=== PATIENT | male | born 1960 | race Caucasian/White ===

== ENCOUNTER 2017-07-16 13:10 | Emergency (ER) | payer OTHER, SELFPAY ==
[~2017-07-16] VITALS: Ht 175.3 cm; Wt 81.7 kg
[~2017-07-16 13:10] MED LIST: ALBU90OI INH; ALPR.5 PO; AMLO10 PO; AMLO5 PO; ARIP15 PO; ARIP20 PO; ASPI81CH PO; ASPI81EC PO; ATOR10 PO; CALCIUM 500-VI1 EACH PO; CHOL10002 PO; DICLOFENAC TOP; DIGO.125 PO; DIGOXIN; DIPATR PO; DULERA 100 MCG/13 GM INH; DULO30 PO; DULO60 PO; ENOX30I SC; ESCI20 PO; FAMO20 PO; FENO160 PO; FERGLU300 PO; FERR325 PO; FISH1000 PO; FURO20 PO; Ferrous Glucon324 MG PO; GABA300 PO; HYDACE5325 PO; HYDHCL25 PO; HYDMOR2 PO; HYDR1TAB94 PO; IRON150C PO; K-Dur10 MEQ PO; Keflex500 MG PO; LEVFLO500 PO; LISI20 PO; LISI5 PO; LORA.5 PO; MEDICAL MARIJUANA; MELO7.5 PO; METO25 PO; NITR.4SL SL; OMEG1CAP30 PO; OMEP20ER PO; OMEP40CA12 PO; OMEPRAZOLE MAGN20 MG PO; ONDA4ODT MM; ONDA8 PO; OXYACE5T PO; OXYC10TA19 PO; OXYC5 PO; Omeprazole20 M1 PO; PANT40 PO; PROM25 PO; RXOXYACE PO; RXPROM25S PR; SENN187 PO; SERT25 PO; SPIR50 PO; Senna-Docusate1 EACH PO; TRAM50 PO; TRAZ50 PO; TRIGLIDE; VANC250 PO; WARF4 PO; WARF6 PO; Zofran Odt4 MG SL; Zofran8 MG PO; [UNRECOGNIZED DRUG - CODE]
[2017-07-16 13:49] LABS: Source, Urine Clean Catch
[2017-07-16 14:06] LABS: Bilirubin, Urine Neg (Neg); Blood, Urine 5+ (Neg); Glucose Qualitative, Urine Neg (Neg); Ketones, Urine Neg (Neg); Leukocyte Esterase, Urine 2+ (Neg); Nitrite, Urine Neg (Neg); Protein, Urine 3+ (Neg); Specific Gravity, Urine 1.015 (1.003-1.022); Urobilinogen, Urine 1+ (Normal)
[2017-07-16 14:21] LABS: Appearance, Urine Cloudy (Clear); Color, Urine Red (P-Yellow)
[2017-07-16 14:30] LABS: Red Blood Cells, Urine TNTC /hpf (0-2)
[2017-07-16 14:31] LABS: Bacteria Few /hpf; Squamous Epithelial Cells Rare /hpf (Few)
[2017-07-16 15:00] LABS: BASOPHILS ABSOLUTE AUTO 0.02 K/mm3 (0.00-0.23); BASOPHILS PERCENT AUTO 0 % (0-2); EOSINOPHILS ABSOLUTE AUTO 0.23 K/mm3 (0.00-0.68); EOSINOPHILS PERCENT AUTO 3 % (0-6); Hematocrit 40.6 % (37.0-53.0); Hemoglobin 13.3 g/dL (13.5-17.5); IMMATURE GRAN ABSOLUTE AUTO 0.05 K/mm3 (0.00-0.10); IMMATURE GRAN PERCENT AUTO 1 % (0-1); LYMPHOCYTES ABSOLUTE AUTO 0.93 K/mm3 (0.84-5.20); LYMPHOCYTES PERCENT AUTO 10 % (21-46); MONOCYTES ABSOLUTE AUTO 0.99 K/mm3 (0.16-1.47); MONOCYTES PERCENT AUTO 11 % (4-13); Mean Corpuscular HGB 26.4 pg (26.0-34.0); Mean Corpuscular HGB Conc 32.8 g/dL (31.5-36.5); Mean Corpuscular Volume 81 fL (80-100); Mean Platelet Volume 9.6 fL (9.1-12.4); NEUTROPHILS ABSOLUTE AUTO 7.02 K/mm3 (1.96-9.15); NEUTROPHILS PERCENT AUTO 76 % (41-73); Platelet Count 277 K/mm3 (150-400); RDW Coefficient Variation 20.1 % (11.7-14.2); RDW Standard Deviation 57.5 fL (35.1-46.3); Red Blood Cell Count 5.03 M/mm3 (4.30-5.90); White Blood Cell Count 9.24 K/mm3 (4.00-11.30)
[2017-07-16 15:22] LABS: Alanine Aminotransfer (ALT/SGP 31 U/L (12-78); Albumin, Blood 3.9 g/dL (3.4-5.0); Alk Phos 93 U/L (50-136); Anion Gap 7 mmol/L (6-16); Aspartate Aminotrans (AST/SGOT 26 U/L (12-37); Bilirubin, Total 0.5 mg/dL (0.1-1.0); Blood Urea Nitrogen 22 mg/dL (8-24); Bun/Creatinine Ratio 24.5 (12.0-20.0); CO2, Blood 25 mmol/L (21-32); Calcium, Blood 8.1 mg/dL (8.5-10.1); Chloride, Blood 113 mmol/L (98-108); Globulin, Blood 3.9 g/dL (2.2-4.0); Glomerular Filtration Rate >60 (60-); Glucose, Blood 91 mg/dL (70-99); Potassium, Blood 3.8 mmol/L (3.5-5.5); Sodium, Blood 145 mmol/L (136-145); Total Protein, Blood 7.8 g/dL (6.4-8.2)
[2017-07-16 15:35] LABS: Prothrombin Time Results 148.7 Sec (9.7-11.5)
[2017-07-16 15:37] LABS: International Normalized Ratio < 10.00
[2017-07-16 21:22] LABS: International Normalized Ratio 2.38
[2017-07-16 21:30] LABS: Prothrombin Time Results 25.4 Sec (9.7-11.5)
== END 2017-07-16 21:45 | disposition home or self-care (01) ==
LOC: ER 13:10
PROVIDERS: Emergency Medicine
DX: R31.9 Hematuria, unspecified (principal); R79.1 Abnormal coagulation profile; I48.91 Unspecified atrial fibrillation; J44.9 Chronic obstructive pulmonary disease, unspecified; F32.9 Major depressive disorder, single episode, unspecified; I10 Essential (primary) hypertension; Z88.2 Allergy status to sulfonamides; Z88.0 Allergy status to penicillin; Z79.899 Other long term (current) drug therapy; Z79.82 Long term (current) use of aspirin; Z79.01 Long term (current) use of anticoagulants; Z95.2 Presence of prosthetic heart valve; Z95.1 Presence of aortocoronary bypass graft
CPT/HCPCS: 36415; 36430; 51798; 80053; 81001; 85025; 85610; 86900; 86901; 87086; 96361; 96374; 96375; 99285; J0171; J1200; J2405; J2930; J3430; J3490; J7030; P9059

== ENCOUNTER 2017-10-12 08:41 | Emergency (ER) | payer OTHER, SELFPAY ==
[~2017-10-12] VITALS: Ht 175.3 cm; Wt 80.7 kg
[2017-10-12 09:12] LABS: BASOPHILS ABSOLUTE AUTO 0.05 K/mm3 (0.00-0.23); BASOPHILS PERCENT AUTO 0 % (0-2); EOSINOPHILS ABSOLUTE AUTO 0.17 K/mm3 (0.00-0.68); EOSINOPHILS PERCENT AUTO 1 % (0-6); Hematocrit 54.3 % (37.0-53.0); IMMATURE GRAN ABSOLUTE AUTO 0.07 K/mm3 (0.00-0.10); IMMATURE GRAN PERCENT AUTO 1 % (0-1); LYMPHOCYTES ABSOLUTE AUTO 1.08 K/mm3 (0.84-5.20); LYMPHOCYTES PERCENT AUTO 7 % (21-46); MONOCYTES ABSOLUTE AUTO 0.94 K/mm3 (0.16-1.47); MONOCYTES PERCENT AUTO 6 % (4-13); Mean Corpuscular HGB 24.7 pg (26.0-34.0); Mean Corpuscular HGB Conc 31.3 g/dL (31.5-36.5); Mean Corpuscular Volume 79 fL (80-100); Mean Platelet Volume 9.6 fL (9.1-12.4); NEUTROPHILS ABSOLUTE AUTO 13.12 K/mm3 (1.96-9.15); NEUTROPHILS PERCENT AUTO 85 % (41-73); Platelet Count 381 K/mm3 (150-400); RDW Coefficient Variation 17.2 % (11.7-14.2); RDW Standard Deviation 45.5 fL (35.1-46.3); Red Blood Cell Count 6.88 M/mm3 (4.30-5.90); White Blood Cell Count 15.43 K/mm3 (4.00-11.30)
[2017-10-12 09:34] LABS: Albumin, Blood 4.7 g/dL (3.4-5.0); Albumin/Globulin Ratio 1.1 (0.8-1.8); Bilirubin, Total 0.8 mg/dL (0.1-1.0); Bun/Creatinine Ratio 12.6 (12.0-20.0); Calcium, Blood 9.5 mg/dL (8.5-10.1); Creatinine, Blood 1.35 mg/dL (0.60-1.20); Globulin, Blood 4.4 g/dL (2.2-4.0); Magnesium, Blood 1.9 mg/dL (1.6-2.4); Potassium, Blood 3.2 mmol/L (3.5-5.5); Total Protein, Blood 9.1 g/dL (6.4-8.2)
[2017-10-12] MEDS ORDERED: GABA300 PO (09:36)
[2017-10-12] MEDS ORDERED: TAMS.4ER PO (09:36)
[2017-10-12] MEDS ORDERED: SACC250C PO (09:37)
[2017-10-12] MEDS ORDERED: ALPR.5 PO (09:38)
[2017-10-12] MEDS ORDERED: LEVFLO500 PO (10:12)
== END 2017-10-12 10:32 | disposition home or self-care (01) ==
LOC: ER 08:41
PROVIDERS: Emergency Medicine
DX: I48.91 Unspecified atrial fibrillation (principal); N41.9 Inflammatory disease of prostate, unspecified; J40 Bronchitis, not specified as acute or chronic; E87.6 Hypokalemia; D64.9 Anemia, unspecified; J44.9 Chronic obstructive pulmonary disease, unspecified; F32.9 Major depressive disorder, single episode, unspecified; I10 Essential (primary) hypertension; Z88.2 Allergy status to sulfonamides; Z88.0 Allergy status to penicillin; Z79.899 Other long term (current) drug therapy; Z79.82 Long term (current) use of aspirin; Z79.01 Long term (current) use of anticoagulants
CPT/HCPCS: 36415; 71046; 80053; 83735; 85025; 93005; 93010; 96374; 99284

== ENCOUNTER 2017-11-09 15:50 | Emergency (ER) | payer OTHER, SELFPAY ==
[~2017-11-09] VITALS: Ht 175.3 cm; Wt 83.9 kg
[~2017-11-09 15:50] MED LIST changes: +SACC250C PO; +TAMS.4ER PO
[2017-11-09 16:28] LABS: BASOPHILS ABSOLUTE AUTO 0.04 K/mm3 (0.00-0.23); BASOPHILS PERCENT AUTO 0 % (0-2); EOSINOPHILS PERCENT AUTO 0 % (0-6); Hematocrit 52.2 % (37.0-53.0); IMMATURE GRAN ABSOLUTE AUTO 0.08 K/mm3 (0.00-0.10); IMMATURE GRAN PERCENT AUTO 1 % (0-1); LYMPHOCYTES ABSOLUTE AUTO 0.56 K/mm3 (0.84-5.20); LYMPHOCYTES PERCENT AUTO 3 % (21-46); MONOCYTES ABSOLUTE AUTO 0.27 K/mm3 (0.16-1.47); MONOCYTES PERCENT AUTO 2 % (4-13); Mean Corpuscular HGB Conc 32.6 g/dL (31.5-36.5); Mean Corpuscular Volume 74 fL (80-100); Mean Platelet Volume 10.2 fL (9.1-12.4); NEUTROPHILS ABSOLUTE AUTO 15.65 K/mm3 (1.96-9.15); NEUTROPHILS PERCENT AUTO 94 % (41-73); Platelet Count 427 K/mm3 (150-400); RDW Coefficient Variation 19.1 % (11.7-14.2); RDW Standard Deviation 45.1 fL (35.1-46.3); Red Blood Cell Count 7.07 M/mm3 (4.30-5.90)
[2017-11-09 16:45] LABS: Alanine Aminotransfer (ALT/SGP 64 U/L (12-78); Albumin, Blood 4.7 g/dL (3.4-5.0); Albumin/Globulin Ratio 1.2 (0.8-1.8); Alk Phos 90 U/L (50-136); Anion Gap 15 mmol/L (6-16); Aspartate Aminotrans (AST/SGOT 49 U/L (12-37); Bilirubin, Total 0.8 mg/dL (0.1-1.0); Blood Urea Nitrogen 19 mg/dL (8-24); Bun/Creatinine Ratio 19.5 (12.0-20.0); CO2, Blood 20 mmol/L (21-32); Calcium, Blood 9.7 mg/dL (8.5-10.1); Chloride, Blood 103 mmol/L (98-108); Creatinine, Blood 0.97 mg/dL (0.60-1.20); Glomerular Filtration Rate >60 (60-); Glucose, Blood 163 mg/dL (70-99); Potassium, Blood 3.9 mmol/L (3.5-5.5); Sodium, Blood 138 mmol/L (136-145); Total Protein, Blood 8.7 g/dL (6.4-8.2)
[2017-11-09 19:01] LABS: International Normalized Ratio 3.57; Prothrombin Time Results 38.6 Sec (9.7-11.5)
[2017-11-09] MEDS ORDERED: Ultram50 MG PO (19:15)
[2017-11-09] MEDS ORDERED: PROC10 PO (19:15)
== END 2017-11-09 19:47 | disposition home or self-care (01) ==
LOC: ER 15:50
PROVIDERS: Emergency Medicine
DX: R10.13 Epigastric pain (principal); R10.31 Right lower quadrant pain; R11.2 Nausea with vomiting, unspecified; I25.10 Atherosclerotic heart disease of native coronary artery without angina pectoris; I48.91 Unspecified atrial fibrillation; J44.9 Chronic obstructive pulmonary disease, unspecified; I10 Essential (primary) hypertension; F32.9 Major depressive disorder, single episode, unspecified; Z79.899 Other long term (current) drug therapy; Z79.82 Long term (current) use of aspirin
CPT/HCPCS: 36415; 74176; 80053; 83690; 85025; 85610; 96361; 96374; 96375; 96376; 99284; J0780; J1200; J2405; J3010; J7030

== ENCOUNTER → 2018-08-06 | Outpatient (CLI) | payer OTHER ==
[~2018-08-06] MED LIST changes: +PROC10 PO; +Ultram50 MG PO
[2018-08-06 10:33] LABS: International Normalized Ratio 2.22; Prothrombin Time Results 21.9 Sec (9.7-11.5)
== END ==
LOC: LAB EV 09:39 → LAB SHORT 09:39
PROVIDERS: Emergency Medicine
DX: Z79.01 Long term (current) use of anticoagulants (principal); Z51.81 Encounter for therapeutic drug level monitoring
CPT/HCPCS: 85610

== ENCOUNTER 2018-09-08 14:36 | Inpatient (IN) | payer OTHER ==
[~2018-09-08] VITALS: Ht 175.3 cm; Wt 82.3 kg
[~2018-09-08 14:36] MED LIST changes: -ASPI81CH PO; +Aspirin EC81 MG PO
[2018-09-08 15:03] LABS: Hematocrit 50.1 % (37.0-53.0); Hemoglobin 16.6 g/dL (13.5-17.5); Mean Corpuscular HGB 27.7 pg (26.0-34.0); Mean Corpuscular HGB Conc 33.1 g/dL (31.5-36.5); Mean Corpuscular Volume 84 fL (80-100); Mean Platelet Volume 9.8 fL (9.1-12.4); Platelet Count 231 K/mm3 (150-400); RDW Coefficient Variation 19.1 % (11.7-14.2); RDW Standard Deviation 54.1 fL (35.1-46.3); White Blood Cell Count 12.67 K/mm3 (4.00-11.30)
[2018-09-08 15:24] LABS: Prothrombin Time Results 44.1 Sec (9.7-11.5)
[2018-09-08 15:35] LABS: Anion Gap 16 mmol/L (6-16); Blood Urea Nitrogen 20 mg/dL (8-24); Bun/Creatinine Ratio 16.8 (12.0-20.0); CHOL/HDL RATIO 6.7; CO2, Blood 20 mmol/L (21-32); CPK Creatine Kinase 119 U/L (39-308); Calcium, Blood 8.4 mg/dL (8.5-10.1); Chloride, Blood 104 mmol/L (98-108); Cholesterol 242 mg/dL (50-200); Creatine Kinase MB 2.2 ng/mL (0.0-3.6); Creatine Kinase MB Index 1.8 (0.0-4.0); Creatinine, Blood 1.19 mg/dL (0.60-1.20); Glomerular Filtration Rate >60 (60-); Glucose, Blood 125 mg/dL (70-99); HDL Cholesterol 36 mg/dL (>39); LDL/HDL RATIO 4.3; Low Density Lipoprotein Chol 155 mg/dL (0-110); Magnesium, Blood 1.9 mg/dL (1.6-2.4); Potassium, Blood 3.2 mmol/L (3.5-5.5); Sodium, Blood 140 mmol/L (136-145); Triglycerides 254 mg/dL (30-160); Troponin I <0.015 ng/mL (0.000-0.040); Very Low Density Lipoprot Chol 50 mg/dL (6-32)
[2018-09-08 15:38] LABS: International Normalized Ratio 4.8
[2018-09-08 16:00] LABS: Calcium, Ionized (POC) 0.86 mmol/L (1.10-1.46); Chloride (POC) 103 mmol/L (98-108); Creatinine (POC) 1.2 mg/dL (0.8-1.3); Glucose (ISTAT POC) 130 mg/dL (70-99); Hemoglobin (POC) 17.3 g/dL (13.5-17.5); Potassium (POC) 3.2 mmol/L (3.5-5.5); Sodium (POC) 139 mmol/L (135-148); Total CO2 (POC) 21 mmol/L (21-32)
[2018-09-08] MEDS ORDERED: Ketoconazole120 ML TOP (16:38)
[2018-09-08 19:49] LABS: Hematocrit 45.3 % (37.0-53.0); Hemoglobin 15.1 g/dL (13.5-17.5)
--- NOTE | 2018-09-08 20:00 | NUR ---
Iron of Care: Care assumed at 1900hr. Patient alert and oriented, lying flat in bed. C/o pain to chest /, states greatly improved r/t first arrival to ER 04/13. Also states pain was never fully relieved, 4-5/10 since leaving [employer]. prn fentanyl 50mcg effective to decrease pain to 3-4/10. Denies dyspnea/SOB, O2-100% on RA. VSS, heart rhythm showed normal sinus at 1900, but converted to A-fibb 80's-90's approx 2000hr, pt has Hx of chronic A-fib. Rt groin site has tegaderm CHG in place, shows scant amount of blood drainage. Small grape size hematoma noted at 1900, increased in to approx walnut size by approx 2000hr. Fem-stop applied directly above insertion site, only light pressure applied, bulb not inflated. RLE appears wnl, positive pulses, capillary refill, temp, color, sensation wnl. O2-probe to rt 2nd toe, good pleth noted. Peripheral IV's x2 patent and intact. Call light in reach. Patient instructed to remain lying flat, not to lift head, or bend legs. Will continue to monitor for pain, comfort, safety.
[2018-09-08 20:08] LABS: Anion Gap 8 mmol/L (6-16); Blood Urea Nitrogen 17 mg/dL (8-24); Bun/Creatinine Ratio 17.4 (12.0-20.0); CO2, Blood 25 mmol/L (21-32); Chloride, Blood 105 mmol/L (98-108); Creatinine, Blood 0.98 mg/dL (0.60-1.20); Glomerular Filtration Rate >60 (60-); Glucose, Blood 83 mg/dL (70-99); Potassium, Blood 3.5 mmol/L (3.5-5.5); Sodium, Blood 138 mmol/L (136-145)
[2018-09-08 20:59] LABS: International Normalized Ratio 2.95
[2018-09-08 21:03] LABS: Prothrombin Time Results 28.3 Sec (9.7-11.5)
[2018-09-09 03:33] LABS: BASOPHILS ABSOLUTE AUTO 0.03 K/mm3 (0.00-0.23); BASOPHILS PERCENT AUTO 0 % (0-2); EOSINOPHILS ABSOLUTE AUTO 0.08 K/mm3 (0.00-0.68); EOSINOPHILS PERCENT AUTO 1 % (0-6); Hematocrit 44.7 % (37.0-53.0); Hemoglobin 14.7 g/dL (13.5-17.5); IMMATURE GRAN ABSOLUTE AUTO 0.04 K/mm3 (0.00-0.10); IMMATURE GRAN PERCENT AUTO 0 % (0-1); LYMPHOCYTES ABSOLUTE AUTO 0.93 K/mm3 (0.84-5.20); LYMPHOCYTES PERCENT AUTO 9 % (21-46); MONOCYTES ABSOLUTE AUTO 0.95 K/mm3 (0.16-1.47); MONOCYTES PERCENT AUTO 9 % (4-13); Mean Corpuscular HGB 28.2 pg (26.0-34.0); Mean Corpuscular HGB Conc 32.9 g/dL (31.5-36.5); Mean Corpuscular Volume 86 fL (80-100); Mean Platelet Volume 9.9 fL (9.1-12.4); NEUTROPHILS ABSOLUTE AUTO 8.12 K/mm3 (1.96-9.15); NEUTROPHILS PERCENT AUTO 80 % (41-73); Platelet Count 165 K/mm3 (150-400); Red Blood Cell Count 5.21 M/mm3 (4.30-5.90); White Blood Cell Count 10.15 K/mm3 (4.00-11.30)
[2018-09-09 03:48] LABS: International Normalized Ratio 2.77; Prothrombin Time Results 26.8 Sec (9.7-11.5)
[2018-09-09 03:51] LABS: Anion Gap 10 mmol/L (6-16); Blood Urea Nitrogen 14 mg/dL (8-24); Bun/Creatinine Ratio 15.8 (12.0-20.0); CO2, Blood 21 mmol/L (21-32); Calcium, Blood 7.5 mg/dL (8.5-10.1); Chloride, Blood 108 mmol/L (98-108); Creatinine, Blood 0.89 mg/dL (0.60-1.20); Glomerular Filtration Rate >60 (60-); Glucose, Blood 84 mg/dL (70-99); Potassium, Blood 3.8 mmol/L (3.5-5.5); Sodium, Blood 139 mmol/L (136-145)
--- NOTE | 2018-09-09 05:05 | NUR ---
CARE ASSUMED REPORT RECEIVED, CARE ASSUMED FROM NELSY LOYOLA.
--- NOTE | 2018-09-09 05:08 | NUR ---
Transfer of Care: Report given to NELSY Almazan. Patient calm and comfortable in bed at this time. Medicated with prn Fentanyl x3 and prn Dilaudid 0.5mg x2 for c/o back pain 6-7/10, with good effect noted. Chest pain persist at 4-510 but has not increased or changed since start of shift. Epi/lidocaine injections given around rt femoral access site for persistent blood oozing and s/s of increasing hematoma when fem stop (applied early in shift) removed. Fem-stop remained off since epi/lidocaine injections, no further s/s of bleeding or increase in hematoma noted. Approx walnut size hematoma at insertions site, diffuse/elongated small hematoma noted above and lateral to site.
--- NOTE | 2018-09-09 07:29 | NUR ---
SUMMARY SINCE ASSUMPTION OF CARE, VITALS STABLE. NO CHANGES IN GROIN SITE. PT MEDICATED FOR CHEST & BACK PAIN PER EMAR, WHICH PT REPORTS HE HAS BEEN EXPERIENCING SINCE ADMISSION. PT REMAINS WITH HOB FLAT TO ENSURE STABILITY OF GROIN SITE. REPORT TO DAY SHIFT RN.
--- NOTE | 2018-09-09 07:44 | NUR ---
RECEIVED REPORT FROM NELSY ZIEGLER, AND ASSUMED CARE OF PT.
--- NOTE | 2018-09-09 08:13 | NUR ---
ECHO AT BEDSIDE.
--- NOTE | 2018-09-09 09:09 | NUR ---
PARTIAL ECHOCARDIOGRAM COMPLETED
--- NOTE | 2018-09-09 10:29 | NUR ---
DR. PETERSON AT BEDSIDE FOR EVALUATION.
--- NOTE | 2018-09-09 11:11 | NUR ---
NURSING SUMMARY ALERT AND ORIENTED X 4. SR ON MONITOR, HR 80'S, SBP ELEVATED, ON ROUTINE ANTI-HYPERTENSIVES. PT WAS LAYING SUPINE, FLAT, IN REVERSE TRENDELENBERG FIRST THING THIS SHIFT, CURRENTLY IN FOWLERS POSITION, HOB ELEVATED 30 DEG, RIGHT GROIN SITE WITH ANGIOSEAL, GUAZE DRESSING WITH OPSITE OVER THE TOP, LARGE HEMATOMA FELT UNDERNEATH DRESSING AND LATERALLY TO THE RIGHT, BRUISING, NO BLEEDING AT SITE. LUNGS CLEAR, ROOM AIR. TALKING ON PHONE FREQUENTLY TODAY. ABDOMEN DISTENDED, FIRM, C/O NAUSEA AND DID HAVE ONE EMESIS THIS MORNING AFTER ZOFRAN WAS GIVEN. WAS NOT ABLE TO EAT BREAKFAST DUE TO N/V. STRONG PERIPHERAL PULSES. ECHO DONE, AWAITING RESULTS. C/O BACK PAIN, MEDICATED WITH DILAUDID 1 MG WITH GOOD RELIEF. TWO IV SITES, RFA 18G AND LAC 20G SALINE LOCKED.
--- NOTE | 2018-09-09 13:54 | NUR ---
PATIENT HAS BEEN ON THE PHONE ARGUING. NOTED ANXIETY, SHAKING, BP BECOMES ELEVATED, SCRATCHING NOSE. DOES NOT APPEAR TO BEHAVE IF HE'S IN ANY PAIN. DISCUSSED THE TELEPHONE CONVERSATIONS WITH PT, ENCOURAGED TO REFRAIN FROM BECOMING TOO STRESSED BECAUSE IT SHOWS IN HIS BLOOD PRESSURE. ENCOURAGED TO REFRAIN FROM IV PAIN MEDICATION HE DOESN'T USE IT AT HOME. ASKED WHAT PAIN MEDICATION HE USES AT HOME AND HE DENIED USING PAIN MEDICATION, STATED HE SMOKES MARIJUANA TO TAKE THE EDGE OFF. VERBALIZED UNDERSTANDING. C/O NAUSEA, EMESIS ONCE EARLY THIS SHIFT, TOLERATED 1/2 OF A TURKEY SANDWICH FOR LUNCH WITHOUT EMESIS. DOES NOT APPEAR TO BE IN ANY PAIN. VISITORS AT BEDSIDE.
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
--- NOTE | 2018-09-09 19:15 | NUR ---
ASSUMED PT CARE; BEDSIDE REPORT GIVEN PT RESTING IN BED SLEEPING; AROUSED EASILY UPON ENTERING THE ROOM. PT WAS PLEASANT AND COOPERATIVE. REPORTING OFF RN INFORMED ME THAT PT BECOMES AGITATED EASILY AND HE WILL FLIP FROM NSR TO AFIB WITH RVR AND PT NEEDS REMINDED TO RELAX AND REFOCUS HIS ATTENTION OFF OF WHAT IS CAUSING HIM TO BECOME UPSET. PT STATED THAT HE HAS PTSD AND THE SAME ISSUE KEEPS ARISING WHICH CAUSES HIM TO HAVE NIGHTMARES. PT INSTANTLY WENT FROM NSR TO AFIB WITH RVR WITH HR GETTING HIGH 150. PT REMINDED AGAIN TO TRY AND RELAX AND FIND A WAY TO COPE WITH HIS ANXIETY. PT STATED HE HAD AN APPOINTMENT WITH HIS PSYCHOLOGIST THIS WEEK THAT HE WILL KEEP THE APPOINTMENT IF CONTINUES FEELING WELL; PT ENCOURAGED TO KEEP HIS APPOINTMENT. REPORTING OFF RN RAISED CONCERN R/T PT'S BILATERAL LOWER EXTREMITIES BEING COLD TO THE TOUCH WITH A CAPILLARY REFILL GREATER THAN 5 SECONDS. PT STATED HE HAS SOME FEELING TO HIS BLE, BUT NOT A WHOLE LOT. PERIPHERAL PULSES WERE FAINT. GROIN SITE ASSESSED WITH DRESSING CDI; HEMATOMA NOTED TO SITE, WELL UP GROIN CREASE TO RIGHT HIP. CALL LIGHT IS WITHIN REACH. PT ABLE TO MAKE HIS NEEDS KNOWN. PT INFORMED THAT I WAS GOING TO GO GET REPORT ON MY OTHER TWO PATIENTS AND LOOK THINGS OVER IN THE CHART AND I'D BE BACK IN TO GIVE HIM HIS MEDICATION AND PERFORM AN ASSESSMENT. PT IN AGREEMENT AND JUST STATED HE WANTED TO GET SOME REST TONIGHT SINCE HE DIDN'T GET ANY LAST NIGHT.
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
[2018-09-10 04:23] LABS: Anion Gap 9 mmol/L (6-16); Blood Urea Nitrogen 10 mg/dL (8-24); Bun/Creatinine Ratio 11.8 (12.0-20.0); CO2, Blood 26 mmol/L (21-32); Calcium, Blood 8.3 mg/dL (8.5-10.1); Chloride, Blood 104 mmol/L (98-108); Creatinine, Blood 0.85 mg/dL (0.60-1.20); Glomerular Filtration Rate >60 (60-); Glucose, Blood 100 mg/dL (70-99); International Normalized Ratio 1.81; Potassium, Blood 3.7 mmol/L (3.5-5.5); Prothrombin Time Results 18.2 Sec (9.7-11.5); Sodium, Blood 139 mmol/L (136-145)
--- NOTE | 2018-09-10 07:15 | NUR ---
RECEIVED REPORT FROM NELSY GARZA, AND ASSUMED CARE OF PT.
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
[2018-09-10] MEDS ORDERED: FOLI1 PO (11:29)
[2018-09-10] MEDS ORDERED: ATOR40TA PO (11:29)
[2018-09-10] MEDS ORDERED: CLOP75 PO (11:29)
[2018-09-10] MEDS ORDERED: VITAMIN B-1100 MG PO (11:31)
[2018-09-10] MEDS ORDERED: HYDMOR2 PO (11:33)
--- NOTE | 2018-09-10 11:55 | NUR ---
PROVIDED PT WITH DISCHARGE INSTRUCTIONS, ANSWERED ALL QUESTIONS, FAXED PRESCRIPTIONS TO [facility] IN [place] [address] [place], GAVE PT WRITTEN PRESCRIPTION FOR DILAUDID TABS. PT CALLED [facility] TO PICK HIM UP OUT FRONT OF THE HOSPITAL AT 1200. DERRELL SANZ, ESCORTED PT OUT VIA WHEELCHAIR.
== END 2018-09-10 11:59 | disposition home or self-care (01) | DRG 247 ==
LOC: ER 14:36 → ICUW 14:46 → PCU 09-09 22:27
PROVIDERS: Emergency Medicine; Hospitalist; Internal Medicine; Internal Medicine Cardiovascular Disease; Pharmacist; ADMIT Emergency Medicine
PROC: 027034Z Dilation of Coronary Artery, One Artery with Drug-eluting Intraluminal Device, Percutaneous Approach (ICD-10-PCS; principal; 2018-09-08)
PROC: B2111ZZ Fluoroscopy of Multiple Coronary Arteries using Low Osmolar Contrast (ICD-10-PCS; 2018-09-08)
DX: I21.3 ST elevation (STEMI) myocardial infarction of unspecified site (principal); F10.239 Alcohol dependence with withdrawal, unspecified; I42.2 Other hypertrophic cardiomyopathy; I25.110 Atherosclerotic heart disease of native coronary artery with unstable angina pectoris; J44.9 Chronic obstructive pulmonary disease, unspecified; I48.0 Paroxysmal atrial fibrillation; Z95.1 Presence of aortocoronary bypass graft; Z95.2 Presence of prosthetic heart valve; Z79.01 Long term (current) use of anticoagulants; Z79.82 Long term (current) use of aspirin; K27.9 Peptic ulcer, site unspecified, unspecified as acute or chronic, without hemorrhage or perforation; M32.9 Systemic lupus erythematosus, unspecified; I10 Essential (primary) hypertension; E87.6 Hypokalemia; F41.8 Other specified anxiety disorders; Z79.02 Long term (current) use of antithrombotics/antiplatelets
CPT/HCPCS: 36415; 71045; 80047; 80048; 80061; 80069; 82550; 82553; 83735; 84484; 85014; 85018; 85025; 85027; 85347; 85610; 85730; 86850; 86900; 86901; 90686; 93005; 93010; 93308; 93321; 93454; 93455; 94762; 96361; 96374; 96375; 99152; 99153; 99285-25; C1725; C1760; C1769; C1874; C1887; C9600; G0008; J1170; J1644; J2250; J2405; J3010; J7030; P9059; Q9967

== ENCOUNTER 2018-10-10 06:17 | Day surgery (SDC) | payer OTHER ==
[~2018-10-10 06:17] MED LIST changes: +ATOR40TA PO; +CALCIUM + D3 E1 EACH PO; +CLOP75 PO; +FOLI1 PO; +Ketoconazole120 ML TOP; +VITAMIN B-1100 MG PO
--- NOTE | 2018-10-10 07:29 | NUR ---
CANCEL PROCEDURE PROCEDURE CANCELLED DUE TO PT BEING IN NSR-CONFIRMED BY DR. HURST.
== END 2018-10-10 22:52 | disposition home or self-care (01) ==
LOC: MHTC 06:17
DX: I48.3 Typical atrial flutter (principal); Z53.8 Procedure and treatment not carried out for other reasons; I25.10 Atherosclerotic heart disease of native coronary artery without angina pectoris; I42.9 Cardiomyopathy, unspecified; I10 Essential (primary) hypertension; E78.5 Hyperlipidemia, unspecified; Z79.899 Other long term (current) drug therapy; Z79.02 Long term (current) use of antithrombotics/antiplatelets; Z79.82 Long term (current) use of aspirin
CPT/HCPCS: 93005; 93010; J2370; J2704

== ENCOUNTER 2018-11-22 11:19 | Observation (INO) | payer OTHER ==
[~2018-11-22] VITALS: Ht 175.3 cm; Wt 87.5 kg
[2018-11-22 11:47] LABS: BASOPHILS ABSOLUTE AUTO 0.06 K/mm3 (0.00-0.23); BASOPHILS PERCENT AUTO 1 % (0-2); EOSINOPHILS ABSOLUTE AUTO 0.05 K/mm3 (0.00-0.68); EOSINOPHILS PERCENT AUTO 1 % (0-6); Hematocrit 48.8 % (37.0-53.0); Hemoglobin 15.8 g/dL (13.5-17.5); IMMATURE GRAN ABSOLUTE AUTO 0.04 K/mm3 (0.00-0.10); IMMATURE GRAN PERCENT AUTO 1 % (0-1); LYMPHOCYTES PERCENT AUTO 14 % (21-46); MONOCYTES PERCENT AUTO 9 % (4-13); Mean Corpuscular HGB 26.8 pg (26.0-34.0); Mean Corpuscular HGB Conc 32.4 g/dL (31.5-36.5); Mean Corpuscular Volume 83 fL (80-100); Mean Platelet Volume 9.8 fL (9.1-12.4); NEUTROPHILS ABSOLUTE AUTO 6.22 K/mm3 (1.96-9.15); NEUTROPHILS PERCENT AUTO 76 % (41-73); Platelet Count 264 K/mm3 (150-400); RDW Coefficient Variation 16.3 % (11.7-14.2); RDW Standard Deviation 49.3 fL (35.1-46.3); Red Blood Cell Count 5.89 M/mm3 (4.30-5.90); White Blood Cell Count 8.17 K/mm3 (4.00-11.30)
[2018-11-22 12:14] LABS: Alanine Aminotransfer (ALT/SGP 50 U/L (12-78); Albumin, Blood 4.2 g/dL (3.4-5.0); Albumin/Globulin Ratio 1.1 (0.8-1.8); Alk Phos 102 U/L (50-136); Anion Gap 15 mmol/L (6-16); Aspartate Aminotrans (AST/SGOT 60 U/L (12-37); Bilirubin, Total 0.8 mg/dL (0.1-1.0); Blood Urea Nitrogen 13 mg/dL (8-24); Bun/Creatinine Ratio 12.9 (12.0-20.0); CO2, Blood 22 mmol/L (21-32); Calcium, Blood 8.5 mg/dL (8.5-10.1); Chloride, Blood 102 mmol/L (98-108); Creatinine, Blood 1.01 mg/dL (0.60-1.20); Globulin, Blood 3.8 g/dL (2.2-4.0); Glomerular Filtration Rate >60 (60-); Glucose, Blood 68 mg/dL (70-99); Potassium, Blood 3.6 mmol/L (3.5-5.5); Sodium, Blood 139 mmol/L (136-145); Troponin I <0.015 ng/mL (0.000-0.040)
[2018-11-22] MEDS ORDERED: Amiodarone HCl200 MG PO (12:22)
[2018-11-22 13:01] LABS: International Normalized Ratio 2.67; Prothrombin Time Results 25.9 Sec (9.7-11.5)
[2018-11-22] MEDS ORDERED: WARF6 PO (13:41)
[2018-11-22] MEDS ORDERED: LAMO100 PO (13:43)
--- NOTE | 2018-11-22 16:11 | NUR ---
REPORT RECEIVED FROM CAYDEN MOROCHO RN
--- NOTE | 2018-11-22 18:37 | NUR ---
EKG from ED noted to show sinus rhythm; however, upon arrival to PCU, his telemetry monitoring was found to show atrial flutter, rate 103. He walked from the hallway stretcher to the bed upon arrival to PCU 12. Stated that he felt his chest pain resolved to 3/10, and denied dyspnea. He was shortly thereafter nauseated and vomited 450 cc of what looked like orange juice. Stated that he did not eat today, but did drink OJ. He broke out in a cold sweat and had a brief episode of shaking chills, which passed after 1-2 minutes. At this time, the pt was medicated with SL nitroglycerin for chest pain /10. STated that it started around 1830, and for that reason he wanted to just be left alone to lie down in the darkened room. AFter 2-3 minutes, he stated that his chest pain was resolving to 4/10. Denied dyspnea, and descibes the pain as a pressure/dullness across his chest. B/P taken; systolic was 159mmHg. spo2 97% on room air. Oxygen initiated at 2 l/min.
[2018-11-22 18:43] LABS: U Amphetamine Screen Not Detected; U Barbituate Screen Not Detected; U Benzodiazapine Screen Not Detected; U Buprenorphine Screen Not Detected; U Cannabinoids Screen DETECTED; U Cocaine Screen Not Detected; U Methadone Screen Not Detected; U Methamphetamine Screen Not Detected; U Opiates Screen DETECTED; U Oxycodone Screen Not Detected; U Phencyclidine Screen Not Detected; U Propoxyphene Screen Not Detected
--- NOTE | 2018-11-22 19:45 | NUR ---
ASSUMED CARE PT RESTING COMFORTABLY IN ROOMAT THIS TIME. PER DAY SHIFT PT CAME TO UNIT W/ CP, THAT WAS CONTROLLED W/ NITRO. PER DAY SHIFT PT HAS HX OF PTSD AND ANXIETY AND REQUESTING TO BE LFT ALONE MUCH POSSIBLE TO REDUCE STIMULI. CARDIAC PROVIDER TO COME AND SEE PT THIS EVENING. RESP EVEN UNLBAORED ON RA AT THIS TIME W/ SATS >92%. OPT REPORTS CP IS UNDER CONTORL AT THIS TIME, WILL CONTINUE TO MONITOR. CALL LIGHT IN REACH.
[2018-11-23 04:37] LABS: BASOPHILS ABSOLUTE AUTO 0.04 K/mm3 (0.00-0.23); BASOPHILS PERCENT AUTO 1 % (0-2); EOSINOPHILS ABSOLUTE AUTO 0.07 K/mm3 (0.00-0.68); EOSINOPHILS PERCENT AUTO 1 % (0-6); Hematocrit 44.8 % (37.0-53.0); Hemoglobin 14.4 g/dL (13.5-17.5); IMMATURE GRAN ABSOLUTE AUTO 0.03 K/mm3 (0.00-0.10); IMMATURE GRAN PERCENT AUTO 0 % (0-1); LYMPHOCYTES ABSOLUTE AUTO 0.99 K/mm3 (0.84-5.20); LYMPHOCYTES PERCENT AUTO 14 % (21-46); MONOCYTES ABSOLUTE AUTO 0.84 K/mm3 (0.16-1.47); MONOCYTES PERCENT AUTO 12 % (4-13); Mean Corpuscular HGB 26.9 pg (26.0-34.0); Mean Corpuscular HGB Conc 32.1 g/dL (31.5-36.5); Mean Corpuscular Volume 84 fL (80-100); Mean Platelet Volume 10.3 fL (9.1-12.4); NEUTROPHILS PERCENT AUTO 72 % (41-73); Platelet Count 223 K/mm3 (150-400); RDW Coefficient Variation 16.3 % (11.7-14.2); RDW Standard Deviation 49.5 fL (35.1-46.3); Red Blood Cell Count 5.36 M/mm3 (4.30-5.90); White Blood Cell Count 7.07 K/mm3 (4.00-11.30)
[2018-11-23 04:53] LABS: International Normalized Ratio 3.46; Prothrombin Time Results 32.8 Sec (9.7-11.5)
[2018-11-23 05:11] LABS: Anion Gap 11 mmol/L (6-16); Blood Urea Nitrogen 13 mg/dL (8-24); Bun/Creatinine Ratio 13.6 (12.0-20.0); CO2, Blood 27 mmol/L (21-32); Calcium, Blood 8.2 mg/dL (8.5-10.1); Chloride, Blood 101 mmol/L (98-108); Creatinine, Blood 0.96 mg/dL (0.60-1.20); Glomerular Filtration Rate >60 (60-); Glucose, Blood 86 mg/dL (70-99); Potassium, Blood 3.8 mmol/L (3.5-5.5); Sodium, Blood 139 mmol/L (136-145); Troponin I <0.015 ng/mL (0.000-0.040)
--- NOTE | 2018-11-23 06:02 | NUR ---
SHIFT SUMMARY PT SLEEPING IN ROOM COMFORTABLY AT THIS TIME. PT HAD EPISODES OF CP T/O NIGHT AND WAS MEDICATED FOR PAIN PER EMAR. PT WAS SEEN BY CARDIAC PROVIDER EARLY IN SHIFT AND NEW EKG OBTAINED, PT RHYTHM CHANGED FROM ST TO AFIB/AFLUTTER. PER APPLICATION OPERATIONS ENGINEER BEDTIME METOPROLOL WAS INCREASED D/T NEW RHTYHM AND WILL REEVALUTE IN THE AM. PT WAS MEDIATED ONCE T/O NIGHT FOR NAUSEA, NO VOMITING. SLEPT OFF AND ON, BUT NOT WELL. RESP IS EVEN UNLBAORED ON RA W/ SATS >92%. CALL LIGHT IN REACH.
--- NOTE | 2018-11-23 13:58 | NUR ---
Call to Dr. Roque, states ok to discharge and also that he has already spoken with Dr. Marsh. Call from Dr. Marsh, updated on pt condition. States she will be putting discharge orders in for him and he is to follow up with Dr. Doran as outpatient.
[2018-11-23] MEDS ORDERED: CARV6.25 PO (14:29)
[2018-11-23] MEDS ORDERED: TRAM50 PO (14:30)
[2018-11-23] MEDS ORDERED: NITR.4SL SL (14:30)
--- NOTE | 2018-11-23 15:23 | NUR ---
The pt has been pain free since this morning's dose of pain medication took effect. He has tolerated showering and ambulation independently in the room as well as to the bathroom. Blood pressure has remained less than 160 systolic. Education for discharge regarding new prescriptions, discontinuation of metoprolol, and follow up appointments were done with the patient. He expressed understanding of the information, and appreciation for the caring staff which he said he encountered on this admission. He was escorted to the [facility] for discharge following the discontinuation of telemetry monitoring and IV. His friend is picking him up to take him home.
== END 2018-11-23 15:22 | disposition home or self-care (01) ==
LOC: ER 11:19 → PCU 11:20 → ER 15:18 → PCU 15:18
PROVIDERS: Emergency Medicine; ADMIT Family Medicine
DX: R07.89 Other chest pain (principal); I16.0 Hypertensive urgency; I48.0 Paroxysmal atrial fibrillation; E16.2 Hypoglycemia, unspecified; R00.0 Tachycardia, unspecified; I25.10 Atherosclerotic heart disease of native coronary artery without angina pectoris; J44.9 Chronic obstructive pulmonary disease, unspecified; I10 Essential (primary) hypertension; Z95.1 Presence of aortocoronary bypass graft; Z95.2 Presence of prosthetic heart valve; Z86.79 Personal history of other diseases of the circulatory system; Z79.01 Long term (current) use of anticoagulants; Z88.2 Allergy status to sulfonamides; Z88.0 Allergy status to penicillin; Z79.899 Other long term (current) drug therapy; Z79.02 Long term (current) use of antithrombotics/antiplatelets
CPT/HCPCS: 36415; 71046; 80048; 80053; 84484; 85025; 85610; 93005; 93010; 94640; 94760; 96374; 96375; 99285-25; A9270-GY; J0360; J2405; J3010

== ENCOUNTER 2019-02-23 10:07 | Inpatient (IN) | payer OTHER ==
[~2019-02-23] VITALS: Ht 175.3 cm; Wt 88.1 kg
[~2019-02-23 10:07] MED LIST changes: +Amiodarone HCl200 MG PO; +CARV25 PO; +LAMO100 PO
[2019-02-23 11:00] LABS: BASOPHILS ABSOLUTE AUTO 0.03 K/mm3 (0.00-0.23); BASOPHILS PERCENT AUTO 0 % (0-2); EOSINOPHILS ABSOLUTE AUTO 0.01 K/mm3 (0.00-0.68); EOSINOPHILS PERCENT AUTO 0 % (0-6); Hematocrit 50.4 % (37.0-53.0); Hemoglobin 15.4 g/dL (13.5-17.5); IMMATURE GRAN ABSOLUTE AUTO 0.04 K/mm3 (0.00-0.10); IMMATURE GRAN PERCENT AUTO 0 % (0-1); LYMPHOCYTES ABSOLUTE AUTO 0.79 K/mm3 (0.84-5.20); LYMPHOCYTES PERCENT AUTO 6 % (21-46); MONOCYTES ABSOLUTE AUTO 0.64 K/mm3 (0.16-1.47); MONOCYTES PERCENT AUTO 5 % (4-13); Mean Corpuscular HGB 27.9 pg (26.0-34.0); Mean Corpuscular HGB Conc 30.6 g/dL (31.5-36.5); Mean Corpuscular Volume 91 fL (80-100); Mean Platelet Volume 9.2 fL (9.1-12.4); NEUTROPHILS ABSOLUTE AUTO 11.11 K/mm3 (1.96-9.15); NEUTROPHILS PERCENT AUTO 88 % (41-73); Platelet Count 242 K/mm3 (150-400); RDW Coefficient Variation 19.3 % (11.7-14.2); RDW Standard Deviation 64.1 fL (35.1-46.3); Red Blood Cell Count 5.52 M/mm3 (4.30-5.90); White Blood Cell Count 12.62 K/mm3 (4.00-11.30)
[2019-02-23 11:07] LABS: Alanine Aminotransfer (ALT/SGP 48 U/L (12-78); Albumin, Blood 4.4 g/dL (3.4-5.0); Albumin/Globulin Ratio 1.1 (0.8-1.8); Alk Phos 126 U/L (50-136); Anion Gap 26 mmol/L (6-16); Aspartate Aminotrans (AST/SGOT 64 U/L (12-37); Bilirubin, Total 0.8 mg/dL (0.1-1.0); Blood Urea Nitrogen 16 mg/dL (8-24); CO2, Blood 13 mmol/L (21-32); Calcium, Blood 8.7 mg/dL (8.5-10.1); Chloride, Blood 100 mmol/L (98-108); Creatinine, Blood 1.07 mg/dL (0.60-1.20); Globulin, Blood 3.9 g/dL (2.2-4.0); Glomerular Filtration Rate >60 (60-); Glucose, Blood 82 mg/dL (70-99); Magnesium, Blood 2.3 mg/dL (1.6-2.4); Potassium, Blood 4.4 mmol/L (3.5-5.5); Sodium, Blood 139 mmol/L (136-145); Total Protein, Blood 8.3 g/dL (6.4-8.2); Troponin I <0.015 ng/mL (0.000-0.040)
[2019-02-23 12:04] LABS: International Normalized Ratio No Calc
[2019-02-23 12:06] LABS: Prothrombin Time Results >90.0 Sec (9.7-11.5)
[2019-02-23] MEDS ORDERED: LAMO100 PO (14:29)
[2019-02-23] MEDS ORDERED: ESCI20 PO (14:29)
--- NOTE | 2019-02-23 16:00 | NUR ---
PT ARRIVED TO PCU VIA GURNEY FROM ED. REPORT WAS RECIEVED, PT ABLE TO STAND AND TRANSFER TO THE BED WITH ONE PERSON ASSIST, HE IS A/OX3, PLEASANT AND COOPERATIVE WITH CARE, FOLLOWS COMMANDS WELL, STATES HE HAS A BAD H/A, GAVE ICE PACK AT THIS TIME, UNTIL CAN GIVE SOME PAIN MEDS, HE SEEMS A BIT ANXIOUS, AND CONCRETE, LUNGS ARE CLEAR T/O, RESP EVEN AND UNLABORED, NO COUGH NOTED, HRIRR, TELE IN PLACE RUNNING AFIB IN THE LOW 100'S PER MONITOR, SEE STRIP, NO EDEMA NOTED, PPP+1, CAP REFILL <3SEC, VS STABLE AFEBRILE, IV SITE IS CLEAR AND PATENT, BTX4, ABD FLAT SOFT NONTENDER, VOIDS WITHOUT DIFF, SKIN HAS A BRUISE TO TOP OF HEAD FROM FALL, OTHERWISE SCATTERED BRUISING FROM FALL, MAEW, VERY WEAK WHEN UP, DEION ORIENTED TO ROOM LAYOUT AND CALL SYSTEM, CALL LIGHT IN REACH.
--- NOTE | 2019-02-23 18:21 | NUR ---
PT SEEMS TO BE FEELING BETTER, AND IN BETTER SPIRITS, RATE IN THE S, NO FURTHER CHANGES THIS SHIFT, CALL LIGHT IN REACH.
[2019-02-23 18:53] LABS: Troponin I <0.015 ng/mL (0.000-0.040)
[2019-02-23 19:40] LABS: Prothrombin Time Results >90.0 Sec (9.7-11.5)
[2019-02-23 20:08] LABS: International Normalized Ratio No Calc
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
--- NOTE | 2019-02-23 22:28 | NUR ---
ASSUMED CARE OF PATIENT AT APPROXIMATELY 1900 FROM VINOD Carver RN. PATIENT ALERT AND ORIENTED X4; TREMOR NOTED; ANXIOUS; IRRITABLE AT TIMES; HEADACHE; LILGHT AND SOUND BOTHERING HIM; SEE PREVIOUS NURSING NOTE. CIWA ORDERS PLACED. PATIENT REPORTS HEADACHE; MEDICATED PER EMAR. CIWA OF 13; MEDICATED PER EMAR. PATIENT DENIES NUMBNESS, TINGLING, DIZZINESS AND NAUSEA. PATIENT REPORTS THAT HE GET SOB AND TIRED DURING ACTIVITIES T/O THE DAY. PATIENT USES IV POLE WHEN WALKING TO BATHROOM; ONE ASSIST. PATINET WAS AFIB ON TELE WITH RATE OF 90-120'S; CARDIZEM GTT AT 5ML/HR; PATIENT CONVERTED AT 1931 TO NSR WITH PAC'S; CARDIZEM DISCONTINUED AND TORCH SOLDERER NOTIFIED; ORDERS RECIEVED FOR COREG 25MG BID. IVF INFUSING PER ORDER. PATIENT REPORTS HE DID NOT WANT TO BE ADMITTED; ANXIOUS TO GET HOME. OXYGEN SATURATION ABOVE 90% ON ROOM AIR. PATIENT CURRENTLY RESTING IN BED; CALL LIGHT IN REACH; BED IN LOWEST POSISTION; BED ALARM ON; WILL CONTINUE TO MONITOR AND ASSESS UNTIL END OF SHIFT.
--- NOTE | 2019-02-24 06:35 | NUR ---
PATIENT SLEPT ABOUT SIX HOURS LAST NIGHT. HEAD CT DONE THIS AM. VSS. PATIENT CONVERTED BACK TO AFIB THEN BACK TO NSR LAST NIGHT. MEDICATED FOR PAIN ONCE; CIWA BELOW 8. WILL CONTINUE TO MONITOR AND ASSESS UNTIL END OF SHIFT.
[2019-02-24 07:04] LABS: BASOPHILS ABSOLUTE AUTO 0.02 K/mm3 (0.00-0.23); BASOPHILS PERCENT AUTO 0 % (0-2); EOSINOPHILS ABSOLUTE AUTO 0.08 K/mm3 (0.00-0.68); EOSINOPHILS PERCENT AUTO 1 % (0-6); Hematocrit 39.3 % (37.0-53.0); Hemoglobin 12.7 g/dL (13.5-17.5); IMMATURE GRAN ABSOLUTE AUTO 0.01 K/mm3 (0.00-0.10); IMMATURE GRAN PERCENT AUTO 0 % (0-1); LYMPHOCYTES ABSOLUTE AUTO 0.64 K/mm3 (0.84-5.20); LYMPHOCYTES PERCENT AUTO 9 % (21-46); MONOCYTES ABSOLUTE AUTO 0.49 K/mm3 (0.16-1.47); MONOCYTES PERCENT AUTO 7 % (4-13); Mean Corpuscular HGB 28.1 pg (26.0-34.0); Mean Corpuscular HGB Conc 32.3 g/dL (31.5-36.5); Mean Platelet Volume 9.5 fL (9.1-12.4); NEUTROPHILS ABSOLUTE AUTO 5.57 K/mm3 (1.96-9.15); NEUTROPHILS PERCENT AUTO 82 % (41-73); Platelet Count 159 K/mm3 (150-400); RDW Coefficient Variation 18.6 % (11.7-14.2); RDW Standard Deviation 58.4 fL (35.1-46.3); Red Blood Cell Count 4.52 M/mm3 (4.30-5.90); White Blood Cell Count 6.81 K/mm3 (4.00-11.30)
[2019-02-24 07:13] LABS: Mean Corpuscular Volume 87 fL (80-100)
[2019-02-24 07:21] LABS: Alanine Aminotransfer (ALT/SGP 33 U/L (12-78); Albumin, Blood 3.4 g/dL (3.4-5.0); Albumin/Globulin Ratio 1.1 (0.8-1.8); Alk Phos 92 U/L (50-136); Anion Gap 7 mmol/L (6-16); Aspartate Aminotrans (AST/SGOT 26 U/L (12-37); Bilirubin, Total 1.1 mg/dL (0.1-1.0); Blood Urea Nitrogen 19 mg/dL (8-24); Bun/Creatinine Ratio 19.6 (12.0-20.0); CO2, Blood 29 mmol/L (21-32); Calcium, Blood 8.2 mg/dL (8.5-10.1); Chloride, Blood 101 mmol/L (98-108); Creatinine, Blood 0.97 mg/dL (0.60-1.20); Globulin, Blood 3.2 g/dL (2.2-4.0); Glomerular Filtration Rate >60 (60-); Glucose, Blood 106 mg/dL (70-99); Magnesium, Blood 2.3 mg/dL (1.6-2.4); Potassium, Blood 4.2 mmol/L (3.5-5.5); Sodium, Blood 137 mmol/L (136-145); Total Protein, Blood 6.6 g/dL (6.4-8.2)
[2019-02-24 07:36] LABS: Prothrombin Time Results 68.1 Sec (9.7-11.5)
[2019-02-24 07:45] LABS: International Normalized Ratio 7.74
--- NOTE | 2019-02-24 08:00 | NUR ---
PT RESTING IN BED AWAKE A/OX3, PLEASANT AND COOPERATIVE WITH CARE, FOLLOWS COMMANDS WELL, STATES HE HAS H/A, LUNGS ARE CLEAR T/O, RESP EVEN AND UNLABORED, HE IS ON R/A NO COUGH NOTED, HRR, TELE IN PLACE RUNNING SR PER MONITOR, SEE STRIP, NO EDEMA NOTED, PPP+1, CAP REFILL <3SEC, VS STABLE, AFEBRILE, IV SITE IS CLEAR AND PATENT, INFUSING NS AT 100 X1 LITER, BTX4, ABD FLAT SOFT NONTENDER, VOIDS WITHOUT DIFF, SKIN HAS SOME SCATTERED BRUISING, AND A SWELLING ON TOP OF HEAD WHERE HE HIT, MAEW, MUCH MORE STEADY THAN YESTERDAY, DEION, CALL LIGHT IN REACH.
--- NOTE | 2019-02-24 12:02 | NUR ---
Upon receiving a referral from an admit trigger, I visited patient. Patient openly shares about his struggles with depression, his inability to self-manage his care and his difficulties with family unit complications. I listen empathically and provide pastoral compliance counsel, companionship and prayer. Patient responds well and shows signs of an elevated mood. I will continue to remain available to patient and family.
--- NOTE | 2019-02-24 12:17 | NUR ---
PT UP TO SHOWER WITH CHAIR IN THERE FOR SUPPORT, AMBULATED STEADILY TO BATHROOM. STATES HE CAN GET EVERYTHING ELSE ON HIS OWN. SHOWED HIM CALL CORD TO USE IF HE NEEDS ANYTHING.
--- NOTE | 2019-02-24 17:27 | NUR ---
PT BECOMING ANXIOUS ABOUT GETTING DISCHARGED TO HOME. HE STATES HE DOESN'T WANT TO LEAVE AT EIGHT OCLOCK AT NIGHT, AND IS UPSET BLOOD DRAW WAS MISSED, THIS WAS REORDERED AFTER SPEAKING WITH DR. GONZALEZ, HE WAS JUST DRAWN. CALL LIGHT IN REACH.
[2019-02-24 17:41] LABS: International Normalized Ratio 2.93
[2019-02-24 18:17] LABS: Prothrombin Time Results 28.2 Sec (9.7-11.5)
--- NOTE | 2019-02-24 18:38 | NUR ---
SPOKE WITH . PT WILL BE DISCHARGED IN AM, ALSO ORDERED HIS ANTIDEP MEDS. TOLD PT HE WILL GO HOME IN THE AM, HE WAS RELIEVED. STATES HIS HEAD IS HURTING AND WOULD LIKE PAIN MEDS, THIS WILL BE GIVEN. CALL LIGHT IN REACH, NO FURTHER CHANGES.
[2019-02-25 03:48] LABS: BASOPHILS ABSOLUTE AUTO 0.01 K/mm3 (0.00-0.23); BASOPHILS PERCENT AUTO 0 % (0-2); EOSINOPHILS ABSOLUTE AUTO 0.11 K/mm3 (0.00-0.68); EOSINOPHILS PERCENT AUTO 2 % (0-6); Hematocrit 36.9 % (37.0-53.0); Hemoglobin 11.7 g/dL (13.5-17.5); IMMATURE GRAN ABSOLUTE AUTO 0.03 K/mm3 (0.00-0.10); IMMATURE GRAN PERCENT AUTO 1 % (0-1); LYMPHOCYTES ABSOLUTE AUTO 0.68 K/mm3 (0.84-5.20); LYMPHOCYTES PERCENT AUTO 12 % (21-46); MONOCYTES ABSOLUTE AUTO 0.55 K/mm3 (0.16-1.47); MONOCYTES PERCENT AUTO 10 % (4-13); Mean Corpuscular HGB 28.1 pg (26.0-34.0); Mean Corpuscular HGB Conc 31.7 g/dL (31.5-36.5); Mean Corpuscular Volume 89 fL (80-100); Mean Platelet Volume 9.1 fL (9.1-12.4); NEUTROPHILS ABSOLUTE AUTO 4.16 K/mm3 (1.96-9.15); NEUTROPHILS PERCENT AUTO 75 % (41-73); Platelet Count 131 K/mm3 (150-400); RDW Coefficient Variation 18.1 % (11.7-14.2); RDW Standard Deviation 58.5 fL (35.1-46.3); Red Blood Cell Count 4.16 M/mm3 (4.30-5.90); White Blood Cell Count 5.54 K/mm3 (4.00-11.30)
[2019-02-25 04:03] LABS: International Normalized Ratio 1.78
[2019-02-25 04:05] LABS: Anion Gap 5 mmol/L (6-16); Blood Urea Nitrogen 19 mg/dL (8-24); Bun/Creatinine Ratio 16.4 (12.0-20.0); CO2, Blood 29 mmol/L (21-32); Calcium, Blood 8.3 mg/dL (8.5-10.1); Chloride, Blood 103 mmol/L (98-108); Creatinine, Blood 1.16 mg/dL (0.60-1.20); Glomerular Filtration Rate >60 (60-); Glucose, Blood 137 mg/dL (70-99); Potassium, Blood 4.1 mmol/L (3.5-5.5); Sodium, Blood 137 mmol/L (136-145)
[2019-02-25 04:08] LABS: Prothrombin Time Results 17.9 Sec (9.7-11.5)
--- NOTE | 2019-02-25 05:30 | NUR ---
SHIFT SUMMARY PT SLEEPING IN ROOM COMFORTABLY AT THIS TIME. NO ACUTE CHANGES IN STATUS T/O NIGHT. PT SLEPT WELL IN SHORT PERIODS OFF AND ON. DENIED CP, OR SOB. PT IND IN ROOM TO RR. RESP EVEN UNLABORED ON RA W/ SATS >92%. PT HR DID CONVERT BACK TO AFLUTTER FOR SHORT PERIOD OF TIME DURING NIGHT, PT WAS ASYMPTOMATIC OF ANY CHANGES. PT NOW BACK IN NSR AT THIS TIME W/ HR BETWEEN 60-80. CALL LIGHT IN REACH.
[2019-02-25] MEDS ORDERED: ACET325 PO (10:03)
[2019-02-25] MEDS ORDERED: DILT60 PO (10:05)
[2019-02-25] MEDS ORDERED: ONDA4ODT MM (10:06)
[2019-02-25] MEDS ORDERED: ENOX100I SC (10:08)
--- NOTE | 2019-02-25 10:34 | NUR ---
ECHOCARDIOGRAM COMPLETED
--- NOTE | 2019-02-25 12:50 | NUR ---
DISCHARGE SUMMARY PT A&Ox3, ANXIOUS, COOPERATIVE WITH CARE. PT RESTING IN BED DURING SHIFT. UP IND IN ROOM. PT REPORTS 5/10 HEADACHE, OFFERED TYLENOL, PT DENLINES MEDICATIONS. PT REPORTS DIZZINESS WHEN INITIALLY STANDING, STATES HE SITS FOR "A COUPLE MOMENTS" THEN GETS UP. PT DENIES SOB AND NAUSEA. PT RECEIVING PO CARDIZEM, HELD THE 1130 DOSE DUE TO BP. VSS. OTHER ACUTE CHANGES NOTED. PT EDUCATED ON DISCHARGE INSTUCTIONS, MEDICATIONS, FOLLOWING UP WITH PCP AND STACY. PRESCRIPTIONS FAXED TO [facility] IN [place] PER PT REQUEST. PT LEFT ROOM VIA WHEELCHAIR AT 1053. PT STABLE UPON DISCHARGE.
== END 2019-02-25 10:56 | disposition home or self-care (01) | DRG 914 ==
LOC: ER 10:07 → PCU 14:21 → ER 14:26 → PCU 14:54
PROVIDERS: Emergency Medicine; ADMIT Family Medicine
DX: S09.90XA Unspecified injury of head, initial encounter (principal); I48.92 Unspecified atrial flutter; Z79.01 Long term (current) use of anticoagulants; I16.0 Hypertensive urgency; Z95.2 Presence of prosthetic heart valve; I25.10 Atherosclerotic heart disease of native coronary artery without angina pectoris; Z95.1 Presence of aortocoronary bypass graft; J44.9 Chronic obstructive pulmonary disease, unspecified; K21.9 Gastro-esophageal reflux disease without esophagitis; F32.9 Major depressive disorder, single episode, unspecified; F41.8 Other specified anxiety disorders; F10.10 Alcohol abuse, uncomplicated
CPT/HCPCS: 36415; 70450; 71045; 80048; 80053; 83735; 83880; 84443; 84484; 85025; 85610; 93005; 93010; 93308; 93321; 94640; 94760; 96365; 96372-59; 96375; 96376; 99285-25; A9270; J1650; J2060; J2270; J2405; J3010; J3411; J3430; J3475; J7030; J7042

== ENCOUNTER 2019-02-27 07:41 | Day surgery (SDC) | payer OTHER ==
[~2019-02-27 07:41] MED LIST changes: +ACET325 PO; +DILT60 PO; +ENOX100I SC
== END 2019-02-27 09:10 | disposition home or self-care (01) ==
LOC: ATC 07:41
DX: I48.91 Unspecified atrial fibrillation (principal); I10 Essential (primary) hypertension; J44.9 Chronic obstructive pulmonary disease, unspecified; Z88.0 Allergy status to penicillin; Z88.2 Allergy status to sulfonamides; Z79.02 Long term (current) use of antithrombotics/antiplatelets; Z79.899 Other long term (current) drug therapy
CPT/HCPCS: 36416; 85610; 96372; J1650

== ENCOUNTER 2019-02-28 00:05 | Day surgery (SDC) | payer OTHER | END 2019-02-28 09:11 | disposition home or self-care (01) | LOC: ATC 00:05 | DX: I48.91 Unspecified atrial fibrillation (principal); I48.92 Unspecified atrial flutter; I25.10 Atherosclerotic heart disease of native coronary artery without angina pectoris; F41.8 Other specified anxiety disorders; I10 Essential (primary) hypertension; K44.9 Diaphragmatic hernia without obstruction or gangrene; Z88.0 Allergy status to penicillin; Z95.1 Presence of aortocoronary bypass graft; Z88.2 Allergy status to sulfonamides; Z79.899 Other long term (current) drug therapy; Z79.02 Long term (current) use of antithrombotics/antiplatelets; Z95.2 Presence of prosthetic heart valve | CPT/HCPCS: 36416; 85610; 96372; J1650 ==

== ENCOUNTER 2019-03-01 08:56 | Day surgery (SDC) | payer OTHER ==
--- NOTE | 2019-03-01 09:15 | NUR ---
INR: 2.4, NO LOVENOX GIVEN
== END 2019-03-01 09:15 | disposition home or self-care (01) ==
LOC: ATC 08:56
DX: I48.91 Unspecified atrial fibrillation (principal); I48.92 Unspecified atrial flutter; I10 Essential (primary) hypertension; I25.10 Atherosclerotic heart disease of native coronary artery without angina pectoris; Z95.2 Presence of prosthetic heart valve; Z79.01 Long term (current) use of anticoagulants; Z79.02 Long term (current) use of antithrombotics/antiplatelets; Z79.899 Other long term (current) drug therapy; Z88.0 Allergy status to penicillin; Z88.2 Allergy status to sulfonamides
CPT/HCPCS: 36416; 85610; 99211

== ENCOUNTER 2019-03-29 10:40 | Inpatient (IN) | payer OTHER ==
[~2019-03-29] VITALS: Ht 175.3 cm; Wt 87.4 kg
[2019-03-29 11:10] LABS: Calcium, Ionized (POC) 1.09 mmol/L (1.10-1.46); Chloride (POC) 101 mmol/L (98-108); Creatinine (POC) 1.2 mg/dL (0.8-1.3); Glucose (ISTAT POC) 95 mg/dL (70-99); Hemoglobin (POC) 17.7 g/dL (13.5-17.5); Potassium (POC) 3.5 mmol/L (3.5-5.5); Sodium (POC) 139 mmol/L (135-148); Total CO2 (POC) 22 mmol/L (21-32)
[2019-03-29 11:27] LABS: BASOPHILS ABSOLUTE AUTO 0.03 K/mm3 (0.00-0.23); BASOPHILS PERCENT AUTO 0 % (0-2); EOSINOPHILS ABSOLUTE AUTO 0.01 K/mm3 (0.00-0.68); EOSINOPHILS PERCENT AUTO 0 % (0-6); Hemoglobin 16.8 g/dL (13.5-17.5); IMMATURE GRAN ABSOLUTE AUTO 0.08 K/mm3 (0.00-0.10); IMMATURE GRAN PERCENT AUTO 1 % (0-1); LYMPHOCYTES ABSOLUTE AUTO 0.64 K/mm3 (0.84-5.20); LYMPHOCYTES PERCENT AUTO 5 % (21-46); MONOCYTES PERCENT AUTO 5 % (4-13); Mean Corpuscular HGB 29.5 pg (26.0-34.0); Mean Corpuscular HGB Conc 33.6 g/dL (31.5-36.5); Mean Corpuscular Volume 88 fL (80-100); Mean Platelet Volume 10.6 fL (9.1-12.4); NEUTROPHILS PERCENT AUTO 88 % (41-73); Platelet Count 74 K/mm3 (150-400); RDW Coefficient Variation 16.7 % (11.7-14.2); RDW Standard Deviation 52.8 fL (35.1-46.3); White Blood Cell Count 11.86 K/mm3 (4.00-11.30)
[2019-03-29 11:48] LABS: Prothrombin Time Results 40.8 Sec (9.7-11.5)
[2019-03-29 11:56] LABS: Albumin, Blood 4.3 g/dL (3.4-5.0); Albumin/Globulin Ratio 1.3 (0.8-1.8); Alk Phos 136 U/L (50-136); Anion Gap 13 mmol/L (6-16); Bilirubin, Total 2.7 mg/dL (0.1-1.0); Blood Urea Nitrogen 19 mg/dL (8-24); Bun/Creatinine Ratio 18.1 (12.0-20.0); CO2, Blood 22 mmol/L (21-32); Chloride, Blood 102 mmol/L (98-108); Creatinine, Blood 1.05 mg/dL (0.60-1.20); Globulin, Blood 3.4 g/dL (2.2-4.0); Glomerular Filtration Rate >60 (60-); Glucose, Blood 91 mg/dL (70-99); Potassium, Blood 3.4 mmol/L (3.5-5.5); Sodium, Blood 137 mmol/L (136-145); Total Protein, Blood 7.7 g/dL (6.4-8.2); Troponin I <0.015 ng/mL (0.000-0.040)
[2019-03-29 11:59] LABS: International Normalized Ratio 4.4
[2019-03-29 12:21] LABS: Alanine Aminotransfer (ALT/SGP 5836 U/L (12-78); Aspartate Aminotrans (AST/SGOT 10189 U/L (12-37)
--- NOTE | 2019-03-29 19:24 | NUR ---
ADMIT NOTE/SHIFT SUMMARY RECEIVED REPORT FROM NELSY MAHAJAN IN ED. PT TO ROOM VIA GURNEY AT 1500. TRANSFERED TO BED WITH SBA. PT ON PROTONIX AT 10MG/HR AND CARDIZEM 5MG/HR. PT REPORTS HAVING BLOOD IN VOMIT STARTING YESTERDAY, STATES EPIGASTRIC PAIN AND DIARRHEA FOR THE PAST COUPLE OF DAYS. PT ORIENTED TO ROOM AND CALL LIGTH. PT EDUCATED ON FALL RISK AND BED ALARM, IN PLACE. PT A&Ox4. CALM AND COOPERATIVE WITH CARE. PT ON BEDREST. PT REPORTS SHARP EPIGASTRIC PAIN 02/11, MEDICATED x1 WITH FENTNYL, RESULTS 08/14. PT REPORTS BEING SOB, BREATHING EVEN AND UNLABORED, LS CLEAR, SPO2 >94% ON RA, SPEAKING FULL SENTENCES WITHOUT DISTRESS. PT REPORTS NAUSEA, DENIES NEEDS FOR ZOFRAN AT THIS TIME. PT "SPITTING" UP RED/PINK FLUIDS. ON ADMISSION TELE AFLUTTER AVER 90-100, PT CONVERTED AT APPROX 1600 TO SR/ST 90-100 WITH PAC, THIS EVENING PT SR 70'S WITH PAC, CARDIMARY KAYM DRIP D/C AT 1605, DR BARRETO NOTIFIED. PLANS FOR EGD IN AM, CURRENTLY NPO. INR 4.4, PT RECEIVED 2 UNITS OF FFP, APPEARS TO HAVE TOLERATED WELL. VSS. NO OTHER ACUTE CHANGES NOTED DURING SHIFT. REPORT GIVEN TO ONCOMING NELSY.
--- NOTE | 2019-03-29 22:36 | NUR ---
UPDATE PATIENT REPORTS FEELING LIKE HIS ABD IS "FULL AND BLOATED." PATIENT PROVIDED WITH PAIN MEDICATION PER EMAR. A HEATING PAD PROVIDED FOR ABD WELL AND PATIENT REPORTS SOME RELIEF. PATIENT REPORTS HE DOES NOT FEEL NAUSOUS AT THIS TIME BUT HE THINKS "VOMITING WOULD HELP THE FULL FEELING." PATIENT SPITING UP RED SALIVA AT THIS TIME. PATIENT CURRENTLY RESTING IN BED WITH HEATING PAD IN PLACE. PROTONIX GTT RUNNING PER ORDERS. EDWARD CONTINUE TO MONITOR.
[2019-03-30 03:29] LABS: Hematocrit 37.6 % (37.0-53.0); Hemoglobin 12.9 g/dL (13.5-17.5)
[2019-03-30 04:08] LABS: Albumin, Blood 3.4 g/dL (3.4-5.0); Albumin/Globulin Ratio 1.3 (0.8-1.8); Alk Phos 106 U/L (50-136); Anion Gap 12 mmol/L (6-16); Bilirubin, Total 2.3 mg/dL (0.1-1.0); Blood Urea Nitrogen 19 mg/dL (8-24); Bun/Creatinine Ratio 20.7 (12.0-20.0); CO2, Blood 22 mmol/L (21-32); Calcium, Blood 7.9 mg/dL (8.5-10.1); Chloride, Blood 108 mmol/L (98-108); Creatinine, Blood 0.92 mg/dL (0.60-1.20); Globulin, Blood 2.7 g/dL (2.2-4.0); Glomerular Filtration Rate >60 (60-); Glucose, Blood 75 mg/dL (70-99); Potassium, Blood 3.4 mmol/L (3.5-5.5); Sodium, Blood 142 mmol/L (136-145); Total Protein, Blood 6.1 g/dL (6.4-8.2)
[2019-03-30 05:14] LABS: Alanine Aminotransfer (ALT/SGP 3507 U/L (12-78); Aspartate Aminotrans (AST/SGOT 3756 U/L (12-37)
--- NOTE | 2019-03-30 05:30 | NUR ---
UPDATE DR OMER NOTIFIED OF PATIENT'S HGB RESULTS THIS MORNING. NO ORDERS GIVEN. NOTIFIED THAT NO INR WAS CHECKED THIS AM. AN ORDER FOR CHECKING AN INR RECIEVED.
--- NOTE | 2019-03-30 07:17 | NUR ---
SHIFT SUMMARY PATIENT PLEASENT AND COOPERATIVE THIS AM. PATIENT APPEARS SLIGHTLY ANXIOUS ABOUT POSSIBLE DIAGNOSIS AND PROCEDURE TODAY. PATIENT APPARED TO NAP ON AND OFF THROUGHOUT THE NIGHT, PATIENT REPORTED THAT HE THINKS HE SLEPT ABOUT THREE HOURS LAST NIGHT WHICH IS MORE SLEEP THAN HE THOUGHT HE WOULD GET. PATIENT MEDICATED FOR PAIN PER EMAR. PATIENT HAD NAUSEA AND DRY HEAVING THIS AM, MEDICATED PER EMAR WITH RELIEF. PROTONIX GTT RUNNING PER ORDERS. VITAL SIGNS CHARTED. REPORT GIVEN TO ONCOMING RN.
[2019-03-30 07:19] LABS: International Normalized Ratio 2.82; Prothrombin Time Results 27.2 Sec (9.7-11.5)
--- NOTE | 2019-03-30 07:40 | NUR ---
NURSING PCU DAYSHIFT: Assumed care of pt at approx 0700. A/O, very pleasant and cooperative w/care. C/O 5/10 abd pain consistent w/discomfort just prior to admit. Skin is intact w/scattered bruising to ext's. Very mild general weakness, able to ambulate w/SBA for line management. Tele in place, NSR, mech valve auscultated, no c/o CP/pressure, BP stable, no noted edema. L/S fairly cta t/o w/dim bases, O2 sat upper 90's on RA, denies cough, dyspnea w/exertion. Abd mildly distended and tender, BT+, c/o nausea, voiding w/o difficulty. PIV x2, protonix gtt at 10cc/hr. No s/s of acute distress at this time. Pt denies any current needs or questions regarding plan of care. EGD scheduled for early afternoon, pt remains NPO at this time. Call light in reach, awaiting rounding from PMD, cont to monitor for any changes.
[2019-03-30 13:19] LABS: Hematocrit 35.9 % (37.0-53.0); Hemoglobin 11.9 g/dL (13.5-17.5)
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
--- NOTE | 2019-03-30 17:35 | NUR ---
03/30/19 1735 Jamee Menon PATIENT DETERMINED TO BE ASA APPROPRIATE FOR PROPOFOL SEDATION PRIOR TO START OF PROCEDURE BY DR. HERNANDEZ. 3-LEAD EKG REVIEWED WITH PHYSICIAN PRIOR TO START OF PROCEDURE. PATIENT CONFIRMS NPO STATUS AND AGREES WITH SCHEDULED PROCEDURE. History, Chart, Medications and Allergies reviewed before start of procedure. MONITOR INTACT WITH CONTINUOUS PULSE OXIMETRY AND INTERMITTENT BP. Bite Block Placed. O2 VIA POM AT 10 L.
--- NOTE | 2019-03-30 17:46 | NUR ---
NURSING PCU DAYSHIFT SUMMARY: No significant changes noted t/o the shift. Pt remained NPO for EGD scheduled this afternoon. Xfer to say surgery at approx 1630 for procedure. VS remained stable t/o the shift. 1230 diltiazem held d/t SBP <100. Pt remained NSR, tele removed for procedure. Awaiting return post EGD. Will recover pt in unit as per protocol. Rpt to be given to MAURO RN.
[2019-03-30 21:23] LABS: Hematocrit 34.8 % (37.0-53.0); Hemoglobin 11.8 g/dL (13.5-17.5)
[2019-03-31 04:23] LABS: Hematocrit 34.1 % (37.0-53.0); Hemoglobin 11.4 g/dL (13.5-17.5)
[2019-03-31 04:41] LABS: Prothrombin Time Results 40.1 Sec (9.7-11.5)
[2019-03-31 04:45] LABS: Anion Gap 5 mmol/L (6-16); Blood Urea Nitrogen 21 mg/dL (8-24); Bun/Creatinine Ratio 18.9 (12.0-20.0); CO2, Blood 29 mmol/L (21-32); Calcium, Blood 8.2 mg/dL (8.5-10.1); Chloride, Blood 107 mmol/L (98-108); Creatinine, Blood 1.11 mg/dL (0.60-1.20); Glomerular Filtration Rate >60 (60-); Glucose, Blood 112 mg/dL (70-99); Magnesium, Blood 1.9 mg/dL (1.6-2.4); Potassium, Blood 3.5 mmol/L (3.5-5.5); Sodium, Blood 141 mmol/L (136-145)
[2019-03-31 04:52] LABS: International Normalized Ratio 4.32
--- NOTE | 2019-03-31 07:24 | NUR ---
SHIFT SUMMARY PATIENT PLEASENT AND COOPERATIVE [facility] CARE LAST NIGHT. PATIENT APPEARED TO NAP ON AND OFF THROUGHOUT THE NIGHT. PATIENT REPORTED THAT HIS ABD PAIN WAS STILL THERE BUT IT WAS "BETTER THAN LAST NIGHT." PATIENT MEDICATED FOR PAIN PER EMAR. VITAL SIGNS CHARTED. REPORT GIVEN TO ONCOMING RN.
--- NOTE | 2019-03-31 08:51 | NUR ---
Assumed care of patient from NOC shift RN 0715. 0800-patient c/o 01/11 mid-upper gastric pain, requesting pain medication. No other complaints at this time. Dr. Mueller in around 729, patient may go home today from his point of view. Waiting on primary doctor to make rounds. Notified Dr. Mueller of INR of 4.32 this am. Orders pending.
--- NOTE | 2019-03-31 11:33 | NUR ---
Spiritual care visit conducted. Patient explains about his recent "scope" and tells me that there was not a clear indication of where the blood that he was vomitting came from. Patient states that he is just trying to pass the time by sleeping so I make visit brief. I normalize patient experience, encourage self-care and provide prayer. Patient responds well and voices appreciation for the visit.
[2019-03-31 13:04] LABS: Hematocrit 34.7 % (37.0-53.0); Hemoglobin 11.4 g/dL (13.5-17.5)
--- NOTE | 2019-03-31 18:18 | NUR ---
DAY SHIFT SUMMARY-No acute changes, continues to request pain medication every 4 hours for upper gastric pain. Requesting soup and 1/2 sandwich for dinner, which he was able to eat without problems. Had Ultrasound of R upper abdomen today, results pending.
[2019-04-01 04:27] LABS: Alanine Aminotransfer (ALT/SGP 1624 U/L (12-78); Albumin, Blood 2.9 g/dL (3.4-5.0); Albumin/Globulin Ratio 1.1 (0.8-1.8); Alk Phos 96 U/L (50-136); Anion Gap 7 mmol/L (6-16); Aspartate Aminotrans (AST/SGOT 563 U/L (12-37); Bilirubin, Total 1.2 mg/dL (0.1-1.0); Blood Urea Nitrogen 14 mg/dL (8-24); CO2, Blood 27 mmol/L (21-32); Calcium, Blood 8.1 mg/dL (8.5-10.1); Chloride, Blood 106 mmol/L (98-108); Creatinine, Blood 0.94 mg/dL (0.60-1.20); Globulin, Blood 2.7 g/dL (2.2-4.0); Glomerular Filtration Rate >60 (60-); Glucose, Blood 142 mg/dL (70-99); Potassium, Blood 3.1 mmol/L (3.5-5.5); Prothrombin Time Results 45.7 Sec (9.7-11.5); Sodium, Blood 140 mmol/L (136-145); Total Protein, Blood 5.6 g/dL (6.4-8.2)
[2019-04-01 04:42] LABS: International Normalized Ratio 4.99
--- NOTE | 2019-04-01 05:31 | NUR ---
SHIFT SUMMARY PT A&O X4. VSS. CALL TO MD SCHWAB THIS AM TO REPORT POTASSIUM OF 3.1. MD Tiwari/ ORDERS FOR ONE TIME K SUPPLEMENTATION, SEE ORDERS. REPORT OF CRITICALLY HIGH INR OF 4.99 ALSO REPORTED TO MD Tiwari/ INSTRUCTIONS FOR COUMADIN TO BE HELD TODAY, PHARMACY MANAGING COUMADIN. PT CONTINUES TO C/O ABD PAIN, PAIN BEING MANAGED PER EMAR/PT REQUEST. WILL CONTINUE TO MONITOR AND PROVIDE CARE UNTIL REPORT OFF TO DAY SHIFT RN.
--- NOTE | 2019-04-01 08:16 | NUR ---
Assumed care of patient from MAURO RN at 0715. 0730-Patient awake and alert, reports abdominal pain about a 3 still. PAS stockings removed to allow patient BRP at side of bed to use urinal. VS stable, plan to space BP medications out this AM to monitor closer for drop like yesterday. 0815-recheck BP prior to giving Coreg 127/74.
--- NOTE | 2019-04-01 17:33 | NUR ---
DAY SHIFT SUMMARY-Patient states he "feels better" over all today. Pain has been controlled with Q4 hour Fentanyl with last dose bringing level down to "2" per patient report 2 hours post medication. He tolerated getting OOB and taking a shower, slightly SOB afterwards, but recovered quickly after sitting in chair while bed linens changed. BP remained above 100 Systolic today, drinking water to keep hydrated. No other problems/issues to report.
--- NOTE | 2019-04-01 19:27 | NUR ---
CARE ASSUMPTION PT A&O X4. VSS. PT REPORTS "DULL STABBING" 3/10 UPPER ABD PAIN IN WHICH PT WAS RECENTLY MEDICATED FOR. PT REPORTS NEED TO GO HOME TOMORROW TO CARE FOR HIS DOG D/T HIS SISTER LEAVING TOWN TOMORROW. PT STATES "I'LL STAY IF I REALLY NEED TO, BUT IF I CAN GO TOMORROW, I NEED TO GO." WILL CONTINUE TO MONITOR AND PROVIDE CARE.
--- NOTE | 2019-04-01 23:20 | NUR ---
PAIN UPDATE UPON CARE ASSUMPTION, PAIN WAS ASSESED & PHARMACOLOGICAL & NONPHARMACOLOGICAL PAIN MANAGEMENT INTERVENTIONS WERE DISCUSSED W/ PT W/ INTENT OF PAIN MANAGEMENT PLAN AND HOME TX, CONFRONTING PT'S CURRENT PAIN MANAGEMENT NEEDS. UPON ENTERING ROOM THIS EVENING DURING ROUNDING, PT UPSET, STATING "I'M AN HOUR AND A HALF OVERDUE FOR PAIN MEDICINE!" PAIN MEDICATION WAS THEN OFFERED TO PT & RE-EDUCATION PROVIDED TO PT ON Q4 PRN MEDICATION NEEDING TO BE ASKED FOR BY PT NEEDED IT IS NOT A ROUTINELY PROVIDED SCHEDULED MEDICATION. 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 I'LL JUST LAY HERE IN PAIN AND GO WITHOUT MY MEDICINE." DISCUSSED MISINTERPRETATION W/ PT, STATING THE INTENDED MESSAGE EARLIER TO HAVE BEEN "MEDICATION IS AVAILABLE EVERY 4 HOURS NEEDED, TRY NOT TO WATCH THE CLOCK, BUT CALL IF YOU DO NEED MEDICINE." PT ENCOURAGED TO USE PHARMACOLOGICAL & NONPHARMACOLOGICAL APPROACHES AVAILABLE TO KEEP IN FRONT OF PAIN TO BEST OF AVAILABILITY. PT REFUSING MEDICATION/CARE AT THIS TIME, AGAIN STATING "NO, I'LL JUST LAY HERE AWAKE IN PAIN." PT ASSURED THAT MEDICATION OR HOT PAD IS AVAILABLE WHEN/IF PT READY.
[2019-04-02 04:34] LABS: Hematocrit 34.5 % (37.0-53.0); Hemoglobin 11.1 g/dL (13.5-17.5)
[2019-04-02 04:48] LABS: International Normalized Ratio 3.59; Prothrombin Time Results 33.9 Sec (9.7-11.5)
[2019-04-02 05:12] LABS: Alanine Aminotransfer (ALT/SGP 1135 U/L (12-78); Albumin/Globulin Ratio 1.1 (0.8-1.8); Alk Phos 96 U/L (50-136); Anion Gap 5 mmol/L (6-16); Aspartate Aminotrans (AST/SGOT 231 U/L (12-37); Blood Urea Nitrogen 14 mg/dL (8-24); Bun/Creatinine Ratio 13.7 (12.0-20.0); CO2, Blood 29 mmol/L (21-32); Calcium, Blood 8.4 mg/dL (8.5-10.1); Chloride, Blood 107 mmol/L (98-108); Creatinine, Blood 1.02 mg/dL (0.60-1.20); Globulin, Blood 2.8 g/dL (2.2-4.0); Glomerular Filtration Rate >60 (60-); Glucose, Blood 116 mg/dL (70-99); Potassium, Blood 3.7 mmol/L (3.5-5.5); Sodium, Blood 141 mmol/L (136-145); Total Protein, Blood 5.8 g/dL (6.4-8.2)
--- NOTE | 2019-04-02 05:44 | NUR ---
SHIFT SUMMARY PT MEDICAL NO TELE STATUS. A&O X4. VSS. PT CONTINUES TO C/O ABD PAIN, MEDICATING PER EMAR. PT ANTICIPATING DISCHARGE HOME TODAY. WILL CONTINUE TO MONITOR AND PROVIDE CARE UNTIL REPORT OFF TO DAY SHIFT RN.
--- NOTE | 2019-04-02 08:45 | NUR ---
REPORT REC'D FROM NOC RN. PT RESTING IN BED. STATES NO DIFF WITH BREAKFAST THIS MORNING. DISCUSSED ABD PAIN, PT STATES WORSENS EACH DAY. NOTED NO BM SINCE 03-28. DISCUSSED CONSTIPATION AND CONTRIBUTING FACTORS (DECREASED ACTIVITY, REG PAIN MED USE) WILL DISCUSS WITH . ASSESS COMPLETE, VSS, ALTHOUGH HR UNDER PARAMETERS FOR PO CARDIZEM, HELD. ENCOURAGE INCREASE IN MOVEMENT/OOB. POSSIBLE DC TODAY, CONT TO MONITOR.
[2019-04-02] MEDS ORDERED: PANT40 PO (15:07)
[2019-04-02] MEDS ORDERED: WARF3 PO (15:09)
--- NOTE | 2019-04-02 17:19 | NUR ---
DR JIMÉNEZ CALLED AT APPROX 1330 TO STATE PT WILL DC HOME, STATES SHANON WRITTEN. DISCUSSED PLAN WITH PT AND MED CHANGES. SINCE PT NEEDS MED TONIGHT HE REQUESTED MEDS BE SENT TO [facility] [address] INSTEAD OF [facility]. DISCUSSED DC INSTRUCTIONS, MED CHANGES, LAB DRAW FOR TOMORROW, AND NEED TO CALL [facility] TOMORROW TO SCHEDULE F/U APPOINTMENTS. ENCOURAGED MORE ACTIVITY TO HELP RELIEVE CONSTIPATION. PT STATES HE JUST HAD A BOWEL MOVEMENT. ANSWERED ALL QUESTIONS. PT DC'D HOME IN STABLE CONDITION. AID ESCORTED OUT TO VEHICLE VIA WC.
== END 2019-04-02 15:57 | disposition home or self-care (01) | DRG 378 ==
LOC: ER 10:40 → PCU 14:54
PROVIDERS: Emergency Medicine; Family Medicine; Internal Medicine; Internal Medicine Gastroenterology; Physician Assistant; ADMIT Internal Medicine
PROC: 0DJ08ZZ Inspection of Upper Intestinal Tract, Via Natural or Artificial Opening Endoscopic (ICD-10-PCS; principal; 2019-03-31)
DX: K25.4 Chronic or unspecified gastric ulcer with hemorrhage (principal); I42.2 Other hypertrophic cardiomyopathy; K86.1 Other chronic pancreatitis; I42.1 Obstructive hypertrophic cardiomyopathy; I48.92 Unspecified atrial flutter; D62 Acute posthemorrhagic anemia; M32.9 Systemic lupus erythematosus, unspecified; J44.9 Chronic obstructive pulmonary disease, unspecified; I10 Essential (primary) hypertension; F32.9 Major depressive disorder, single episode, unspecified; Z95.1 Presence of aortocoronary bypass graft; Z79.01 Long term (current) use of anticoagulants; F41.8 Other specified anxiety disorders; K76.0 Fatty (change of) liver, not elsewhere classified; I48.91 Unspecified atrial fibrillation; I25.2 Old myocardial infarction; Z95.4 Presence of other heart-valve replacement; K22.70 Barrett's esophagus without dysplasia; I95.9 Hypotension, unspecified; K75.9 Inflammatory liver disease, unspecified
CPT/HCPCS: 36415; 36430; 71045; 76705; 80047; 80048; 80053; 82947; 83735; 84450; 84460; 84484; 85014; 85018; 85025; 85610; 86850; 86900; 86901; 93005; 93010; 94640; 94760; 96365; 96366; 96368; 96375; 96376; 99285-25; C9113; J2405; J2704; J3010; J3480; J7030; J7060; J7120; P9059

== ENCOUNTER 2019-04-18 18:50 | Inpatient (IN) | payer OTHER ==
[~2019-04-18] VITALS: Ht 175.3 cm; Wt 84.5 kg
[~2019-04-18 18:50] MED LIST changes: +WARF3 PO
[2019-04-18 19:46] LABS: BASOPHILS ABSOLUTE AUTO 0.07 K/mm3 (0.00-0.23); BASOPHILS PERCENT AUTO 0 % (0-2); EOSINOPHILS ABSOLUTE AUTO 0.08 K/mm3 (0.00-0.68); EOSINOPHILS PERCENT AUTO 1 % (0-6); Hematocrit 50.2 % (37.0-53.0); Hemoglobin 16.4 g/dL (13.5-17.5); IMMATURE GRAN ABSOLUTE AUTO 0.09 K/mm3 (0.00-0.10); IMMATURE GRAN PERCENT AUTO 1 % (0-1); LYMPHOCYTES ABSOLUTE AUTO 1.15 K/mm3 (0.84-5.20); LYMPHOCYTES PERCENT AUTO 7 % (21-46); MONOCYTES PERCENT AUTO 7 % (4-13); Mean Corpuscular HGB 28.7 pg (26.0-34.0); Mean Corpuscular HGB Conc 32.7 g/dL (31.5-36.5); Mean Corpuscular Volume 88 fL (80-100); Mean Platelet Volume 10.1 fL (9.1-12.4); NEUTROPHILS ABSOLUTE AUTO 14.29 K/mm3 (1.96-9.15); NEUTROPHILS PERCENT AUTO 85 % (41-73); Platelet Count 255 K/mm3 (150-400); RDW Coefficient Variation 16.7 % (11.7-14.2); RDW Standard Deviation 51.1 fL (35.1-46.3); Red Blood Cell Count 5.72 M/mm3 (4.30-5.90); White Blood Cell Count 16.88 K/mm3 (4.00-11.30)
[2019-04-18 20:06] LABS: Albumin, Blood 4.3 g/dL (3.4-5.0); Albumin/Globulin Ratio 1.1 (0.8-1.8); Bilirubin, Total 1.4 mg/dL (0.1-1.0); Bun/Creatinine Ratio 13.3 (12.0-20.0); Creatinine, Blood 1.58 mg/dL (0.60-1.20); Globulin, Blood 3.9 g/dL (2.2-4.0); Potassium, Blood 3.8 mmol/L (3.5-5.5); Total Protein, Blood 8.2 g/dL (6.4-8.2)
[2019-04-18 21:42] LABS: Source, Urine Clean Catch
[2019-04-18 21:44] LABS: International Normalized Ratio 1.93; Prothrombin Time Results 19.3 Sec (9.7-11.5)
[2019-04-18 21:48] LABS: Appearance, Urine Hazy (Clear); Blood, Urine 4+ (Neg); Color, Urine Amber (P-Yellow); Glucose Qualitative, Urine Neg (Neg); Ketones, Urine 2+ (Neg); Leukocyte Esterase, Urine 2+ (Neg); Nitrite, Urine Neg (Neg); Protein, Urine 3+ (Neg); Specific Gravity, Urine 1.025 (1.003-1.022); Urobilinogen, Urine 2+ (Normal)
[2019-04-18 22:02] LABS: Bilirubin, Urine 2+ (Neg)
[2019-04-18 22:03] LABS: Amorphous Light (0-Heavy); Bacteria Mod /hpf; Hyaline Casts 50-100 /lpf (0-2); Mucus Light (0-Heavy); Red Blood Cells, Urine 0-2 /hpf (0-2); Squamous Epithelial Cells Not Seen /hpf (Few)
[2019-04-18 23:10] LABS: Adenovirus F 40/41 Not Detected (NOT DETECT); Astrovirus Not Detected (NOT DETECT); Campylobacter Sp Not Detected (NOT DETECT); Cryptosporidium Not Detected (NOT DETECT); Cyclospora Cayetanensis Not Detected (NOT DETECT); E. Coli O157 Not Detected (NOT DETECT); Entamoeba Histolytica Not Detected (NOT DETECT); Enteroaggregative E. coli-EAEC Not Detected (NOT DETECT); Enteropathogenic E. coli-EPEC Not Detected (NOT DETECT); Enterotoxigenic E. coli-ETEC Not Detected (NOT DETECT); Giardia Lamblia Not Detected (NOT DETECT); Norovirus GI/GII Not Detected (NOT DETECT); Plesiomonas Shigelloides Not Detected (NOT DETECT); Rotavirus A Not Detected (NOT DETECT); Salmonella Sp Not Detected (NOT DETECT); Sapovirus Not Detected (NOT DETECT); Shiga Toxin-prod E. coli-STEC Not Detected (NOT DETECT); Shigella/Enteroin E. coli-EIEC Not Detected (NOT DETECT); Vibrio Cholerae Not Detected (NOT DETECT); Vibrio Sp Not Detected (NOT DETECT); Yersinia Enterocolitica Not Detected (NOT DETECT)
[2019-04-19] MEDS ORDERED: WARF6 (03:55)
[2019-04-19] MEDS ORDERED: ABAT250V (03:56)
--- NOTE | 2019-04-19 05:59 | NUR ---
04/19/19 0335 Patient arrived via stretcher to room 305 from the ED. Patient is alert and oriented. He is on a heparin gtt at 13 units per hour. Pt is also getting NS 1 liter wide open. Pt abdomen is rouded tender. He has occ shooting stabing pain all down the abdomen. Pt has had some nausia, did have emisis in the ED pe report. Pt has bruising rt upper back and down his flank from fall at home. Pt has thick calluses bottom of geri feet. Pt is vry pleasant. He was here recently. Oriented to room, assessments completed. Pt up to BR with SBA and help with IV pole. Pt did well. Abdomen hurts to move in and out of bed. Dr. Mark notified and pain meds changed. Pt medicated with fentanyl 25 mcg with more relief, still has occ shooting stabbing pains. Call light is in reach. Will continue to monitor.
[2019-04-19 08:37] LABS: BASOPHILS ABSOLUTE AUTO 0.03 K/mm3 (0.00-0.23); BASOPHILS PERCENT AUTO 0 % (0-2); EOSINOPHILS PERCENT AUTO 1 % (0-6); Hematocrit 39.4 % (37.0-53.0); Hemoglobin 12.5 g/dL (13.5-17.5); IMMATURE GRAN ABSOLUTE AUTO 0.06 K/mm3 (0.00-0.10); IMMATURE GRAN PERCENT AUTO 1 % (0-1); LYMPHOCYTES ABSOLUTE AUTO 0.97 K/mm3 (0.84-5.20); LYMPHOCYTES PERCENT AUTO 11 % (21-46); MONOCYTES ABSOLUTE AUTO 0.88 K/mm3 (0.16-1.47); MONOCYTES PERCENT AUTO 10 % (4-13); Mean Corpuscular HGB 28.8 pg (26.0-34.0); Mean Corpuscular HGB Conc 31.7 g/dL (31.5-36.5); NEUTROPHILS ABSOLUTE AUTO 6.58 K/mm3 (1.96-9.15); NEUTROPHILS PERCENT AUTO 76 % (41-73); Platelet Count 145 K/mm3 (150-400); RDW Coefficient Variation 16.2 % (11.7-14.2); RDW Standard Deviation 53.7 fL (35.1-46.3); Red Blood Cell Count 4.34 M/mm3 (4.30-5.90); White Blood Cell Count 8.62 K/mm3 (4.00-11.30)
[2019-04-19 08:45] LABS: Mean Corpuscular Volume 91 fL (80-100)
[2019-04-19 08:46] LABS: International Normalized Ratio 2.23
[2019-04-19 09:01] LABS: Anion Gap 10 mmol/L (6-16); Blood Urea Nitrogen 18 mg/dL (8-24); Bun/Creatinine Ratio 14.8 (12.0-20.0); CO2, Blood 21 mmol/L (21-32); Calcium, Blood 7.4 mg/dL (8.5-10.1); Chloride, Blood 106 mmol/L (98-108); Creatinine, Blood 1.22 mg/dL (0.60-1.20); Glomerular Filtration Rate >60 (60-); Glucose, Blood 76 mg/dL (70-99); Potassium, Blood 3.5 mmol/L (3.5-5.5); Sodium, Blood 137 mmol/L (136-145)
--- NOTE | 2019-04-19 18:04 | NUR ---
SHIFT SUMMARY PT UP TO BATHROOM WITH ONLY 1 BM TODAY. REPORTS ABDOMENAL PAIN THAT WORSENS WHEN HE MOVES BUT AFTER HIS BM HE IS STARTING TO FEEL BETTER. NORCO EFFECTIVE FOR MOST OF THE AFTERNOON TODAY. DENIED FEELING DIZZY OR LIGHTHEADED. HEPARIN RUNNING AND TITRATED ONCE TODAY.
--- NOTE | 2019-04-19 23:46 | NUR ---
pt rt ac iv has been oozing blood today. changed iv dressing iv was paent but continued to have blood moderate amt from IV site. Had to stop heparin gtt, notified pharmacy and APPT draw by lab within 20 minutes of stopping heparin gtt. Willis came and was able to establish IV access and restarted heparin gtt notified pharmacy, await APPT results.
--- NOTE | 2019-04-20 03:40 | NUR ---
PT has cardiac hx of heart valve replacement and cabg 6 years ago and cardiac cath 2019 with [place] per PT report. PT has been on heparin GTT and he continues on plavix and takes coumadin. He had issues with rt AC IV leaking blood so it was DC had to keep pressure at RT IV access site due to blood oozing. Restarted IV lt wrist. PT has positive cdiff on oral vanco. lab called with positive blood culture gram t cocci in clusters. Spoke with pharmacy, needs additional coverage because oral vanco doesnt tx systemically. Contacted DR HARVEY and pharmacy to manage IV rx to tx. PT has co pain in abd tx with norco 5/325 mg po and IV fentanyl 25 mcg with helpful effect. HX of recent upper GI bleed and said he had esophagal blockage. No current s/sx of GI bleed.
[2019-04-20 05:08] LABS: BASOPHILS ABSOLUTE AUTO 0.03 K/mm3 (0.00-0.23); BASOPHILS PERCENT AUTO 1 % (0-2); EOSINOPHILS ABSOLUTE AUTO 0.18 K/mm3 (0.00-0.68); EOSINOPHILS PERCENT AUTO 4 % (0-6); Hematocrit 32.7 % (37.0-53.0); Hemoglobin 10.6 g/dL (13.5-17.5); IMMATURE GRAN ABSOLUTE AUTO 0.02 K/mm3 (0.00-0.10); IMMATURE GRAN PERCENT AUTO 0 % (0-1); LYMPHOCYTES ABSOLUTE AUTO 0.68 K/mm3 (0.84-5.20); LYMPHOCYTES PERCENT AUTO 14 % (21-46); MONOCYTES ABSOLUTE AUTO 0.61 K/mm3 (0.16-1.47); MONOCYTES PERCENT AUTO 13 % (4-13); Mean Corpuscular HGB 29.5 pg (26.0-34.0); Mean Corpuscular HGB Conc 32.4 g/dL (31.5-36.5); Mean Corpuscular Volume 91 fL (80-100); Mean Platelet Volume 10.8 fL (9.1-12.4); NEUTROPHILS ABSOLUTE AUTO 3.35 K/mm3 (1.96-9.15); NEUTROPHILS PERCENT AUTO 69 % (41-73); Platelet Count 112 K/mm3 (150-400); RDW Coefficient Variation 16.4 % (11.7-14.2); Red Blood Cell Count 3.59 M/mm3 (4.30-5.90); White Blood Cell Count 4.87 K/mm3 (4.00-11.30)
[2019-04-20 05:58] LABS: Alanine Aminotransfer (ALT/SGP 32 U/L (12-78); Albumin/Globulin Ratio 1.1 (0.8-1.8); Alk Phos 67 U/L (50-136); Anion Gap 10 mmol/L (6-16); Aspartate Aminotrans (AST/SGOT 25 U/L (12-37); Bilirubin, Total 0.7 mg/dL (0.1-1.0); Blood Urea Nitrogen 16 mg/dL (8-24); Bun/Creatinine Ratio 15.7 (12.0-20.0); CO2, Blood 23 mmol/L (21-32); Calcium, Blood 7.5 mg/dL (8.5-10.1); Chloride, Blood 104 mmol/L (98-108); Creatinine, Blood 1.02 mg/dL (0.60-1.20); Globulin, Blood 2.8 g/dL (2.2-4.0); Glomerular Filtration Rate >60 (60-); Glucose, Blood 257 mg/dL (70-99); Potassium, Blood 3.3 mmol/L (3.5-5.5); Sodium, Blood 137 mmol/L (136-145)
--- NOTE | 2019-04-20 06:03 | NUR ---
second IV placed under ultrasound PT has positive blood culture needs vancomycin per pharmacy, not compatabile with heparin
[2019-04-20 06:16] LABS: International Normalized Ratio 3.07; Prothrombin Time Results 29.4 Sec (9.7-11.5)
[2019-04-20 07:00] LABS: Total Protein, Blood 5.8 g/dL (6.4-8.2)
--- NOTE | 2019-04-20 17:37 | NUR ---
SHIFT SUMMARY PT UP TO BATHROOM AND THEN COMMODE INDEPENDENTLY. REPORTED CHEST PAIN APPROX 1215. SPOKE WITH MD. SEE NEW ORDERS. AFTER GI COCKTAIL PT REPORTED THE PAIN STARTED TO GO AWAY AND IT STARTED TO FEEL MORE NUMB. ABLE TO SLEEP FOR A FEW HOURS THIS AFTERNOON. REPORTED PAIN WAS STILL THERE APPROX 1530 BUT WAS SIGNIFCANTLY IMPROVED. PT HAD TAKEN A PAIN PILL APPROX 1/2 HOUR PRIOR TO PAIN STARTING AND THEN LAYED DOWN TO TAKE A NAP. PT FELT HE HAD REALLY BAD GASTRIC REFLUX. HAS HAD A CHANCE TO TAKE SEVERAL SMALL NAPS TODAY.
[2019-04-21 05:20] LABS: BASOPHILS ABSOLUTE AUTO 0.03 K/mm3 (0.00-0.23); BASOPHILS PERCENT AUTO 1 % (0-2); EOSINOPHILS ABSOLUTE AUTO 0.21 K/mm3 (0.00-0.68); EOSINOPHILS PERCENT AUTO 4 % (0-6); Hemoglobin 10.7 g/dL (13.5-17.5); IMMATURE GRAN ABSOLUTE AUTO 0.01 K/mm3 (0.00-0.10); IMMATURE GRAN PERCENT AUTO 0 % (0-1); LYMPHOCYTES ABSOLUTE AUTO 0.65 K/mm3 (0.84-5.20); LYMPHOCYTES PERCENT AUTO 12 % (21-46); MONOCYTES ABSOLUTE AUTO 0.61 K/mm3 (0.16-1.47); MONOCYTES PERCENT AUTO 11 % (4-13); Mean Corpuscular HGB 28.6 pg (26.0-34.0); Mean Corpuscular HGB Conc 32.4 g/dL (31.5-36.5); Mean Platelet Volume 10.5 fL (9.1-12.4); NEUTROPHILS ABSOLUTE AUTO 4.02 K/mm3 (1.96-9.15); NEUTROPHILS PERCENT AUTO 73 % (41-73); Platelet Count 118 K/mm3 (150-400); RDW Coefficient Variation 16.4 % (11.7-14.2); RDW Standard Deviation 52.7 fL (35.1-46.3); Red Blood Cell Count 3.74 M/mm3 (4.30-5.90); White Blood Cell Count 5.53 K/mm3 (4.00-11.30)
[2019-04-21 05:21] LABS: Mean Corpuscular Volume 88 fL (80-100)
[2019-04-21 05:32] LABS: International Normalized Ratio 2.29; Prothrombin Time Results 22.5 Sec (9.7-11.5)
[2019-04-21 05:38] LABS: Anion Gap 7 mmol/L (6-16); Blood Urea Nitrogen 12 mg/dL (8-24); Bun/Creatinine Ratio 11.8 (12.0-20.0); CO2, Blood 23 mmol/L (21-32); Calcium, Blood 8.3 mg/dL (8.5-10.1); Chloride, Blood 111 mmol/L (98-108); Creatinine, Blood 1.02 mg/dL (0.60-1.20); Glomerular Filtration Rate >60 (60-); Glucose, Blood 93 mg/dL (70-99); Potassium, Blood 3.8 mmol/L (3.5-5.5); Sodium, Blood 141 mmol/L (136-145)
--- NOTE | 2019-04-21 06:12 | NUR ---
59 year old Male who appears much older than actual age continues with acute abd pain that is sharp and shooting or cramping in nature. He continues on iv vanco Q 12 hours for positive blood culture x 1. Continues to hace intermittant loose stool decreased from yesterday,. Tolerated ensure and yogurt without nausea. PT has hx of mitral valve replacement and is on coumadin. No active bleeding noted. PT has hx of cardiac stent placed September 2018 after [place]. HX of cabg 6 years ago when he had mitral valve replaced. Medicated several times with norco 5/325 mg tab 1 and fentanyl 25 mcg with helpful effect. using kpad for abd pain .
--- NOTE | 2019-04-21 11:20 | NUR ---
Initial palliative care consult: Pieter is a 59 year old gentleman who was admitted on 04/19/19 for sepsis and c-diff colitis. He has a history of peptic stricture with dilation, pyloric ulcer, mechanical mitral valve with chronic anticoagulation, cardiomyopathy, a-fib, CAD, HTN, COPD, chronic pancreatitis, depression. He reports that he had c-diff about two years ago. Pieetr lives alone with his dog in a trailer in a [place] community. He reports that it is getting more and more difficult to care for himself. He states he doesn't clean very much and making meals for one person is difficult. He reports his diet is mostly microwavable foods and soups. He takes coumadin and is aware of the dietary restrictions re: vegetables containing vitamin K. He states he knows his diet isn't very good. Reviewed dietary concerns for CHF and coumadin. Discussed importance of limiting sodium intake and consistent levels of vitamin K in this diet. He declines, meeting with a sql database developer. He states "I know I just need to eat better." He drives and is able to perform his personal ADLs without assistance. He does state that sometimes "I over do it," and then he needs to have rest periods because he will become SOB with exertion. He has neighbors who help him out on occasion. They are currently taking care of his dog while he is hospitalized. He is interested in moving into an assisted living facility in the future. He reports that CM worked with him during the last admission to help him gather information re: community resources. He has not yet been in contact with Aging people and disabilities to inquire about assistance either in his home with caregivers vs. an assisted living facility. His only source of income is social security at this time. Spoke with Esther in care managment and she states she will follow up with pt re: questions he has about community resources. He confirmed his POLST form that was originally filled out in December of 2016. He continues to maintain his wishes to be a full code with full treatment at this time. He did say that he would not want snf life support. Inquired about AD. He states his sister, Jazzy Garcias, is who he has designated as his alternative health care decision maker. He has filled out an AD in the past, however he is unsure of where it is and would like to put a new one together. Offered to sit with him and fill out a new one. He declined, he said he would like to fill it out when his sister is present. Encouraged him that once he fills out the new AD to get copies to his sister, his PCP and to the hospital for the EMR. He reports abd pains that are random. He cannot say that the pains preceed a BM. He does report that the frequencey of his abd pains has decreased. Number of BMs has also decreased. He denies nausea. He reports an episode yesterday of acid reflux which slowly improved with medication that was given. Reports that he eats small meals as large meals cause stomach upset. He states he has a history of stomach ulcers. No SOB at rest currently. He does c/o SOB with exertion at times. No edema or CP. Ringing in ears which is chronic for him. Slight dizziness when first getting OOB, however he reports once he sits on the edge of the bed for a short time the dizziness goes away. Spoke with Dr. Olivares and reviewed pt's POC. Pt will likely be discharged home tomorrow if he continues to improve. Updated pt's bedside nurse. PC will continue to follow prn for symptom management and disease/diet education.
[2019-04-21 11:45] LABS: Vancomycin, Trough 22.9 ug/mL (5.0-10.0)
--- NOTE | 2019-04-21 18:38 | NUR ---
SHIFT SUMMARY PLEASANT. SBA IN ROOM. OX4. C/O FREQUENT ABDOMINAL PAIN. HX OF HEART VALVE REPLACEMENT, CABG. COUMADIN AND PLAVIX THERAPY. ESOPHAGEAL STRICTURE. +BLOOD CULTURES. CDIFF +.
--- NOTE | 2019-04-22 02:02 | NUR ---
DR Ness updated on need to give PT IV fent 25 mcg Q 4 hours prn for acute abd pain he declined to use more tylenol to tx pain and DR RX oxycodone 5 to 10 mg Q 4 hrs prn. Pain has been poorly controlled on one norco 5/325 mg one. PT has minimal loose stool with positive cdiff neg toxin. extensive GI hx with ulcers and reported upper GI blockage 2 or 3 years ago that required repeated endoscopic dialations to resolve. PT CO gen weakness, hx of falls at home including recently. On coumadin and plavix without s/sx of active GI bleed. PT reports he did have active upper GI bleed within last month and was hospitalized for that. Pallative care is working with PT on safe DC plan.
[2019-04-22 04:47] LABS: BASOPHILS ABSOLUTE AUTO 0.02 K/mm3 (0.00-0.23); BASOPHILS PERCENT AUTO 0 % (0-2); EOSINOPHILS ABSOLUTE AUTO 0.18 K/mm3 (0.00-0.68); EOSINOPHILS PERCENT AUTO 4 % (0-6); Hematocrit 32.8 % (37.0-53.0); Hemoglobin 10.7 g/dL (13.5-17.5); IMMATURE GRAN ABSOLUTE AUTO 0.01 K/mm3 (0.00-0.10); IMMATURE GRAN PERCENT AUTO 0 % (0-1); LYMPHOCYTES ABSOLUTE AUTO 0.51 K/mm3 (0.84-5.20); LYMPHOCYTES PERCENT AUTO 11 % (21-46); MONOCYTES ABSOLUTE AUTO 0.61 K/mm3 (0.16-1.47); MONOCYTES PERCENT AUTO 13 % (4-13); Mean Corpuscular HGB 28.8 pg (26.0-34.0); Mean Corpuscular HGB Conc 32.6 g/dL (31.5-36.5); Mean Corpuscular Volume 88 fL (80-100); Mean Platelet Volume 10.9 fL (9.1-12.4); NEUTROPHILS ABSOLUTE AUTO 3.35 K/mm3 (1.96-9.15); NEUTROPHILS PERCENT AUTO 72 % (41-73); Platelet Count 107 K/mm3 (150-400); RDW Coefficient Variation 16.4 % (11.7-14.2); Red Blood Cell Count 3.72 M/mm3 (4.30-5.90); White Blood Cell Count 4.68 K/mm3 (4.00-11.30)
[2019-04-22 05:01] LABS: International Normalized Ratio 1.81; Prothrombin Time Results 18.2 Sec (9.7-11.5)
[2019-04-22 05:07] LABS: Anion Gap 5 mmol/L (6-16); Blood Urea Nitrogen 12 mg/dL (8-24); Bun/Creatinine Ratio 11.1 (12.0-20.0); CO2, Blood 27 mmol/L (21-32); Calcium, Blood 8.4 mg/dL (8.5-10.1); Chloride, Blood 107 mmol/L (98-108); Creatinine, Blood 1.08 mg/dL (0.60-1.20); Glomerular Filtration Rate >60 (60-); Glucose, Blood 115 mg/dL (70-99); Potassium, Blood 3.7 mmol/L (3.5-5.5); Sodium, Blood 139 mmol/L (136-145)
--- NOTE | 2019-04-22 06:22 | NUR ---
PT continues on antibiotics to treat cdiff colitis and vancomycin was stopped and flagyl started. Continues with abd tenderness and adb crampting and pain. Started oxycodone 10 mg po Q 4 hours. Tolerated diet takes ensure and yougurts through night.
--- NOTE | 2019-04-22 18:34 | NUR ---
SHIFT SUMMARY ELVIA COMPLAINED OF ABDOMINAL PAIN THIS SHIFT FOR WHICH OXY WORKED WELL. HAD 2 BM THIS SHIFT. INDEP TO BSC, DECENT APPETITE, TOOK MEDS PRESCRIBED. PLEASANT AND COOPERATIVE. CALL LIGHT IN REACH, WCTM
--- NOTE | 2019-04-23 04:02 | NUR ---
04/23/19 0400 AWAKE AND WATCHING TV. MEDICATED FOR PAIN EARLIER PT STATES HE IS FEELING BETTER TONIGHT THAN PRIOR DAYS. SO FAR ONLY HAD ONE STOOL THIS SHIFT. VITALS STABLE.
[2019-04-23 04:23] LABS: BASOPHILS ABSOLUTE AUTO 0.02 K/mm3 (0.00-0.23); BASOPHILS PERCENT AUTO 1 % (0-2); EOSINOPHILS ABSOLUTE AUTO 0.17 K/mm3 (0.00-0.68); EOSINOPHILS PERCENT AUTO 4 % (0-6); Hematocrit 32.8 % (37.0-53.0); Hemoglobin 10.8 g/dL (13.5-17.5); IMMATURE GRAN ABSOLUTE AUTO 0.02 K/mm3 (0.00-0.10); IMMATURE GRAN PERCENT AUTO 1 % (0-1); LYMPHOCYTES ABSOLUTE AUTO 0.48 K/mm3 (0.84-5.20); LYMPHOCYTES PERCENT AUTO 11 % (21-46); MONOCYTES ABSOLUTE AUTO 0.86 K/mm3 (0.16-1.47); MONOCYTES PERCENT AUTO 20 % (4-13); Mean Corpuscular HGB 29.5 pg (26.0-34.0); Mean Corpuscular HGB Conc 32.9 g/dL (31.5-36.5); Mean Corpuscular Volume 90 fL (80-100); Mean Platelet Volume 10.9 fL (9.1-12.4); NEUTROPHILS ABSOLUTE AUTO 2.84 K/mm3 (1.96-9.15); NEUTROPHILS PERCENT AUTO 65 % (41-73); Platelet Count 118 K/mm3 (150-400); RDW Coefficient Variation 16.3 % (11.7-14.2); RDW Standard Deviation 53.9 fL (35.1-46.3); Red Blood Cell Count 3.66 M/mm3 (4.30-5.90); White Blood Cell Count 4.39 K/mm3 (4.00-11.30)
[2019-04-23 04:37] LABS: International Normalized Ratio 1.67; Prothrombin Time Results 16.9 Sec (9.7-11.5)
[2019-04-23 04:51] LABS: Anion Gap 6 mmol/L (6-16); Blood Urea Nitrogen 17 mg/dL (8-24); Bun/Creatinine Ratio 14.2 (12.0-20.0); CO2, Blood 28 mmol/L (21-32); Calcium, Blood 8.3 mg/dL (8.5-10.1); Chloride, Blood 105 mmol/L (98-108); Glomerular Filtration Rate >60 (60-); Glucose, Blood 93 mg/dL (70-99); Potassium, Blood 3.7 mmol/L (3.5-5.5); Sodium, Blood 139 mmol/L (136-145)
[2019-04-23] MEDS ORDERED: ACET325 PO (12:09)
[2019-04-23] MEDS ORDERED: ENOX100I SC (12:12)
[2019-04-23] MEDS ORDERED: CULTURELLE1 EACH PO (12:13)
[2019-04-23] MEDS ORDERED: LEVO750 PO (12:14)
[2019-04-23] MEDS ORDERED: OXYC5 PO (12:15)
[2019-04-23] MEDS ORDERED: METR500 PO (12:15)
[2019-04-23] MEDS ORDERED: FIRVANQ50 MG/1 ML PO (12:19)
--- NOTE | 2019-04-23 15:54 | NUR ---
DISCHARGE NOTE- PT ALERT AND ORIENTED INDEPENDENT IN THE ROOM. PT WAS DISCHARGED HOME, VERBAL AND WRITTEN DISCHARGE INSTRUCTIONS WERE PROVIDED AND PT ACKNOWLEDGED UNDERSTANDING OF THEM. PT WAS PROVIDED WRITTEN EDUCATION WELL. MEDICATIONS FAXED TO [facility], PT RECIEVED FIRST DOSE OF LOVENOX PRIOR TO DISCHARGE AND IS AWARE OF THE DAILY ORDER. PT RECIEVED HARD COPY SCRIPTS FOR OXYCODONE AND PT/INR LAB DRAWS ON 04-26 AND 04-28. PT IS AWARE THESE LABS NEED TO BE DONE. PT WAS EAGER TO GET OUT OF THE HOSPITAL AND HOME. IV DC'D PRIOR TO DISCHARGE. NO FURTHER QUESTIONS AT THE TIME OF DISCHARGE. CONTACT INFO PROVIDED SHOULD QUESTIONS ARRISE LATER TONIGHT. PT WAS ESCORTED OUT VIA W/C BY THE RADAR SIGNAL PROCESSING ENGINEER WHERE HIS BROTHER WAS GOING TO PICK HIM UP.
== END 2019-04-23 14:14 | disposition home or self-care (01) | DRG 872 ==
LOC: ER 18:50 → MEDS 04-19 03:03
PROVIDERS: Emergency Medicine; Family Medicine; Pharmacist; Physician Assistant; ADMIT Hospitalist
DX: A41.4 Sepsis due to anaerobes (principal); I42.2 Other hypertrophic cardiomyopathy; N17.9 Acute kidney failure, unspecified; A04.72 Enterocolitis due to Clostridium difficile, not specified as recurrent; N39.0 Urinary tract infection, site not specified; F32.9 Major depressive disorder, single episode, unspecified; R65.20 Severe sepsis without septic shock; Z79.01 Long term (current) use of anticoagulants; I48.0 Paroxysmal atrial fibrillation; I25.10 Atherosclerotic heart disease of native coronary artery without angina pectoris; Z95.1 Presence of aortocoronary bypass graft; J44.9 Chronic obstructive pulmonary disease, unspecified; K76.0 Fatty (change of) liver, not elsewhere classified; Z87.891 Personal history of nicotine dependence; B96.20 Unspecified Escherichia coli [E. coli] as the cause of diseases classified elsewhere
CPT/HCPCS: 0097U; 36415; 71045; 74177; 80048; 80053; 80202; 81001; 82272; 83605; 83690; 84484; 85025; 85610; 85730; 87040; 87077; 87086; 87186; 87324; 93005; 93010; 94640; 94660; 94760; 96361; 96365; 96375; 99285-25; A9270; A9270-GY; J1644; J1650; J1956; J2405; J3010; J3370; J7030; J7050; Q9967

== ENCOUNTER 2019-06-23 22:29 | Emergency (ER) | payer OTHER ==
[~2019-06-23] VITALS: Ht 175.3 cm; Wt 81.7 kg
[~2019-06-23 22:29] MED LIST changes: +ABAT250V; +CULTURELLE1 EACH PO; +FIRVANQ50 MG/1 ML PO; +LEVO750 PO; +METR500 PO; +WARF6
== END 2019-06-24 00:50 | disposition home or self-care (01) ==
LOC: ER 22:29
DX: S09.90XA Unspecified injury of head, initial encounter (principal); S80.01XA Contusion of right knee, initial encounter; W01.0XXA Fall on same level from slipping, tripping and stumbling without subsequent striking against object, initial encounter
CPT/HCPCS: 70450; 99283-25

== ENCOUNTER 2019-08-16 17:56 | Observation (INO) | payer OTHER ==
[~2019-08-16] VITALS: Ht 175.3 cm; Wt 81.7 kg
[~2019-08-16 17:56] MED LIST changes: -Amiodarone HCl200 MG PO; -CARV25 PO; -CLOP75 PO; -WARF6
[2019-08-16 18:56] LABS: BASOPHILS ABSOLUTE AUTO 0.06 K/mm3 (0.00-0.23); BASOPHILS PERCENT AUTO 1 % (0-2); EOSINOPHILS ABSOLUTE AUTO 0.02 K/mm3 (0.00-0.68); EOSINOPHILS PERCENT AUTO 0 % (0-6); Hemoglobin 15.4 g/dL (13.5-17.5); IMMATURE GRAN ABSOLUTE AUTO 0.04 K/mm3 (0.00-0.10); IMMATURE GRAN PERCENT AUTO 0 % (0-1); LYMPHOCYTES ABSOLUTE AUTO 0.85 K/mm3 (0.84-5.20); LYMPHOCYTES PERCENT AUTO 10 % (21-46); MONOCYTES ABSOLUTE AUTO 0.97 K/mm3 (0.16-1.47); MONOCYTES PERCENT AUTO 11 % (4-13); Mean Corpuscular HGB 28.1 pg (26.0-34.0); Mean Corpuscular HGB Conc 32.8 g/dL (31.5-36.5); Mean Corpuscular Volume 86 fL (80-100); Mean Platelet Volume 9.6 fL (9.1-12.4); NEUTROPHILS ABSOLUTE AUTO 6.95 K/mm3 (1.96-9.15); NEUTROPHILS PERCENT AUTO 78 % (41-73); Platelet Count 258 K/mm3 (150-400); RDW Coefficient Variation 16.5 % (11.7-14.2); RDW Standard Deviation 51.8 fL (35.1-46.3); Red Blood Cell Count 5.48 M/mm3 (4.30-5.90); White Blood Cell Count 8.89 K/mm3 (4.00-11.30)
[2019-08-16 19:09] LABS: Alanine Aminotransfer (ALT/SGP 76 U/L (12-78); Albumin, Blood 4.3 g/dL (3.4-5.0); Albumin/Globulin Ratio 1.1 (0.8-1.8); Alk Phos 100 U/L (50-136); Anion Gap 8 mmol/L (6-16); Aspartate Aminotrans (AST/SGOT 88 U/L (12-37); Bilirubin, Total 1.2 mg/dL (0.1-1.0); Blood Urea Nitrogen 15 mg/dL (8-24); Bun/Creatinine Ratio 15.4 (12.0-20.0); CO2, Blood 25 mmol/L (21-32); Calcium, Blood 9.3 mg/dL (8.5-10.1); Chloride, Blood 103 mmol/L (98-108); Creatinine, Blood 0.97 mg/dL (0.60-1.20); Globulin, Blood 3.8 g/dL (2.2-4.0); Glomerular Filtration Rate >60 (60-); Glucose, Blood 110 mg/dL (70-99); Potassium, Blood 3.9 mmol/L (3.5-5.5); Sodium, Blood 136 mmol/L (136-145); Total Protein, Blood 8.1 g/dL (6.4-8.2); Troponin I <0.015 ng/mL (0.000-0.040)
[2019-08-16 19:58] LABS: International Normalized Ratio 1.55; Prothrombin Time Results 16.2 Sec (9.7-11.5)
[2019-08-16] MEDS ORDERED: ATOR40TA PO (20:30)
[2019-08-16] MEDS ORDERED: WARF4 PO (20:30)
[2019-08-16] MEDS ORDERED: OMEP20ER PO (20:30)
[2019-08-16] MEDS ORDERED: ESCI10 PO (20:32)
[2019-08-16] MEDS ORDERED: LAMO25 PO (20:32)
[2019-08-16] MEDS ORDERED: LISI20 PO (20:33)
[2019-08-16] MEDS ORDERED: CLOP75 PO (20:34)
[2019-08-16] MEDS ORDERED: ALBU90OI INH (20:34)
[2019-08-16] MEDS ORDERED: Amiodarone HCl200 MG PO (20:34)
[2019-08-16] MEDS ORDERED: CARV25 PO (20:35)
[2019-08-16] MEDS ORDERED: PRAZ1 PO (20:36)
[2019-08-16] MEDS ORDERED: BENZ100A PO (20:38)
[2019-08-17 02:34] LABS: BASOPHILS ABSOLUTE AUTO 0.04 K/mm3 (0.00-0.23); BASOPHILS PERCENT AUTO 1 % (0-2); EOSINOPHILS ABSOLUTE AUTO 0.01 K/mm3 (0.00-0.68); EOSINOPHILS PERCENT AUTO 0 % (0-6); Hematocrit 41.3 % (37.0-53.0); Hemoglobin 13.7 g/dL (13.5-17.5); IMMATURE GRAN ABSOLUTE AUTO 0.01 K/mm3 (0.00-0.10); IMMATURE GRAN PERCENT AUTO 0 % (0-1); LYMPHOCYTES ABSOLUTE AUTO 0.62 K/mm3 (0.84-5.20); LYMPHOCYTES PERCENT AUTO 9 % (21-46); MONOCYTES ABSOLUTE AUTO 0.85 K/mm3 (0.16-1.47); MONOCYTES PERCENT AUTO 12 % (4-13); Mean Corpuscular HGB 28.5 pg (26.0-34.0); Mean Corpuscular HGB Conc 33.2 g/dL (31.5-36.5); Mean Corpuscular Volume 86 fL (80-100); Mean Platelet Volume 9.5 fL (9.1-12.4); NEUTROPHILS PERCENT AUTO 79 % (41-73); Platelet Count 187 K/mm3 (150-400); RDW Coefficient Variation 16.1 % (11.7-14.2); RDW Standard Deviation 50.6 fL (35.1-46.3); Red Blood Cell Count 4.81 M/mm3 (4.30-5.90); White Blood Cell Count 7.13 K/mm3 (4.00-11.30)
[2019-08-17 02:54] LABS: Alanine Aminotransfer (ALT/SGP 55 U/L (12-78); Albumin, Blood 3.4 g/dL (3.4-5.0); Alk Phos 79 U/L (50-136); Anion Gap 6 mmol/L (6-16); Aspartate Aminotrans (AST/SGOT 55 U/L (12-37); Blood Urea Nitrogen 12 mg/dL (8-24); Bun/Creatinine Ratio 12.8 (12.0-20.0); CO2, Blood 28 mmol/L (21-32); Chloride, Blood 106 mmol/L (98-108); Creatinine, Blood 0.94 mg/dL (0.60-1.20); Globulin, Blood 3.3 g/dL (2.2-4.0); Glomerular Filtration Rate >60 (60-); Glucose, Blood 105 mg/dL (70-99); Potassium, Blood 3.9 mmol/L (3.5-5.5); Sodium, Blood 140 mmol/L (136-145); Total Protein, Blood 6.7 g/dL (6.4-8.2); Troponin I <0.015 ng/mL (0.000-0.040)
[2019-08-17 03:08] LABS: International Normalized Ratio 1.82; Prothrombin Time Results 18.8 Sec (9.7-11.5)
--- NOTE | 2019-08-17 09:55 | NUR ---
PT ARRIVED THE UNIT AT APPROXIMATELY 0915. PT HAD JUST VOMITED PRIOR TO ARRIVAL TO THE UNIT. HIS SKIN IS CLAMMY. PT REPORTS SOME NAUSEA AT THIS POINT. HE IS ALERT AND ORIENTED.
--- NOTE | 2019-08-17 09:57 | NUR ---
CHEST PAIN PT STARTED TO COMPLAIN OF CHEST PAIN 01/11 AT 0937. HE WAS GIVEN 1 NITRO AT 0940 WHICH HE REPORTS DECREASED CHEST PAIN TO 3/10. HE DECLINED ANOTHER DOSE OF NITRO AT THIS TIME. DR. RODRIGUES NOTIFIED THAT PT HAD BEEN TREATED WITH NITRO FOR CHEST PAIN AND HAS ARRIVED TO ROOM 211. VSS. HR NSR AT 80 PER ELIZABETH MIDDLETON SLAB GRINDER.
--- NOTE | 2019-08-17 10:09 | NUR ---
Echocardiogram completed.
[2019-08-17] MEDS ORDERED: BENZ100A PO (11:19)
[2019-08-17] MEDS ORDERED: ESCI20 PO (11:21)
[2019-08-17] MEDS ORDERED: LAMO100 PO (11:22)
--- NOTE | 2019-08-17 11:38 | NUR ---
UPON REVIEWING MEDICATION WITH PHARMACY MANY OF PT'S HOME MEDICATIONS INCLUDING WARFARIND AND CORDARONE HAVE NOT BEEN FILLED SINCE FEBRUARY. WILL NOTIFY DR. RODRIGUES AND CONTINUE TO MONITOR.
[2019-08-17] MEDS ORDERED: ENOXAPARIN100 MG/1 M SC (17:37)
--- NOTE | 2019-08-17 18:20 | NUR ---
DISCHARGE PT PROVIDED WITH WRITTEN AND VERBAL DISCHARGE INSTRUCTIONS. HE REPORTED UNDERSTANDING. PT EDUCATED TO FOLLOW UP WITH PRIMARY CARE DOCTOR. PT AMBULATED OUT WITHOUT ASSISTANCE.
== END 2019-08-17 18:14 | disposition home or self-care (01) ==
LOC: ER 17:56 → SURS 17:57 → ERHOLD 17:57 → SURS 17:58 → ER 21:44 → ERHOLD 21:44 → SURS 08-17 09:13
PROVIDERS: Emergency Medicine; Nurse Practitioner Acute Care; Physician Assistant; ADMIT Hospitalist
DX: I48.91 Unspecified atrial fibrillation (principal); I10 Essential (primary) hypertension; J44.9 Chronic obstructive pulmonary disease, unspecified; K21.9 Gastro-esophageal reflux disease without esophagitis; R19.5 Other fecal abnormalities; F32.9 Major depressive disorder, single episode, unspecified; I25.10 Atherosclerotic heart disease of native coronary artery without angina pectoris; F41.9 Anxiety disorder, unspecified; Z91.14 Patient's other noncompliance with medication regimen; Z88.0 Allergy status to penicillin; Z88.2 Allergy status to sulfonamides; Z95.5 Presence of coronary angioplasty implant and graft; Z79.02 Long term (current) use of antithrombotics/antiplatelets; Z79.01 Long term (current) use of anticoagulants; Z79.899 Other long term (current) drug therapy; Z74.09 Other reduced mobility
CPT/HCPCS: 36415; 71045; 76705; 80053; 83690; 84484; 85025; 85610; 85730; 93005; 93010; 93306; 96361; 96365; 96366; 96375; 96376; 97161; 99285-25; A9270; A9270-GY; G0378; J1170; J1644; J1650; J2405; J3480; J7030

== ENCOUNTER 2019-09-04 09:23 | Emergency (ER) | payer OTHER ==
[~2019-09-04] VITALS: Ht 175.3 cm; Wt 82.5 kg
[~2019-09-04 09:23] MED LIST changes: +Amiodarone HCl200 MG PO; +BENZ100A PO; +CARV25 PO; +CLOP75 PO; +ENOXAPARIN100 MG/1 M SC; +ESCI10 PO; +LAMO25 PO; +PRAZ1 PO
--- NOTE | 2019-09-04 10:59 | NUR ---
CONSENT TO TREAT PATIENT GAVE LLUVIA FRANCES CONSENT TO TREAT DURING SHIFT [phone] ON 09/04/2019.
--- NOTE | 2019-09-04 11:09 | NUR ---
PATIENT INR DRAWN AT OUTPATIENT LAB. PER DR. CLARK, INR 10+. PATIENT BEING FOLLWED FOR ABNORMAL LAB VALUE.
== END 2019-09-04 12:25 | disposition home or self-care (01) ==
LOC: ER 09:23
DX: D68.32 Hemorrhagic disorder due to extrinsic circulating anticoagulants (principal); R04.0 Epistaxis; T45.515A Adverse effect of anticoagulants, initial encounter; J44.9 Chronic obstructive pulmonary disease, unspecified; I10 Essential (primary) hypertension; F32.9 Major depressive disorder, single episode, unspecified; K21.9 Gastro-esophageal reflux disease without esophagitis; Z79.899 Other long term (current) drug therapy; Z88.2 Allergy status to sulfonamides; Z88.0 Allergy status to penicillin
CPT/HCPCS: 96372; 99283-25; J3430

== ENCOUNTER 2019-11-24 14:58 | Observation (INO) | payer OTHER ==
[~2019-11-24] VITALS: Ht 175.3 cm; Wt 83.0 kg
[2019-11-24 15:53] LABS: BASOPHILS ABSOLUTE AUTO 0.04 K/mm3 (0.00-0.23); BASOPHILS PERCENT AUTO 1 % (0-2); EOSINOPHILS ABSOLUTE AUTO 0.02 K/mm3 (0.00-0.68); EOSINOPHILS PERCENT AUTO 0 % (0-6); Hematocrit 33.5 % (37.0-53.0); Hemoglobin 10.4 g/dL (13.5-17.5); IMMATURE GRAN ABSOLUTE AUTO 0.04 K/mm3 (0.00-0.10); IMMATURE GRAN PERCENT AUTO 1 % (0-1); LYMPHOCYTES ABSOLUTE AUTO 0.51 K/mm3 (0.84-5.20); LYMPHOCYTES PERCENT AUTO 7 % (21-46); MONOCYTES ABSOLUTE AUTO 0.66 K/mm3 (0.16-1.47); MONOCYTES PERCENT AUTO 9 % (4-13); Mean Corpuscular HGB 29.6 pg (26.0-34.0); Mean Corpuscular Volume 95 fL (80-100); NEUTROPHILS ABSOLUTE AUTO 6.33 K/mm3 (1.96-9.15); NEUTROPHILS PERCENT AUTO 83 % (41-73); Platelet Count 236 K/mm3 (150-400); RDW Coefficient Variation 18.6 % (11.7-14.2); RDW Standard Deviation 65.8 fL (35.1-46.3); Red Blood Cell Count 3.51 M/mm3 (4.30-5.90)
[2019-11-24 16:21] LABS: Alanine Aminotransfer (ALT/SGP 51 U/L (12-78); Albumin, Blood 3.8 g/dL (3.4-5.0); Albumin/Globulin Ratio 1.1 (0.8-1.8); Alk Phos 73 U/L (50-136); Anion Gap 16 mmol/L (6-16); Aspartate Aminotrans (AST/SGOT 63 U/L (12-37); Bilirubin, Total 0.6 mg/dL (0.1-1.0); Blood Urea Nitrogen 25 mg/dL (8-24); Bun/Creatinine Ratio 25.1 (12.0-20.0); CO2, Blood 18 mmol/L (21-32); Calcium, Blood 7.7 mg/dL (8.5-10.1); Chloride, Blood 111 mmol/L (98-108); Globulin, Blood 3.4 g/dL (2.2-4.0); Glomerular Filtration Rate >60 (60-); Glucose, Blood 85 mg/dL (70-99); Potassium, Blood 3.7 mmol/L (3.5-5.5); Sodium, Blood 145 mmol/L (136-145); Total Protein, Blood 7.2 g/dL (6.4-8.2); Troponin I <0.015 ng/mL (0.000-0.040)
[2019-11-24 16:31] LABS: Prothrombin Time Results >90.0 Sec (9.7-11.5)
[2019-11-24 16:32] LABS: International Normalized Ratio No Calc
[2019-11-24 21:08] LABS: Hematocrit 27.3 % (37.0-53.0)
[2019-11-24 21:13] LABS: Base Excess Venous 4.8 mmol/L; Bicarbonate Venous 28.6 mmol/L (24.0-30.0); PO2 Venous 64.4 mmHg (38-42); pH Blood Venous 7.52 (7.34-7.37)
[2019-11-25 03:30] LABS: BASOPHILS ABSOLUTE AUTO 0.01 K/mm3 (0.00-0.23); BASOPHILS PERCENT AUTO 0 % (0-2); EOSINOPHILS ABSOLUTE AUTO 0.01 K/mm3 (0.00-0.68); EOSINOPHILS PERCENT AUTO 0 % (0-6); Hematocrit 22.9 % (37.0-53.0); Hemoglobin 7.3 g/dL (13.5-17.5); IMMATURE GRAN ABSOLUTE AUTO 0.03 K/mm3 (0.00-0.10); IMMATURE GRAN PERCENT AUTO 1 % (0-1); LYMPHOCYTES ABSOLUTE AUTO 0.39 K/mm3 (0.84-5.20); LYMPHOCYTES PERCENT AUTO 8 % (21-46); MONOCYTES ABSOLUTE AUTO 0.63 K/mm3 (0.16-1.47); MONOCYTES PERCENT AUTO 13 % (4-13); Mean Corpuscular HGB 29.6 pg (26.0-34.0); Mean Corpuscular HGB Conc 31.9 g/dL (31.5-36.5); Mean Corpuscular Volume 93 fL (80-100); Mean Platelet Volume 10.3 fL (9.1-12.4); NEUTROPHILS ABSOLUTE AUTO 3.99 K/mm3 (1.96-9.15); NEUTROPHILS PERCENT AUTO 79 % (41-73); Platelet Count 142 K/mm3 (150-400); RDW Coefficient Variation 18.3 % (11.7-14.2); RDW Standard Deviation 62.4 fL (35.1-46.3); Red Blood Cell Count 2.47 M/mm3 (4.30-5.90); White Blood Cell Count 5.06 K/mm3 (4.00-11.30)
[2019-11-25 03:40] LABS: Hemoglobin 7.4 g/dL (13.5-17.5)
[2019-11-25 03:44] LABS: International Normalized Ratio 1.34
[2019-11-25 04:09] LABS: Alanine Aminotransfer (ALT/SGP 34 U/L (12-78); Albumin, Blood 3.1 g/dL (3.4-5.0); Albumin/Globulin Ratio 1.1 (0.8-1.8); Alk Phos 54 U/L (50-136); Anion Gap 5 mmol/L (6-16); Aspartate Aminotrans (AST/SGOT 35 U/L (12-37); Blood Urea Nitrogen 22 mg/dL (8-24); Bun/Creatinine Ratio 22.9 (12.0-20.0); CO2, Blood 30 mmol/L (21-32); Calcium, Blood 7.1 mg/dL (8.5-10.1); Chloride, Blood 106 mmol/L (98-108); Creatinine, Blood 0.96 mg/dL (0.60-1.20); Globulin, Blood 2.7 g/dL (2.2-4.0); Glomerular Filtration Rate >60 (60-); Glucose, Blood 145 mg/dL (70-99); Potassium, Blood 3.7 mmol/L (3.5-5.5); Sodium, Blood 141 mmol/L (136-145); Total Protein, Blood 5.8 g/dL (6.4-8.2)
[2019-11-25 04:16] LABS: Prothrombin Time Results 14.1 Sec (9.7-11.5)
--- NOTE | 2019-11-25 06:07 | NUR ---
SHIFT SUMMARY ASSUMED CARE OF PT AT 2215. PT IS A/OX4, DENIES N/T IN EXTREMITES. HEART SOUNDS REGULAR, TELE SHOWS SINUS @ 80, DENIES CP. LUNG SOUNDS CLEAR, DENIES SOB AT THIS TIME. PT WAS NEASEATED AND THREW UP CLEAR LIQUIDS, MEDICATED WITH ZOFRAN AND THEN PHENERGEN WHEN THAT DIDNT WORK. PT C/O WEAKNESS. PT ALSO C/O PAIN, PT STATED THAT TYLENOL DOESNT HELP, CALLED DOCTOR AND ORDERED IV MEDICATION. PT HAS LARGE BRUISES T/O HIS BODY. HEMOGLOBIN WAS 7.3 WITH MORNING LABS, HOSPITALIST NOTIFIED AND ORDERED 1 UNIT PRBC. PATIENT TOLERATING WELL. PT DID NOT GET TO SLEEP MUCH LAST NIGHT. CALL LIGHT IN REACH, BED IN LOWEST POSTION, WILL CONTINUE TO MONITOR UNTIL DAYSHIFT NURSE ARRIVES.
[2019-11-25 09:28] LABS: Hematocrit 28.1 % (37.0-53.0); Hemoglobin 9.1 g/dL (13.5-17.5)
--- NOTE | 2019-11-25 17:35 | NUR ---
PT ALERT AND ORIENTED X4. LUNG SOUNDS CLEAR, NO SOB/CP. PT WAS UNABLE TO TOLERATE FOOD TODAY, PT HAD ONE ENSURE, BUT PT VOMITED AFTER AWHILE. PT HAD A TWO EPISODES OF UNMEASURED EMESIS TODAY. PT C/O OF HEADACHE, NAUSEA, AND VOMITING, PT MEDICATED PER EMAR. PT WAS NOT ABLE TO PROVIDE STOOL SAMPLES FOR OCCULT GUAIAC. PT STARTED BACK ON WARFARIN PER DR'S ORDER. AFTER ONE UNIT OF BLOOD, PT H&H IS TRENDING UP. PT SINUS RHTYHM ON TELE AT 60'S. CALL LIGHT WITHIN REACH, AND BED IN LOWEST POSITION.
[2019-11-26 05:00] LABS: International Normalized Ratio 1.18; Prothrombin Time Results 12.5 Sec (9.7-11.5)
--- NOTE | 2019-11-26 05:07 | NUR ---
SHIFT SUMMARY ASSUMED CARE OF PT AT 1900. PT IS A/OX4, DENIES N/T IN EXTRMITES. HEART SOUNDS REGULAR, TELE SHOWS SINUS, DENIES CP. LUNG SOUNDS CLEAR, DENIES SOB. PT C/O PAIN AND NEAUSEA, MEDICATED PER EMAR. NO ACUTE EVENTS DURING THE NIGHT. PT SLEPT T/O THE NIGHT. CALL LIGHT IN REACH, BED IN LOWEST POSTION, WILL CONTINUE TO MONITOR UNTIL DAYSHIFT NURSE ARRIVES.
[2019-11-26 08:02] LABS: Hematocrit 26.7 % (37.0-53.0); Hemoglobin 8.6 g/dL (13.5-17.5)
[2019-11-26 08:12] LABS: Anion Gap 7 mmol/L (6-16); Blood Urea Nitrogen 17 mg/dL (8-24); Bun/Creatinine Ratio 17.3 (12.0-20.0); CO2, Blood 29 mmol/L (21-32); Calcium, Blood 7.2 mg/dL (8.5-10.1); Chloride, Blood 105 mmol/L (98-108); Creatinine, Blood 0.98 mg/dL (0.60-1.20); Glomerular Filtration Rate >60 (60-); Glucose, Blood 102 mg/dL (70-99); Potassium, Blood 3.6 mmol/L (3.5-5.5); Sodium, Blood 141 mmol/L (136-145)
--- NOTE | 2019-11-26 10:59 | NUR ---
PATIENT D/C'D TO HOME. NO NEW RX MEDICATIONS. DC INSTUCTIONS AND EDUCATIONS DISCUSSED WITH PATIENT AND COPY PROVIDED. PATIENT DENIES ANY FURTHER QUESTIONS OR CONCERNS. CARE MANAGERS TO CONTACT WEDNESDAY WITH FOLLOW UP APPT WITH DR. CAMARGO.
== END 2019-11-26 10:53 | disposition home or self-care (01) ==
LOC: ER 14:58 → MEDS 22:00
PROVIDERS: Internal Medicine; Nurse Practitioner Acute Care; Pharmacist; Physician Assistant; ADMIT Internal Medicine
DX: R79.1 Abnormal coagulation profile (principal); R04.0 Epistaxis; I48.91 Unspecified atrial fibrillation; G92 Toxic encephalopathy; D62 Acute posthemorrhagic anemia; R11.2 Nausea with vomiting, unspecified; R53.1 Weakness; I10 Essential (primary) hypertension; J44.9 Chronic obstructive pulmonary disease, unspecified; F32.9 Major depressive disorder, single episode, unspecified; F41.9 Anxiety disorder, unspecified; I25.10 Atherosclerotic heart disease of native coronary artery without angina pectoris; K21.9 Gastro-esophageal reflux disease without esophagitis; Z74.09 Other reduced mobility; Z95.2 Presence of prosthetic heart valve; Z95.5 Presence of coronary angioplasty implant and graft; Z88.0 Allergy status to penicillin; Z88.2 Allergy status to sulfonamides; Z79.01 Long term (current) use of anticoagulants; Z79.899 Other long term (current) drug therapy
CPT/HCPCS: 30903; 36415; 36430; 70450; 71045; 80048; 80053; 82803; 83735; 83880; 84443; 84484; 85014; 85018; 85025; 85610; 86850; 86900; 86901; 86923; 93005; 93010; 96365-59; 96375-59; 99285-25; A9270; A9270-GY; G0480; J2405; J2765; J3010; J3430; J3475; J7030; J7050; P9016; P9059

== ENCOUNTER 2020-02-10 14:39 | Emergency (ER) | payer OTHER ==
[~2020-02-10] VITALS: Ht 175.3 cm; Wt 77.1 kg
[2020-02-10] MEDS ORDERED: HYDR1TAB94 PO (15:39)
== END 2020-02-10 16:15 | disposition home or self-care (01) ==
LOC: ER 14:39
DX: S52.134A Nondisplaced fracture of neck of right radius, initial encounter for closed fracture (principal); I10 Essential (primary) hypertension; J44.9 Chronic obstructive pulmonary disease, unspecified; I48.91 Unspecified atrial fibrillation; I25.810 Atherosclerosis of coronary artery bypass graft(s) without angina pectoris; F32.9 Major depressive disorder, single episode, unspecified; K21.9 Gastro-esophageal reflux disease without esophagitis; Z88.2 Allergy status to sulfonamides; Z88.0 Allergy status to penicillin; Z79.01 Long term (current) use of anticoagulants; Z95.5 Presence of coronary angioplasty implant and graft; Z79.899 Other long term (current) drug therapy; W18.30XA Fall on same level, unspecified, initial encounter; Y93.K1 Activity, walking an animal; Y92.410 Unspecified street and highway as the place of occurrence of the external cause
CPT/HCPCS: 73080; 99283-25

== ENCOUNTER 2020-05-06 10:26 | Inpatient (IN) | payer OTHER ==
--- NOTE | 2020-05-06 11:16 | NUR ---
Patient gave this clinical nursing coordinator permission to obtain vascular access via peripheral IV.
[2020-05-06 11:44] LABS: Anion Gap 8 mmol/L (6-16); Blood Urea Nitrogen 16 mg/dL (8-24); Bun/Creatinine Ratio 16.2 (12.0-20.0); CO2, Blood 27 mmol/L (21-32); Calcium, Blood 9.3 mg/dL (8.5-10.1); Chloride, Blood 103 mmol/L (98-108); Creatinine, Blood 0.99 mg/dL (0.60-1.20); Glomerular Filtration Rate >60 (60-); Glucose, Blood 80 mg/dL (70-99); Magnesium, Blood 1.9 mg/dL (1.6-2.4); Potassium, Blood 3.9 mmol/L (3.5-5.5); Sodium, Blood 138 mmol/L (136-145)
[2020-05-06] MEDS ORDERED: DRON400T PO (14:49)
[2020-05-06] MEDS ORDERED: RANO500T PO (14:50)
--- NOTE | 2020-05-06 15:38 | NUR ---
Patient is lying in bed and alert. Patient immediately tells me about the reason for his hospitalization, about his struggles with depression and what some of the triggers are and about his resources and coping skills. I listen empathically and provide companionship, pastoral anger control counselor and prayer. Patient responds well and shows signs of an elevated mood. I will continuie to remain available to patient and family.
== END 2020-05-06 16:52 | disposition home or self-care (01) | DRG 310 ==
LOC: PCU 10:26
PROVIDERS: ADMIT Internal Medicine Cardiovascular Disease
DX: I48.91 Unspecified atrial fibrillation (principal); R94.31 Abnormal electrocardiogram [ECG] [EKG]; I25.10 Atherosclerotic heart disease of native coronary artery without angina pectoris; I25.2 Old myocardial infarction; I10 Essential (primary) hypertension; E78.5 Hyperlipidemia, unspecified; E26.09 Other primary hyperaldosteronism; G62.9 Polyneuropathy, unspecified; Z23 Encounter for immunization; Z88.0 Allergy status to penicillin; Z88.2 Allergy status to sulfonamides; Z79.899 Other long term (current) drug therapy; Z95.1 Presence of aortocoronary bypass graft; Z95.5 Presence of coronary angioplasty implant and graft; Z95.2 Presence of prosthetic heart valve; Z79.01 Long term (current) use of anticoagulants; Z87.74 Personal history of (corrected) congenital malformations of heart and circulatory system
CPT/HCPCS: 80048; 83735; 93005; 93010; Q2038

== ENCOUNTER 2020-08-22 10:16 | Inpatient (IN) | payer OTHER, SELFPAY ==
[~2020-08-22] VITALS: Ht 175.3 cm; Wt 81.4 kg
[~2020-08-22 10:16] MED LIST changes: +DRON400T PO; +RANO500T PO
[2020-08-22 11:07] LABS: BASOPHILS ABSOLUTE AUTO 0.08 K/mm3 (0.00-0.23); BASOPHILS PERCENT AUTO 1 % (0-2); EOSINOPHILS ABSOLUTE AUTO 0.06 K/mm3 (0.00-0.68); EOSINOPHILS PERCENT AUTO 1 % (0-6); Hematocrit 48.7 % (37.0-53.0); Hemoglobin 16.6 g/dL (13.5-17.5); IMMATURE GRAN ABSOLUTE AUTO 0.03 K/mm3 (0.00-0.10); IMMATURE GRAN PERCENT AUTO 0 % (0-1); LYMPHOCYTES ABSOLUTE AUTO 0.63 K/mm3 (0.84-5.20); LYMPHOCYTES PERCENT AUTO 6 % (21-46); MONOCYTES PERCENT AUTO 8 % (4-13); Mean Corpuscular HGB 30.2 pg (26.0-34.0); Mean Corpuscular HGB Conc 34.1 g/dL (31.5-36.5); Mean Corpuscular Volume 89 fL (80-100); Mean Platelet Volume 9.4 fL (9.1-12.4); NEUTROPHILS PERCENT AUTO 85 % (41-73); Platelet Count 275 K/mm3 (150-400); RDW Coefficient Variation 17.6 % (11.7-14.2)
[2020-08-22 11:38] LABS: Alanine Aminotransfer (ALT/SGP 114 U/L (12-78); Albumin, Blood 3.9 g/dL (3.4-5.0); Albumin/Globulin Ratio 0.8 (0.8-1.8); Alk Phos 100 U/L (50-136); Anion Gap 8 mmol/L (6-16); Aspartate Aminotrans (AST/SGOT 141 U/L (12-37); Bilirubin, Total 0.9 mg/dL (0.1-1.0); Blood Urea Nitrogen 19 mg/dL (8-24); Bun/Creatinine Ratio 23.3 (12.0-20.0); CO2, Blood 25 mmol/L (21-32); Calcium, Blood 8.8 mg/dL (8.5-10.1); Chloride, Blood 105 mmol/L (98-108); Creatinine, Blood 0.82 mg/dL (0.60-1.20); Globulin, Blood 4.6 g/dL (2.2-4.0); Glomerular Filtration Rate >60 (60-); Glucose, Blood 118 mg/dL (70-99); Potassium, Blood 4.2 mmol/L (3.5-5.5); Sodium, Blood 138 mmol/L (136-145); Total Protein, Blood 8.5 g/dL (6.4-8.2)
[2020-08-22] MEDS ORDERED: LOW DOSE ASPIRI81 M1 PO (12:15)
[2020-08-22] MEDS ORDERED: JANTOVEN2 MG PO (12:19)
[2020-08-22 15:34] LABS: International Normalized Ratio 1.96; Prothrombin Time Results 20.2 Sec (9.7-11.5)
[2020-08-22] MEDS ORDERED: Vitamin K100 MCG PO ×2 (15:39→15:40)
--- NOTE | 2020-08-22 17:47 | NUR ---
Shift Summary Received report from Travis LI-NELSY. Patient arrived to unit approx. 1525 via gurney. A/Ox4, pleasant and cooperative. C/O having 7 bouts of diarrhea with bright red blood yesterday and possibly having GI "tract" infection. Patient had a small bowel movement shortly after arrival to unit, formed and brown; no visible blood noted. Also c/o 9/10 abdominal pain, medicated per EMAR with good effect. Dr. Martines (Procurement Clerk) has been consulted by airline ticket agent Gabe and was at the bedside. Heparin drip initiated @ 13 u/kg/hr (21.1 mLs/hr), verified with NELSY Owen. Tele: SR [id number]. COVID swab completed. 1P SBA to BSC, c/o dizziness. Hx of recent fall at home r/t syncope, bed alarm on. WCTM and report to oncoming NELSY.
[2020-08-22 17:52] LABS: Influenza A, PCR NEGATIVE (NEGATIVE); Influenza B, PCR NEGATIVE (NEGATIVE); Resp Syncytial Virus, PCR NEGATIVE (NEGATIVE); SARS-Cov-2 (COVID-19) PCR, MMC NEGATIVE (NEGATIVE)
[2020-08-22 17:54] LABS: Hematocrit 46.9 % (37.0-53.0); Hemoglobin 15.4 g/dL (13.5-17.5)
[2020-08-23 00:53] LABS: Hematocrit 41.4 % (37.0-53.0); Hemoglobin 14.1 g/dL (13.5-17.5)
--- NOTE | 2020-08-23 04:32 | NUR ---
CRITICAL LAB LAB CALLED TO NOTIFY PT HAD CRITICAL LAB VALUE TROPONIN OF 1.46. THIS IS DOWN FROM PREVIOUS TROPONIN OF 2.850. CHARGE NURSE NOTIFIED. WILL CONTINUE TO MONITOR.
--- NOTE | 2020-08-23 05:53 | NUR ---
SHIFT SUMMARY PT A&OX4. SP02>92% ON RA. TELEMETRY READS SR, HR 70'S. PT C/O OF 4/10 CHEST PAIN WHICH PT STATES IS "MANAGEABLE". PT ALSO C/O OF 8/10 ABD PAIN, WHICH PT IS MEDICATED PER EMAR FOR. PT UP TO BSC W/ 1 PERSON ASSIST AND STOOD AT BEDSIDE W/ URINAL MULTIPLE TIMES THIS SHIFT. PT C/O OF SLIGHT LIGHTHEADEDNESS BUT NO DIZZINESS. HEPARIN INFUSING PER EMAR. FLUIDS INFUSING PER EMAR. PT IS NPO FOR PROCEDURE IN AM. PT WAS ABLE TO REST ABOUT 1/2 OF NIGHT. CALL LIGHT IN REACH.
[2020-08-23 07:33] LABS: Hematocrit 43.1 % (37.0-53.0); Hemoglobin 14.3 g/dL (13.5-17.5); Mean Corpuscular HGB 30.2 pg (26.0-34.0); Mean Corpuscular HGB Conc 33.2 g/dL (31.5-36.5); Mean Corpuscular Volume 91 fL (80-100); Mean Platelet Volume 10.2 fL (9.1-12.4); Platelet Count 167 K/mm3 (150-400); RDW Coefficient Variation 17.8 % (11.7-14.2); RDW Standard Deviation 59.7 fL (35.1-46.3); Red Blood Cell Count 4.73 M/mm3 (4.30-5.90); White Blood Cell Count 5.95 K/mm3 (4.00-11.30)
[2020-08-23 07:49] LABS: Anion Gap 9 mmol/L (6-16); Blood Urea Nitrogen 18 mg/dL (8-24); Bun/Creatinine Ratio 21.6 (12.0-20.0); CO2, Blood 25 mmol/L (21-32); Calcium, Blood 7.9 mg/dL (8.5-10.1); Chloride, Blood 105 mmol/L (98-108); Creatinine, Blood 0.83 mg/dL (0.60-1.20); Glomerular Filtration Rate >60 (60-); Glucose, Blood 93 mg/dL (70-99); Magnesium, Blood 1.7 mg/dL (1.6-2.4); Potassium, Blood 3.7 mmol/L (3.5-5.5); Sodium, Blood 139 mmol/L (136-145)
[2020-08-23 07:51] LABS: International Normalized Ratio 1.6; Prothrombin Time Results 16.7 Sec (9.7-11.5)
--- NOTE | 2020-08-23 08:00 | NUR ---
pt laying in bed awake a/ox3, pleasant and cooperative with care, follows commands well, seems uptight, asked for pain meds for his abd. states his chest pain is tightness about a 4/10, but his abd is 9/10, gave 25mcg fentanyl with good relief, lungs are clear t/o, resp even and unlabored, no cough noted, hrr, can auscultate valve clicking, tele in place running sr per monitor, see strip, no edema noted, ppp+1, cap refill <3sec, vs stable, afebrile, iv sites are clear and patent, infusing saline and heperin, btx4, abd flat soft tender, voids without diff, skin c/w/d, maew, pinky, call light in reach.
--- NOTE | 2020-08-23 12:16 | NUR ---
pt became upset over criminology professor asking him to save bm, calmed him, Dr. Kenny in to see him, he discussed his loose stools this am and abd cramping, ordered a stool sample for cdiff, this was explained to the pt. he is a bit anxious about that. will be going for a cath around 1230. call light in reach.
--- NOTE | 2020-08-23 12:20 | NUR ---
Spiritual care visit conducted. Patient immediately tells me about his health issues and the plan the medical staff are working on with him. Patient then explains about his family unit complications and how they effect him emotionally. Patient tells me about his many other stressors and his struggle to cope with them. I provide therapeutic listening, anxiety containment and prayer. Patient responds well and shows signs of increased peace. I will continue to remain available to patient and family.
--- NOTE | 2020-08-23 12:56 | NUR ---
pt left for animal laboratory helper via bed.
--- NOTE | 2020-08-23 14:30 | NUR ---
pt returned to room from supervisor labor gang, he is awake, v.s. stable, cath site to right groin is soft, and clear, will continue to monitor, instructed pt on recovery for angio, he verbalizes understanding. call light in reach.
--- NOTE | 2020-08-23 18:53 | NUR ---
pt doing well, v.s. stable, he is being compliant with recovery, site remains soft, no s/s of bleeding or brusing, did give pain meds for back pain, call light in reach.
--- NOTE | 2020-08-23 20:20 | NUR ---
ASSUMED CARE RECEIVED REPORT FROM VANESSA MENDEZ RN; PT A&O X 4; DENIES CHEST PAIN; VSS; R GROIN SITE SCANT AMOUNT DRIED BLOOD NOTED; HEP GTT @ 14 U/KG/HR; O2 SATS >93 ON RA; CALL LIGHT IN REACH; BED IN LOWEST POSITION.
--- NOTE | 2020-08-23 22:38 | NUR ---
UPDATE DISCUSSED W/ LAB REGARDING A PTT THAT HAD BEEN CANCELLED @ 2200 AND NOTIFIED PHARMACIST OF CONCERN; NEW STAT PTT ORDERED; HEP GTT @ 14 U/KG/HR INFUSING
--- NOTE | 2020-08-24 04:40 | NUR ---
SHIFT SUMMARY PT A&O X 4; FIXATES ON ISSUES AND IS ANXIOUS AT TIMES; VSS; DENIES CHEST PAIN; R GROIN SITE TENDER, SMALL AMOUNT DRIED BLOOD NOTED ON DRESSING; HEP GTT @ 14 U/KG/HR PER PHARMACY; NSR NOTED ON TELE W/ HR 60'S-70'S; O2 SATS >93 ON RA; PT SBA FOR BRP W/ FWW; PT URINATES SMALL AMOUNTS OF DK YELLOW; PT C/O 9 OF 10 PAIN IN R GROIN SITE AND FENTANYL ADMINISTERED 2X THIS SHIFT IN ADDITION TO ICE PACK; NO DISTRESS NOTED; CALL LIGHT IN REACH; BED IN LOWEST POSITION; WILL CONTINUE TO MONITOR CLOSELY UNTIL HAND OFF TO DAY SHIFT RN.
--- NOTE | 2020-08-24 09:52 | NUR ---
stool sample rec'd by lab; GI panel is not available at this time, and specimen can't be checked for c-diff per parking lot laborer as it is solid. Order cancelled.
[2020-08-24] MEDS ORDERED: RANO500T PO (11:32)
[2020-08-24] MEDS ORDERED: VANCOCIN HCL250 MG PO (11:32)
--- NOTE | 2020-08-24 15:52 | NUR ---
DISCHARGE NOTE PT A&Ox3; CALM AND COOPERATIVE WITH CARE. PT ANXIOUS AT TIMES. PT UP SBA/IND IN ROOM. PT REPORTS PAIN TO RIGHT GROIN; RIGHT GROIN SITE C/D/I; SMALL BALL NOTED PER REPORT IS UNCHANGED. PT DENIES SOB, NASUEA AND DIZZINESS. VSS. NO OTHER ACUTE CHANGES NOTED DURING SHIFT. PT EDUCATED ON DISCHARGE INSTRUCTIONS, FOLLOW UP APPOINTMENTS AND MEDICATIONS. PRESCRIPTIONS CALLED TO JULITO SUMMERS. PT EDUCATED ON NEEDING RIDE HOME/GROIN SITE RECOVERY. NO OTHER ACUTE CHANGES NOTED. PT LEFT ROOM VIA WHEELCHAIR AT 1305.
== END 2020-08-24 13:08 | disposition home or self-care (01) | DRG 281 ==
LOC: ER 10:16 → PCU 13:38
PROVIDERS: Emergency Medicine; Nurse Practitioner Acute Care; ADMIT Family Medicine
PROC: 4A023N8 Measurement of Cardiac Sampling and Pressure, Bilateral, Percutaneous Approach (ICD-10-PCS; principal; 2020-08-23)
PROC: B211YZZ Fluoroscopy of Multiple Coronary Arteries using Other Contrast (ICD-10-PCS; 2020-08-23)
PROC: B41FYZZ Fluoroscopy of Right Lower Extremity Arteries using Other Contrast (ICD-10-PCS; 2020-08-23)
DX: I21.4 Non-ST elevation (NSTEMI) myocardial infarction (principal); I48.20 Chronic atrial fibrillation, unspecified; K62.5 Hemorrhage of anus and rectum; I42.2 Other hypertrophic cardiomyopathy; I10 Essential (primary) hypertension; I48.0 Paroxysmal atrial fibrillation; Z95.2 Presence of prosthetic heart valve; J44.9 Chronic obstructive pulmonary disease, unspecified; I25.10 Atherosclerotic heart disease of native coronary artery without angina pectoris; F41.8 Other specified anxiety disorders; K22.70 Barrett's esophagus without dysplasia; Z95.5 Presence of coronary angioplasty implant and graft; M32.9 Systemic lupus erythematosus, unspecified; I24.0 Acute coronary thrombosis not resulting in myocardial infarction
CPT/HCPCS: 0241U; 36415; 74177; 76937; 80048; 80053; 83735; 84484; 85014; 85018; 85025; 85027; 85610; 85651; 85730; 86140; 93005; 93010; 93306; 93455; 93571; 99152; 99153; 99285-25; A9270; C1760; C1769; C1887; J1644; J2250; J3010; J7030; J7050; Q9967

== ENCOUNTER 2020-11-19 09:27 | Inpatient (IN) | payer OTHER, MEDICARE ==
[~2020-11-19] VITALS: Ht 175.3 cm; Wt 76.5 kg
[~2020-11-19 09:27] MED LIST changes: +JANTOVEN2 MG PO; +LOW DOSE ASPIRI81 M1 PO; +VANCOCIN HCL250 MG PO; +Vitamin K100 MCG PO
[2020-11-19 10:01] LABS: BASOPHILS ABSOLUTE AUTO 0.05 K/mm3 (0.00-0.23); BASOPHILS PERCENT AUTO 0 % (0-2); EOSINOPHILS PERCENT AUTO 0 % (0-6); Hematocrit 46.8 % (37.0-53.0); Hemoglobin 16.3 g/dL (13.5-17.5); IMMATURE GRAN ABSOLUTE AUTO 0.22 K/mm3 (0.00-0.10); IMMATURE GRAN PERCENT AUTO 1 % (0-1); LYMPHOCYTES ABSOLUTE AUTO 0.67 K/mm3 (0.84-5.20); LYMPHOCYTES PERCENT AUTO 3 % (21-46); MONOCYTES ABSOLUTE AUTO 1.18 K/mm3 (0.16-1.47); MONOCYTES PERCENT AUTO 5 % (4-13); Mean Corpuscular HGB 30.1 pg (26.0-34.0); Mean Corpuscular HGB Conc 34.8 g/dL (31.5-36.5); Mean Corpuscular Volume 87 fL (80-100); Mean Platelet Volume 10.7 fL (9.1-12.4); NEUTROPHILS ABSOLUTE AUTO 23.15 K/mm3 (1.96-9.15); NEUTROPHILS PERCENT AUTO 92 % (41-73); NRBC ABSOLUTE 0.03 K/mm3 (0.00-0.02); NRBC Auto 0.1 /100 WBC (0.0-0.2); Platelet Count 250 K/mm3 (150-400); RDW Coefficient Variation 15.9 % (11.7-14.2); RDW Standard Deviation 48.3 fL (35.1-46.3); Red Blood Cell Count 5.41 M/mm3 (4.30-5.90); White Blood Cell Count 25.27 K/mm3 (4.00-11.30)
[2020-11-19 10:23] LABS: Prothrombin Time Results 54.5 Sec (9.7-11.5)
[2020-11-19 10:27] LABS: Alanine Aminotransfer (ALT/SGP 50 U/L (12-78); Albumin, Blood 4.3 g/dL (3.4-5.0); Albumin/Globulin Ratio 0.9 (0.8-1.8); Alk Phos 102 U/L (50-136); Anion Gap 19 mmol/L (6-16); Aspartate Aminotrans (AST/SGOT 58 U/L (12-37); Bilirubin, Total 1.9 mg/dL (0.1-1.0); Blood Urea Nitrogen 30 mg/dL (8-24); CO2, Blood 20 mmol/L (21-32); Chloride, Blood 97 mmol/L (98-108); Globulin, Blood 4.8 g/dL (2.2-4.0); Glomerular Filtration Rate >60 (60-); Glucose, Blood 213 mg/dL (70-99); Potassium, Blood 3.6 mmol/L (3.5-5.5); Sodium, Blood 136 mmol/L (136-145); Total Protein, Blood 9.1 g/dL (6.4-8.2); Troponin I <0.015 ng/mL (0.000-0.040)
[2020-11-19 10:31] LABS: International Normalized Ratio 5.56
[2020-11-19] MEDS ORDERED: PRAZOSIN HCL1 M2 PO (13:01)
[2020-11-19] MEDS ORDERED: Amiodarone HCl200 MG PO (13:02)
[2020-11-19] MEDS ORDERED: DILTIAZEM 24HR120 M4 PO (13:02)
[2020-11-19 14:26] LABS: Base Excess Venous 0.7 mmol/L; Bicarbonate Venous 25.2 mmol/L (24.0-30.0); PCO2 Venous 33.4 mmHg (38-42); PO2 Venous 46.4 mmHg (38-42); pH Blood Venous 7.47 (7.34-7.37)
--- NOTE | 2020-11-19 16:01 | NUR ---
pt arrived to pcu 7 via gurney from ed, report was obtained, a/ox3, pleasant and cooperative with care, follows commands well, reports mild chest pain from deep breath and vomiting, lungs are clear t/o, resp even and unlabored, no cough noted, hrirr, tele in place running afib per monitor, see strip, no edema noted, ppp+faint, legs appear mottled, iv site is clear and patent, infusing cardizem gtt at 10mls/hr, btx4, abd flat soft nontender, voids without diff, skin c/w/d, maew, pinky, is impulsive, oriented to room layout and call system, call light in reach.
[2020-11-19 16:40] LABS: Hematocrit 44.3 % (37.0-53.0); Hemoglobin 15.4 g/dL (13.5-17.5)
[2020-11-19 17:06] LABS: Magnesium, Blood 1.9 mg/dL (1.6-2.4); Troponin I <0.015 ng/mL (0.000-0.040)
--- NOTE | 2020-11-19 17:54 | NUR ---
pt doing ok, no further vomiting, v.s. stable, new iv started, continues on cardizem gtt, when he stood heart rate went up to 190's for a few minutes, no further changes this shift, call light in reach.
--- NOTE | 2020-11-19 18:32 | NUR ---
pt heart rate in the low 60's, turned off cardizem gtt.
[2020-11-19 23:22] LABS: Source, Urine Clean Catch
[2020-11-19 23:30] LABS: Blood, Urine 4+ (Neg); Glucose Qualitative, Urine Neg (Neg); Ketones, Urine 2+ (Neg); Leukocyte Esterase, Urine 1+ (Neg); Nitrite, Urine Pos (Neg); Protein, Urine 3+ (Neg); Urobilinogen, Urine 1+ (Normal)
[2020-11-19 23:38] LABS: Appearance, Urine Hazy (Clear); Bilirubin, Urine 1+ (Neg); Color, Urine Yellow (P-Yellow)
[2020-11-19 23:39] LABS: Bacteria Many /hpf; Red Blood Cells, Urine 0-2 /hpf (0-2); Squamous Epithelial Cells Rare /hpf (Few)
[2020-11-19 23:42] LABS: U Amphetamine Screen Not Detected; U Barbituate Screen Not Detected; U Benzodiazapine Screen DETECTED; U Buprenorphine Screen Not Detected; U Cannabinoids Screen DETECTED; U Cocaine Screen Not Detected; U Methadone Screen Not Detected; U Methamphetamine Screen Not Detected; U Opiates Screen Not Detected; U Oxycodone Screen Not Detected; U Phencyclidine Screen Not Detected; U Propoxyphene Screen Not Detected
[2020-11-20 05:12] LABS: BASOPHILS ABSOLUTE AUTO 0.01 K/mm3 (0.00-0.23); BASOPHILS PERCENT AUTO 0 % (0-2); EOSINOPHILS PERCENT AUTO 0 % (0-6); Hematocrit 36.2 % (37.0-53.0); Hemoglobin 12.2 g/dL (13.5-17.5); IMMATURE GRAN ABSOLUTE AUTO 0.14 K/mm3 (0.00-0.10); IMMATURE GRAN PERCENT AUTO 1 % (0-1); LYMPHOCYTES ABSOLUTE AUTO 0.65 K/mm3 (0.84-5.20); LYMPHOCYTES PERCENT AUTO 4 % (21-46); MONOCYTES ABSOLUTE AUTO 1.11 K/mm3 (0.16-1.47); MONOCYTES PERCENT AUTO 8 % (4-13); Mean Corpuscular HGB 29.3 pg (26.0-34.0); Mean Corpuscular HGB Conc 33.7 g/dL (31.5-36.5); Mean Corpuscular Volume 87 fL (80-100); Mean Platelet Volume 10.8 fL (9.1-12.4); NEUTROPHILS ABSOLUTE AUTO 12.87 K/mm3 (1.96-9.15); NEUTROPHILS PERCENT AUTO 87 % (41-73); Platelet Count 141 K/mm3 (150-400); RDW Coefficient Variation 15.9 % (11.7-14.2); RDW Standard Deviation 49.7 fL (35.1-46.3); Red Blood Cell Count 4.16 M/mm3 (4.30-5.90); White Blood Cell Count 14.78 K/mm3 (4.00-11.30)
[2020-11-20 05:26] LABS: International Normalized Ratio 2.23
[2020-11-20 05:42] LABS: Albumin, Blood 3.4 g/dL (3.4-5.0); Bun/Creatinine Ratio 24.6 (12.0-20.0); Calcium, Blood 8.3 mg/dL (8.5-10.1); Creatinine, Blood 1.34 mg/dL (0.60-1.20); Globulin, Blood 3.5 g/dL (2.2-4.0); Potassium, Blood 3.3 mmol/L (3.5-5.5)
[2020-11-20 05:47] LABS: Total Protein, Blood 6.9 g/dL (6.4-8.2)
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
--- NOTE | 2020-11-20 08:25 | NUR ---
UPDATE PHYSICIAN NOTIFIED OF PT'S PAIN AND NAUSEA. MEDICATION TO BE PROVIDED, SEE EMAR.
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
[2020-11-20 16:22] LABS: Hematocrit 32.8 % (37.0-53.0); Hemoglobin 11.2 g/dL (13.5-17.5)
--- NOTE | 2020-11-20 16:41 | NUR ---
PHYSICIAN UPDATED PT HAVING BLACK LOOSE STOOL. PHYSICIAN NOTIFIED. GUIAC STOOL SAMPLE ORDERED.
--- NOTE | 2020-11-20 17:10 | NUR ---
PHYSICIAN UPDATED PHYSICIAN NOTIFIED OF PT HAVING LIQUID STOOL. C.DIFF LAB TEST ORDERED PER PHYSICIAN. PT IN CONTACT PRECAUTIONS UNTIL TEST RESULTS RECIEVED.
--- NOTE | 2020-11-20 18:18 | NUR ---
SHIFT SUMMARY PT ALERT AND ORIENTED X 4. PT HAVING SMALL AMOUNTS OF EMESIS T/O SHIFT. PHYSICIAN NOTIFIED. MEDICATION ORDERED AND GIVEN PER PHYSICIAN. PT REPORTS RELIEF. PT BEGAN TO HAVE DARK, LIQUID STOOL. PHYSICIAN NOTIFIED. GI CONSULT. PT TO HAVE EGD TOMOROW AFTERNOON. CLEAR LIQUID DIET ORDERED FOR BREAKFAST AND LUNCH PER PHYSICIAN. HR STABLE. BP STABLE. MAP ABOVE 65. NO CP OR PRESSURE. OXYGEN SATURAITON MAINTAINED ABOVE 92% ON RA. PT IND TO COMMODE NEEDED. WILL CONTINUE TO MONITOR UNTIL REPORT GIVEN TO SANTHOSH WHITTINGTON.
--- NOTE | 2020-11-20 18:58 | NUR ---
UPDATE PHYSICIAN NOTIFIED IF PT'S INCREASE IN PAIN IN ABD. MEDICATION ORDERED, SEE EMAR.
[2020-11-20 20:46] LABS: Stool Occult Blood Guaiac 1 Pos (Neg)
[2020-11-20 23:32] LABS: C DIFFICILE DNA POSITIVE (Negative)
--- NOTE | 2020-11-21 04:51 | NUR ---
SHIFT SUMMARY PATIENT IS ALERT AND ORIENTED X4, CALLS APPROPRIATELY. INDEPENDENT TO BSC. NO STOOL THROUGHOUT THE NIGHT ONLY URINE. PATIENT COMPLAINED OF ABDOMINAL PAIN, MEDICATED PER EMAR. MEDICATED FOR NAUSEA, NO VOMITTING. CLEAR LIQUIDS ONLY. 02 SATS 95% ON RA. SR @70s-80s VSS, NO ACUTE CHANGES CALL LIGHT IN REACH.
[2020-11-21 04:52] LABS: BASOPHILS ABSOLUTE AUTO 0.01 K/mm3 (0.00-0.23); BASOPHILS PERCENT AUTO 0 % (0-2); EOSINOPHILS ABSOLUTE AUTO 0.01 K/mm3 (0.00-0.68); EOSINOPHILS PERCENT AUTO 0 % (0-6); Hematocrit 34.3 % (37.0-53.0); Hemoglobin 11.5 g/dL (13.5-17.5); IMMATURE GRAN ABSOLUTE AUTO 0.05 K/mm3 (0.00-0.10); IMMATURE GRAN PERCENT AUTO 1 % (0-1); LYMPHOCYTES ABSOLUTE AUTO 0.62 K/mm3 (0.84-5.20); LYMPHOCYTES PERCENT AUTO 8 % (21-46); MONOCYTES ABSOLUTE AUTO 0.94 K/mm3 (0.16-1.47); MONOCYTES PERCENT AUTO 12 % (4-13); Mean Corpuscular HGB 29.9 pg (26.0-34.0); Mean Corpuscular HGB Conc 33.5 g/dL (31.5-36.5); Mean Corpuscular Volume 89 fL (80-100); Mean Platelet Volume 11.1 fL (9.1-12.4); NEUTROPHILS ABSOLUTE AUTO 6.55 K/mm3 (1.96-9.15); NEUTROPHILS PERCENT AUTO 80 % (41-73); NRBC ABSOLUTE 0.02 K/mm3 (0.00-0.02); NRBC Auto 0.2 /100 WBC (0.0-0.2); Platelet Count 142 K/mm3 (150-400); RDW Coefficient Variation 16.2 % (11.7-14.2); RDW Standard Deviation 52.2 fL (35.1-46.3); Red Blood Cell Count 3.85 M/mm3 (4.30-5.90); White Blood Cell Count 8.18 K/mm3 (4.00-11.30)
[2020-11-21 05:04] LABS: International Normalized Ratio 1.6; Prothrombin Time Results 16.8 Sec (9.7-11.5)
[2020-11-21 05:15] LABS: Albumin, Blood 3.4 g/dL (3.4-5.0); Anion Gap 6 mmol/L (6-16); Blood Urea Nitrogen 29 mg/dL (8-24); Bun/Creatinine Ratio 21.3 (12.0-20.0); CO2, Blood 28 mmol/L (21-32); Calcium, Blood 8.4 mg/dL (8.5-10.1); Chloride, Blood 105 mmol/L (98-108); Creatinine, Blood 1.36 mg/dL (0.60-1.20); Glomerular Filtration Rate 56 (60-); Glucose, Blood 100 mg/dL (70-99); Phosphorus, Blood 3.1 mg/dL (2.5-4.9); Potassium, Blood 3.2 mmol/L (3.5-5.5); Sodium, Blood 139 mmol/L (136-145)
--- NOTE | 2020-11-21 07:27 | NUR ---
CONTACT INFECTION CONTROL INFORMED INFECTION CONTROL OF + CDIFF TEST RESULTS. PT TO REMAIN IN ENTERIC PRECAUTIONS UNTIL DISCHARGE.
[2020-11-21 12:37] LABS: SARS-Cov-2 (COVID-19) PCR, MMC NEGATIVE (NEGATIVE)
--- NOTE | 2020-11-21 15:58 | NUR ---
UPDATE PT TO DAY SURGERY BY KEN WITH RN.
--- NOTE | 2020-11-21 16:01 | NUR ---
History, Chart, Medications and Allergies reviewed before start of procedure.Pre-Op teaching done. Pt verbalizes understanding.
--- NOTE | 2020-11-21 16:53 | NUR ---
11/21/20 1653 Claudio Singh PATIENT DETERMINED TO BE ASA APPROPRIATE FOR PROPOFOL SEDATION PRIOR TO START OF PROCEDURE BY DR. SELF. 3-LEAD EKG REVIEWED WITH PHYSICIAN PRIOR TO START OF PROCEDURE. History, Chart, Medications and Allergies reviewed before start of procedure. MONITOR INTACT WITH CONTINUOUS PULSE OXIMETRY AND INTERMITTENT BP.
--- NOTE | 2020-11-21 18:37 | NUR ---
SHIFT SUMMARY PT ALERT AND ORIENTED X 4. HR STABLE. BP STABLE. NO CP OR PRESURE. OXYGEN SATURATION MAINTAINED ABOVE 92% ON RA. PT ON CLEAR LIQUID DIET FOR BREAKFAST AND LUNCH FOR EGD THIS AFTERNOON. POST OP VITAL SIGNS STABLE. PT REPORTS NAUSEA. MEDICATION PROVIDED. PT REPORTS ABD PAIN T/O SHIFT. MEDICATED PER EMAR. PT IND TO COMMODE. WILL CONTINUE TO MONITOR UNTIL REPORT GIVEN TO NIGHTSHIFT RN.
[2020-11-22 05:01] LABS: BASOPHILS ABSOLUTE AUTO 0.01 K/mm3 (0.00-0.23); BASOPHILS PERCENT AUTO 0 % (0-2); EOSINOPHILS ABSOLUTE AUTO 0.11 K/mm3 (0.00-0.68); EOSINOPHILS PERCENT AUTO 2 % (0-6); Hematocrit 31.6 % (37.0-53.0); Hemoglobin 10.6 g/dL (13.5-17.5); IMMATURE GRAN ABSOLUTE AUTO 0.06 K/mm3 (0.00-0.10); IMMATURE GRAN PERCENT AUTO 1 % (0-1); LYMPHOCYTES ABSOLUTE AUTO 0.97 K/mm3 (0.84-5.20); LYMPHOCYTES PERCENT AUTO 13 % (21-46); MONOCYTES ABSOLUTE AUTO 1.06 K/mm3 (0.16-1.47); MONOCYTES PERCENT AUTO 14 % (4-13); Mean Corpuscular HGB 30.2 pg (26.0-34.0); Mean Corpuscular HGB Conc 33.5 g/dL (31.5-36.5); Mean Corpuscular Volume 90 fL (80-100); Mean Platelet Volume 11.1 fL (9.1-12.4); NEUTROPHILS ABSOLUTE AUTO 5.15 K/mm3 (1.96-9.15); NEUTROPHILS PERCENT AUTO 70 % (41-73); Platelet Count 141 K/mm3 (150-400); RDW Coefficient Variation 16.2 % (11.7-14.2); RDW Standard Deviation 52.4 fL (35.1-46.3); Red Blood Cell Count 3.51 M/mm3 (4.30-5.90); White Blood Cell Count 7.36 K/mm3 (4.00-11.30)
[2020-11-22 05:16] LABS: International Normalized Ratio 2.2; Prothrombin Time Results 22.7 Sec (9.7-11.5)
[2020-11-22 05:32] LABS: Bun/Creatinine Ratio 16.8 (12.0-20.0); Calcium, Blood 8.3 mg/dL (8.5-10.1); Creatinine, Blood 1.43 mg/dL (0.60-1.20); Magnesium, Blood 1.9 mg/dL (1.6-2.4); Potassium, Blood 3.3 mmol/L (3.5-5.5)
--- NOTE | 2020-11-22 07:29 | NUR ---
SHIFT SUMMARY NO ACUTE CHANGES THIS SHIFT. PT A&OX4, SLIGHTLY ANXIOUS. SP02>90% ON RA. TELEMETRY READS SR, HR 60'S. PT C/O OF 6/10 THROAT TO MID ABD PAIN. MEDICATED W/ DUILADID PER EMAR X2 THIS SHIFT. PT CHOOSING TO EAT CLEAR LIQUIDS/ICE DURING SHIFT D/T PAIN. PT UP TO BSC W/ ONE PERSON ASSIST, STATES HE IS WEAK/ OCCASIONALLY FEELS DIZZY. PT SLEPT PART OF NIGHT. USES CALL LIGHT APPROPRIATELY. CALL LIGHT IN REACH. GAVE REPORT TO ONCOMING NURSE.
[2020-11-22 16:29] LABS: Hematocrit 32.7 % (37.0-53.0); Hemoglobin 10.9 g/dL (13.5-17.5)
--- NOTE | 2020-11-22 16:58 | NUR ---
SHIFT SUMMARY 1200 RECEIVED PT TO RM 312 FROM PCU 7 VIA W/C. PT ABLE TO TX SELF TO BED. RECEIVED REPORT FROM ERIKA WHITTINGTON. PT ADMITTED FOR A-FIB W/RVR; RESOLVED. PT LATER C/O BLOODY EMESIS AFTER NOSE BLEEDS. PT ON COUMADIN FOR MECH VALVE. EGD DONE; NEG FOR BLEED. PER REPORT, PT DECLINED TO GO HOME TODAY. PT TX'D TO MEDICAL FLOOR. PT THEN DECIDED THAT HE CHANGED HIS MIND AND WOULD GO HOME. ABALONE FISHERMAN NOTIFIED. PT THEN STATED THAT HE CHANGED HIS MIND AGAIN AND WANTED TO STAY. PT DECLINED TO EAT HIS LUNCH. DID DRINK HIS ENSURE AND BROTH. MEDS TAKEN WHOLE W/O DIFFICULTY. CALL LT IN REACH.
[2020-11-23 05:00] LABS: International Normalized Ratio 2.7; Prothrombin Time Results 27.6 Sec (9.7-11.5)
--- NOTE | 2020-11-23 06:00 | NUR ---
PT IS A/O, STANDBY ASSIST TO RESTROOM PT SOMETIMES FEELS DIZZY WHEN FIRST STANDING UP. POSSIBLE D/C HOME TODAY.
[2020-11-23] MEDS ORDERED: ASPIR 8181 M1 PO (12:10)
[2020-11-23] MEDS ORDERED: CARV25 PO (12:11)
[2020-11-23] MEDS ORDERED: PANT40 PO (12:12)
[2020-11-23] MEDS ORDERED: POTCHL20ER PO (12:13)
[2020-11-23] MEDS ORDERED: VANCOCIN HCL125 MG (12:15)
--- NOTE | 2020-11-23 13:48 | NUR ---
PT DISCHARGED FROM THE UNIT. IVS REMOVED. DISCHARGE INSTRUCTIONS REVIEWED. MEDICATIONS FAXED TO [facility] IN [place]. PT LEFT UNIT VIA WHEEL CHAIR
== END 2020-11-23 13:09 | disposition home or self-care (01) | DRG 345 ==
LOC: ER 09:27 → PCU 13:00 → MEDS 11-22 11:54
PROVIDERS: Emergency Medicine; Internal Medicine; Internal Medicine Gastroenterology; Nurse Practitioner Acute Care; ADMIT Internal Medicine
PROC: 0D9L8ZZ Drainage of Transverse Colon, Via Natural or Artificial Opening Endoscopic (ICD-10-PCS; 2020-11-21)
PROC: 0DCP8ZZ Extirpation of Matter from Rectum, Via Natural or Artificial Opening Endoscopic (ICD-10-PCS; 2020-11-21)
PROC: 0DCL8ZZ Extirpation of Matter from Transverse Colon, Via Natural or Artificial Opening Endoscopic (ICD-10-PCS; 2020-11-21)
PROC: 0DB68ZX Excision of Stomach, Via Natural or Artificial Opening Endoscopic, Diagnostic (ICD-10-PCS; principal; 2020-11-21 16:30)
PROC: 0D9P8ZZ Drainage of Rectum, Via Natural or Artificial Opening Endoscopic (ICD-10-PCS; 2020-11-21 16:30)
DX: K22.11 Ulcer of esophagus with bleeding (principal); K86.1 Other chronic pancreatitis; I42.2 Other hypertrophic cardiomyopathy; R65.10 Systemic inflammatory response syndrome (SIRS) of non-infectious origin without acute organ dysfunction; E87.2 Acidosis; E44.0 Moderate protein-calorie malnutrition; N17.9 Acute kidney failure, unspecified; K31.5 Obstruction of duodenum; K29.01 Acute gastritis with bleeding; I48.91 Unspecified atrial fibrillation; I25.10 Atherosclerotic heart disease of native coronary artery without angina pectoris; J44.9 Chronic obstructive pulmonary disease, unspecified; F32.9 Major depressive disorder, single episode, unspecified; F41.9 Anxiety disorder, unspecified; K21.9 Gastro-esophageal reflux disease without esophagitis; R04.0 Epistaxis; M32.9 Systemic lupus erythematosus, unspecified; D72.829 Elevated white blood cell count, unspecified; Z20.822 Contact with and (suspected) exposure to COVID-19; K44.9 Diaphragmatic hernia without obstruction or gangrene; K64.8 Other hemorrhoids; K57.31 Diverticulosis of large intestine without perforation or abscess with bleeding; I12.9 Hypertensive chronic kidney disease with stage 1 through stage 4 chronic kidney disease, or unspecified chronic kidney disease; N18.30 Chronic kidney disease, stage 3 unspecified; K76.0 Fatty (change of) liver, not elsewhere classified; Z95.2 Presence of prosthetic heart valve; Z95.1 Presence of aortocoronary bypass graft; Z88.0 Allergy status to penicillin; Z79.01 Long term (current) use of anticoagulants; Z88.2 Allergy status to sulfonamides; Z95.5 Presence of coronary angioplasty implant and graft; Z98.890 Other specified postprocedural states; Z79.899 Other long term (current) drug therapy; Z79.82 Long term (current) use of aspirin; Z87.11 Personal history of peptic ulcer disease; Z91.14 Patient's other noncompliance with medication regimen
CPT/HCPCS: 36415; 70450; 71046; 74177; 76705; 80048; 80053; 80069; 81001; 82270; 82803; 83605; 83690; 83735; 84145; 84443; 84484; 85014; 85018; 85025; 85610; 85730; 86850; 86900; 86901; 87040; 87086; 87324; 87493; 88305; 88312; 88342; 93005; 93010; 94640; 94760; 96361; 96365; 96366; 96375; 96376; 97116; 97162; 97530; 99285-25; A9270; C9113; G0378; J0696; J1170; J2060; J2405; J2550; J2704; J7030; J7120; Q9967; U0004

== ENCOUNTER 2021-05-21 17:09 | Emergency (ER) | payer OTHER ==
[~2021-05-21] VITALS: Ht 175.3 cm; Wt 79.8 kg
[~2021-05-21 17:09] MED LIST changes: +ASPIR 8181 M1 PO; +DILTIAZEM 24HR120 M4 PO; +POTCHL20ER PO; +PRAZOSIN HCL1 M2 PO; +VANCOCIN HCL125 MG
== END 2021-05-21 18:25 | disposition home or self-care (01) ==
LOC: ER 17:09
DX: R79.1 Abnormal coagulation profile (principal); I48.91 Unspecified atrial fibrillation; I48.92 Unspecified atrial flutter; I25.10 Atherosclerotic heart disease of native coronary artery without angina pectoris; I10 Essential (primary) hypertension; J44.9 Chronic obstructive pulmonary disease, unspecified; K21.9 Gastro-esophageal reflux disease without esophagitis; Z88.2 Allergy status to sulfonamides; Z88.0 Allergy status to penicillin; Z79.899 Other long term (current) drug therapy; Z79.01 Long term (current) use of anticoagulants; Z79.82 Long term (current) use of aspirin; Z95.1 Presence of aortocoronary bypass graft
CPT/HCPCS: 99282; A9270

== ENCOUNTER 2021-06-05 10:39 | Emergency (ER) | payer OTHER ==
[~2021-06-05] VITALS: Ht 172.7 cm; Wt 79.8 kg
[2021-06-05 11:39] LABS: BASOPHILS ABSOLUTE AUTO 0.02 K/mm3 (0.00-0.23); BASOPHILS PERCENT AUTO 0 % (0-2); EOSINOPHILS ABSOLUTE AUTO 0.14 K/mm3 (0.00-0.68); EOSINOPHILS PERCENT AUTO 2 % (0-6); Hematocrit 47.4 % (37.0-53.0); Hemoglobin 16.1 g/dL (13.5-17.5); IMMATURE GRAN ABSOLUTE AUTO 0.03 K/mm3 (0.00-0.10); IMMATURE GRAN PERCENT AUTO 0 % (0-1); LYMPHOCYTES PERCENT AUTO 8 % (21-46); MONOCYTES ABSOLUTE AUTO 1.08 K/mm3 (0.16-1.47); MONOCYTES PERCENT AUTO 13 % (4-13); Mean Corpuscular HGB 29.4 pg (26.0-34.0); Mean Corpuscular Volume 87 fL (80-100); Mean Platelet Volume 10.8 fL (9.1-12.4); NEUTROPHILS ABSOLUTE AUTO 6.37 K/mm3 (1.96-9.15); NEUTROPHILS PERCENT AUTO 76 % (41-73); Platelet Count 184 K/mm3 (150-400); RDW Coefficient Variation 16.1 % (11.7-14.2); RDW Standard Deviation 49.3 fL (35.1-46.3); Red Blood Cell Count 5.47 M/mm3 (4.30-5.90); White Blood Cell Count 8.34 K/mm3 (4.00-11.30)
[2021-06-05 11:46] LABS: Anion Gap 14 mmol/L (6-16); Blood Urea Nitrogen 25 mg/dL (8-24); Bun/Creatinine Ratio 17.2 (12.0-20.0); CO2, Blood 24 mmol/L (21-32); Calcium, Blood 9.7 mg/dL (8.5-10.1); Chloride, Blood 101 mmol/L (98-108); Creatinine, Blood 1.45 mg/dL (0.60-1.20); Glomerular Filtration Rate 49 (60-); Glucose, Blood 108 mg/dL (70-99); Potassium, Blood 3.4 mmol/L (3.5-5.5); Sodium, Blood 139 mmol/L (136-145); Troponin I <0.015 ng/mL (0.000-0.040)
[2021-06-05] MEDS ORDERED: Acetaminophen500 MG PO (13:41)
== END 2021-06-05 14:49 | disposition home or self-care (01) ==
LOC: ER 10:39
PROVIDERS: Student in an Organized Health Care Education/Training Program
DX: R07.2 Precordial pain (principal); Z88.2 Allergy status to sulfonamides; Z88.0 Allergy status to penicillin; Z79.899 Other long term (current) drug therapy; Z79.01 Long term (current) use of anticoagulants; Z79.82 Long term (current) use of aspirin; I48.91 Unspecified atrial fibrillation; I25.10 Atherosclerotic heart disease of native coronary artery without angina pectoris; I10 Essential (primary) hypertension; J44.9 Chronic obstructive pulmonary disease, unspecified; K21.9 Gastro-esophageal reflux disease without esophagitis
CPT/HCPCS: 71046; 80048; 84484; 85025; 93005; 93010; 99285-25; A9270

== ENCOUNTER 2021-06-18 12:19 | Inpatient (IN) | payer OTHER ==
[~2021-06-18] VITALS: Ht 175.3 cm; Wt 72.4 kg
[~2021-06-18 12:19] MED LIST changes: -ASPIR 8181 M1 PO; +Acetaminophen500 MG PO; -JANTOVEN2 MG PO
[2021-06-18 13:14] LABS: Hematocrit 54.3 % (37.0-53.0); Hemoglobin 18.8 g/dL (13.5-17.5); Mean Corpuscular HGB 29.4 pg (26.0-34.0); Mean Corpuscular HGB Conc 34.6 g/dL (31.5-36.5); Mean Corpuscular Volume 85 fL (80-100); Mean Platelet Volume 10.5 fL (9.1-12.4); Platelet Count 373 K/mm3 (150-400); RDW Coefficient Variation 16.5 % (11.7-14.2); RDW Standard Deviation 48.2 fL (35.1-46.3)
[2021-06-18 13:25] LABS: Albumin, Blood 4.3 g/dL (3.4-5.0); Albumin/Globulin Ratio 0.8 (0.8-1.8); Bilirubin, Total 1.5 mg/dL (0.1-1.0); Bun/Creatinine Ratio 23.4 (12.0-20.0); Calcium, Blood 10.4 mg/dL (8.5-10.1); Creatinine, Blood 3.03 mg/dL (0.60-1.20); Globulin, Blood 5.2 g/dL (2.2-4.0); Potassium, Blood 4.5 mmol/L (3.5-5.5); Total Protein, Blood 9.5 g/dL (6.4-8.2); Troponin I 0.078 ng/mL (0.000-0.040)
[2021-06-18 14:18] LABS: BAND PERCENT MAN 2 % (0-8); BASOPHILS PERCENT MAN 0 % (0-2); EOSINOPHILS PERCENT MAN 0 % (0-6); LYMPHOCYTES PERCENT MAN 4 % (21-46); MONOCYTES PERCENT MAN 6 % (4-13); SEG NEUTROPHILS PERCENT MAN 88 % (41-73); TOTAL CELLS COUNTED 100
[2021-06-18 18:10] LABS: Source, Urine Voided
[2021-06-18 18:37] LABS: Blood, Urine 1+ (Neg); Glucose Qualitative, Urine Neg (Neg); Ketones, Urine 1+ (Neg); Leukocyte Esterase, Urine 2+ (Neg); Nitrite, Urine Neg (Neg); Protein, Urine 3+ (Neg); Specific Gravity, Urine 1.025 (1.003-1.022); Urobilinogen, Urine 1+ (Normal)
[2021-06-18 18:37] LABS: Troponin I 0.082 ng/mL (0.000-0.040)
[2021-06-18 18:38] LABS: Appearance, Urine Clear (Clear); Bilirubin, Urine 2+ (Neg); Color, Urine Amber (P-Yellow)
[2021-06-18 18:39] LABS: Red Blood Cells, Urine 0-2 /hpf (0-2)
[2021-06-18 18:40] LABS: Bacteria Few /hpf; Calcium Oxalate Crystals Mod /hpf; Granular Casts 0-2 /lpf (0); Hyaline Casts 0-2 /lpf (0-2); Squamous Epithelial Cells Few /hpf (Few)
[2021-06-18 18:45] LABS: U Amphetamine Screen Not Detected; U Barbituate Screen Not Detected; U Benzodiazapine Screen Not Detected; U Buprenorphine Screen Not Detected; U Cannabinoids Screen DETECTED; U Cocaine Screen Not Detected; U Methadone Screen Not Detected; U Methamphetamine Screen Not Detected; U Opiates Screen DETECTED; U Oxycodone Screen Not Detected; U Phencyclidine Screen Not Detected; U Propoxyphene Screen Not Detected
--- NOTE | 2021-06-18 22:44 | NUR ---
PATIENT IS A NEW ADMIT FROM THE ED. THREE PERSON ASSIST FROM THE GURNEY TO THE BED. AXOX 4 AND 1-2 ASSIST TO BSC. ON ROOM AIR. REPORTS SOB W/EXERTION. NA BICARB 1/2 NS INFUSING AT 100mL/HR FROM THE ED. REPORTED ABDOMINAL/LEG PAIN 02/11. TELEMETRY PLACED AND TECH REPORTS ST112. REPORTS EPIGASTRIC PAIN AND MAALOX X ORDERED FROM PHARMACY PRN. PATIENT ORIENTED TO ROOM AND CALL LIGHT SYSTEM.
[2021-06-18 23:28] LABS: International Normalized Ratio 1.09; Prothrombin Time Results 11.4 Sec (9.7-11.5)
--- NOTE | 2021-06-19 00:13 | NUR ---
IV FENTANYL 50 MCG GIVEN PER EMAR FOR ABDOMINAL/LEG PAIN. HR ELEVATED ST 145-[address] PER CREDIT UNION TELLER.
--- NOTE | 2021-06-19 00:29 | NUR ---
SUPERVISOR COREMAKER REPORTED A-FLUTTER 134 AND BACK DOWN TO A-FLUTTER 110. [facility].
[2021-06-19 01:34] LABS: BASOPHILS ABSOLUTE AUTO 0.03 K/mm3 (0.00-0.23); BASOPHILS PERCENT AUTO 0 % (0-2); EOSINOPHILS PERCENT AUTO 0 % (0-6); Hematocrit 48.1 % (37.0-53.0); Hemoglobin 16.7 g/dL (13.5-17.5); IMMATURE GRAN ABSOLUTE AUTO 0.14 K/mm3 (0.00-0.10); IMMATURE GRAN PERCENT AUTO 1 % (0-1); LYMPHOCYTES ABSOLUTE AUTO 0.75 K/mm3 (0.84-5.20); LYMPHOCYTES PERCENT AUTO 3 % (21-46); MONOCYTES ABSOLUTE AUTO 1.49 K/mm3 (0.16-1.47); MONOCYTES PERCENT AUTO 7 % (4-13); Mean Corpuscular HGB 29.3 pg (26.0-34.0); Mean Corpuscular HGB Conc 34.7 g/dL (31.5-36.5); Mean Corpuscular Volume 85 fL (80-100); Mean Platelet Volume 10.6 fL (9.1-12.4); NEUTROPHILS ABSOLUTE AUTO 19.91 K/mm3 (1.96-9.15); NEUTROPHILS PERCENT AUTO 89 % (41-73); Platelet Count 274 K/mm3 (150-400); RDW Coefficient Variation 15.9 % (11.7-14.2); RDW Standard Deviation 48.7 fL (35.1-46.3); Red Blood Cell Count 5.69 M/mm3 (4.30-5.90); White Blood Cell Count 22.32 K/mm3 (4.00-11.30)
[2021-06-19 02:02] LABS: Albumin, Blood 3.7 g/dL (3.4-5.0); Albumin/Globulin Ratio 0.9 (0.8-1.8); Bilirubin, Total 0.9 mg/dL (0.1-1.0); Bun/Creatinine Ratio 23.9 (12.0-20.0); Calcium, Blood 9.1 mg/dL (8.5-10.1); Creatinine, Blood 3.52 mg/dL (0.60-1.20); Globulin, Blood 4.2 g/dL (2.2-4.0); Potassium, Blood 4.4 mmol/L (3.5-5.5); Total Protein, Blood 7.9 g/dL (6.4-8.2)
--- NOTE | 2021-06-19 02:06 | NUR ---
RT IN FOR BREATHING TX PRN.
[2021-06-19 02:12] LABS: Troponin I 0.053 ng/mL (0.000-0.040)
--- NOTE | 2021-06-19 03:33 | NUR ---
DIRECTOR OF DESIGN REPORTS SUSTAINING HR A-FLUTTER 130-140'S. HOSPITALIST DR JIMÉNEZ NOTIFIED AND ORDERED IV LOPRESSOR 5MG Q6 PRN FOR HR >120 AND HOLD FOR SBP<100.
--- NOTE | 2021-06-19 04:42 | NUR ---
HR A FLUTTER 130-140'S AND IV LOPRESSOR 5 MG GIVEN PER EMAR FOR HR >120. TELEMETRY MONITORING. HR RECHECK 83
--- NOTE | 2021-06-19 04:47 | NUR ---
SHIFT SUMMARY LIFE EDUCATOR REPORTS ST 112 ON ADMIT. PATIENT HR UP TO 130'S AND BACK DOWN TO 110. HR CONTINUE TO ELEVATE AND DECREASE AND FINALLY SUSTAINED AT A FLUTTER 130-140. IV LOPRESSOR 5 MG GIVEN PER HOSPITALIST DR JIMÉNEZ WITH CARDIAC MONITORING. RECHECK AT HR 83. PATIENT REPORTED HE DID NOT HOLD DOWN MEDICATION X TWO DAYS WITH N/V AT HOME. REPORTED ABDOMINAL PAIN X TWO AND IV FENTANYL 50 MCG GIVEN PER EMAR. REPORTED EPIGASTRIC PAIN AND GI COCKTAIL GIVEN PER EMAR WITH GOOD RELIEF. SBP 120/83. AFEBRILE. RT IN FOR BREATHING TX X ONE. AXOX 4 AND 1-2 ASSIST TO BSC. REPORTED WEAK NOT EATING LAST FEW DAYS. PIV REMAINS INTACT. SODIUM BICARB 1/2 NS INFUSING AT 100mL/HR. MOTTLED BLE. PATIENT REPORTS LIVING ALONE BUT ON LIST FOR ASSISTED LIVING. CALL LIGHT IN REACH. BED IN LOWEST POSITION. WILL CONTINUE TO MONITOR UNTIL DAY SHIFT NURSE ASSUMES CARE.
[2021-06-19] MEDS ORDERED: JANTOVEN2 MG PO (14:27)
[2021-06-19] MEDS ORDERED: ATOR40TA PO (14:27)
[2021-06-19] MEDS ORDERED: WARF4 PO (14:27)
[2021-06-19] MEDS ORDERED: LISI20 PO (14:27)
[2021-06-19] MEDS ORDERED: VITAMIN D310 MC4 PO (14:29)
[2021-06-19] MEDS ORDERED: ESCI20 PO (14:29)
[2021-06-19] MEDS ORDERED: Amiodarone HCl200 MG PO (14:30)
[2021-06-19] MEDS ORDERED: CARV25 PO (14:30)
[2021-06-19] MEDS ORDERED: CALCIUM CARBONA PO (14:31)
[2021-06-19] MEDS ORDERED: ALBU90OI INH (14:32)
[2021-06-19] MEDS ORDERED: ASPIR 8181 M1 PO (14:35)
--- NOTE | 2021-06-19 16:54 | NUR ---
SHIFT SUMMARY PATIENT IS ALERT AND ORIENTED X3. PATIENT HAS HAD PAIN MEDICATION 3X THIS SHIFT PER EMAR. PATIENT HAS HAD NO COMPLAINTS OF NAUSEA, VOMITTING OR SOB THIS SHIFT. VITAL SIGNS REVIEWED. NO ACUTE EVENTS THIS SHIFT. PATIENT HAS GONE FROM NPO DIET TO FULL LIQUID AND IS TOLERATING FULL LIQUID THUS FAR. BED IN LOWEST POSITION. CALL LIGHT IN PLACE. WILL MONITOR UNTIL SHIFT CHANGE.
[2021-06-19 23:20] LABS: International Normalized Ratio 1.13; Prothrombin Time Results 11.8 Sec (9.7-11.5)
--- NOTE | 2021-06-20 04:00 | NUR ---
SHIFT SUMMARY ADMITTED FOR ARF/AFLUTTER/ELEVATED TROPONINS. FULL CODE. HE IS ON WAITING LIST FOR PLACEMENT TO [facility]. TELEMETRY: AFLUTTER @ 78 BPM. TROPONINS ARE TRENDING DOWN. HE IS ON WARFARIN. FULL LIQUID DIET. I DID MEDICATE FOR PAIN THIS SHIFT. GI COCKTAIL GIVEN THIS SHIFT. WBC'S ARE ELEVATED. HE USES A FWW @ HOME. HE DOES HAVE HOME CAREGIVERS, BUT NOT 24 HRS/DAY.
[2021-06-20 05:37] LABS: Hematocrit 39.9 % (37.0-53.0); Hemoglobin 13.8 g/dL (13.5-17.5); Mean Corpuscular HGB 29.7 pg (26.0-34.0); Mean Corpuscular HGB Conc 34.6 g/dL (31.5-36.5); Mean Corpuscular Volume 86 fL (80-100); Mean Platelet Volume 11.2 fL (9.1-12.4); Platelet Count 152 K/mm3 (150-400); RDW Coefficient Variation 15.6 % (11.7-14.2); RDW Standard Deviation 48.6 fL (35.1-46.3); Red Blood Cell Count 4.65 M/mm3 (4.30-5.90); White Blood Cell Count 11.29 K/mm3 (4.00-11.30)
[2021-06-20 06:46] LABS: Bun/Creatinine Ratio 29.3 (12.0-20.0); Calcium, Blood 8.5 mg/dL (8.5-10.1); Creatinine, Blood 2.76 mg/dL (0.60-1.20); Potassium, Blood 3.7 mmol/L (3.5-5.5)
[2021-06-20 10:28] LABS: International Normalized Ratio 1.16; Prothrombin Time Results 12.1 Sec (9.7-11.5)
--- NOTE | 2021-06-20 12:34 | NUR ---
Patient tells me about his medical issues and the events that led to his hospitalization. He talks about the positive changes that have occurred in his life over the last six months by having home health come in and assist him. He also discusses the emotional pain he has been experiencing because of needing to give his dog away. He found a good home for him but is still grieving. He felt he needed to get rid of his dog because the pt can no longer manage without care and has his name on the list for [facility]. He also shares about the loneliness he experiences. I provide therapeutic listening, companionship and prayer. Patient responds well and shows signs of an elevated mood. I will continue to remain available to patient and family.
--- NOTE | 2021-06-20 16:39 | NUR ---
SHIFT SUMMARY PATIENT IS ALERT AND ORIENTED X3. PATIENT HAS BEEN RESTING MOST OF SHIFT. PATIENT HAD A SHOWER TODAY. PATIENT HAS BEEN RECEIVING FENTNYL Q4 MOST OF SHIFT FOR CHRONIC PAIN. PATIENT IS ON WAITING LIST FOR ASSISTED LIVING. TELE WAS DCD TODAY. PATIENT HAS BEEN TOLERATING FULL LIQUID WELL. PATIENT HAS A GI COCKTAIL THAT IS PRN Q6 ON COMPUTER. VITAL SIGNS REVIEWED. NO ACUTE ISSUES THIS SHIFT. WILL MONITOR UNTIL SHIFT CHANGE.
--- NOTE | 2021-06-21 04:05 | NUR ---
PT REPORTS THAT PROVIDER SPOKE WITH HIM YESTERDAY ABOUT POSSIBLE DISCHARGE TODAY. I SPOKE WITH HIM REGARDING THE CONSISTENT NEED OF IV PAIN MEDICATION AND THAT HE WOULD NEED TO BE SWAPPED TO ORAL PAIN MEDICATION BEFORE DISCHARGE. PT APPEARS DISTRAUGHT AND STATES HE WILL BRING THIS UP WITH THE ROUNDING HOSPITALIST TODAY.
--- NOTE | 2021-06-21 04:17 | NUR ---
CUSTOMER FACILITIES SUPERVISOR SUMMARY ADMITTED FOR AFIB WITH RVR/SEAN. PT IS A FULL CODE. PLAN FOR PLACEMENT AT [facility]. PT MEDICATED X2 FOR ABDOMINAL PAIN THROUGHOUT THE NIGHT. REPORTING CONTINUED NEED OF IV PAIN MEDICATION, THOUGH ENCOURAGED TO SPEAK WITH PROVIDER REGARDING SWAPPING TO ORAL MEDICATION. PT CONTINUING TO GET LACTATED RINGERS. NO COMPLAINTS OF CHEST PAIN. NO OTHER CONCERNS THIS SHIFT.
[2021-06-21 05:19] LABS: International Normalized Ratio 1.16; Prothrombin Time Results 12.1 Sec (9.7-11.5)
[2021-06-21 05:49] LABS: Bun/Creatinine Ratio 29.7 (12.0-20.0); Calcium, Blood 8.2 mg/dL (8.5-10.1); Creatinine, Blood 2.09 mg/dL (0.60-1.20); Potassium, Blood 3.3 mmol/L (3.5-5.5)
[2021-06-21] MEDS ORDERED: LAMO100 PO (10:59)
[2021-06-21] MEDS ORDERED: CEFU500T30 PO (10:59)
[2021-06-21] MEDS ORDERED: PANT20 PO (11:00)
[2021-06-21] MEDS ORDERED: MAALOX PLUS PO (11:03)
[2021-06-21] MEDS ORDERED: SUCR1 PO (11:12)
--- NOTE | 2021-06-21 12:09 | NUR ---
DISCHARGE SUMMARY PT DISCHARGED FROM HOSPITAL. TRANSPORTED TO [facility] WHERE RIDE WAS WAITING VIA WHEELCHAIR. PERSONAL BELONGINGS TRANSFERED ALONG WITH PT. IV REMOVED PRIOR TO DISCHARGE. DISCHARGE EDUCATION REVIEWED WITH PT PRIOR TO DISCHARGE. MEDS FAXED TO [facility].
== END 2021-06-21 12:14 | disposition home or self-care (01) | DRG 683 ==
LOC: ER 12:19 → ERHOLD 16:36 → MEDS 20:33
PROVIDERS: Emergency Medicine; Internal Medicine; ADMIT Internal Medicine
DX: N17.9 Acute kidney failure, unspecified (principal); K86.1 Other chronic pancreatitis; I48.92 Unspecified atrial flutter; N39.0 Urinary tract infection, site not specified; I25.10 Atherosclerotic heart disease of native coronary artery without angina pectoris; Z23 Encounter for immunization; J44.9 Chronic obstructive pulmonary disease, unspecified; I10 Essential (primary) hypertension; K22.70 Barrett's esophagus without dysplasia; K21.9 Gastro-esophageal reflux disease without esophagitis; E86.0 Dehydration; F41.8 Other specified anxiety disorders; I48.91 Unspecified atrial fibrillation; Z98.890 Other specified postprocedural states; Z95.1 Presence of aortocoronary bypass graft; Z88.0 Allergy status to penicillin; Z88.2 Allergy status to sulfonamides; Z79.2 Long term (current) use of antibiotics; Z79.01 Long term (current) use of anticoagulants; Z79.82 Long term (current) use of aspirin; Z79.899 Other long term (current) drug therapy
CPT/HCPCS: 36415; 71045; 74176; 76705; 80048; 80053; 81001; 82550; 83605; 83690; 83735; 83880; 84484; 85025; 85027; 85610; 87086; 87147; 90686; 93005; 93010; 94640; 94664; 94760; 96365; 96366; 96375; 99285-25; A9270; C9113; J1644; J2270; J2405; J3010; J7120

== ENCOUNTER 2021-09-03 13:29 | Inpatient (IN) | payer OTHER ==
[~2021-09-03] VITALS: Ht 175.3 cm; Wt 78.3 kg
[~2021-09-03 13:29] MED LIST changes: +ALMACONE SUSPE355 ML PO; +ASPIR 8181 M1 PO; +CALCIUM CARBONA PO; +CEFU500T30 PO; +ENOX80I SC; +JANTOVEN2 MG PO; +MAALOX PLUS PO; +PANT20 PO; +SUCR1 PO; +VITAMIN D310 MC4 PO
[2021-09-03 13:55] LABS: BASOPHILS ABSOLUTE AUTO 0.04 K/mm3 (0.00-0.23); BASOPHILS PERCENT AUTO 0 % (0-2); EOSINOPHILS PERCENT AUTO 0 % (0-6); Hematocrit 53.7 % (37.0-53.0); Hemoglobin 17.6 g/dL (13.5-17.5); IMMATURE GRAN PERCENT AUTO 1 % (0-1); LYMPHOCYTES PERCENT AUTO 3 % (21-46); MONOCYTES PERCENT AUTO 5 % (4-13); Mean Corpuscular HGB 29.3 pg (26.0-34.0); Mean Corpuscular HGB Conc 32.8 g/dL (31.5-36.5); Mean Corpuscular Volume 90 fL (80-100); Mean Platelet Volume 9.7 fL (9.1-12.4); NEUTROPHILS PERCENT AUTO 92 % (41-73); Platelet Count 381 K/mm3 (150-400); RDW Coefficient Variation 15.5 % (11.7-14.2); RDW Standard Deviation 50.4 fL (35.1-46.3); White Blood Cell Count 18.24 K/mm3 (4.00-11.30)
[2021-09-03 14:20] LABS: Albumin, Blood 4.8 g/dL (3.4-5.0); Albumin/Globulin Ratio 0.9 (0.8-1.8); Bilirubin, Total 1.2 mg/dL (0.1-1.0); Bun/Creatinine Ratio 18.4 (12.0-20.0); Calcium, Blood 10.4 mg/dL (8.5-10.1); Creatinine, Blood 2.06 mg/dL (0.60-1.20); Globulin, Blood 5.2 g/dL (2.2-4.0); Potassium, Blood 4.3 mmol/L (3.5-5.5)
[2021-09-03 14:25] LABS: International Normalized Ratio 1.04; Prothrombin Time Results 10.9 Sec (9.7-11.5)
[2021-09-03 15:13] LABS: Influenza A, PCR NEGATIVE (NEGATIVE); Influenza B, PCR NEGATIVE (NEGATIVE); Resp Syncytial Virus, PCR NEGATIVE (NEGATIVE); SARS-Cov-2 (COVID-19) PCR, MMC NEGATIVE (NEGATIVE)
[2021-09-03 15:45] LABS: Source, Urine Clean Catch
[2021-09-03 15:51] LABS: Appearance, Urine Cloudy (Clear); Blood, Urine 3+ (Neg); Color, Urine Amber (P-Yellow); Glucose Qualitative, Urine Neg (Neg); Ketones, Urine 1+ (Neg); Leukocyte Esterase, Urine 2+ (Neg); Nitrite, Urine Pos (Neg); Protein, Urine 4+ (Neg); Urobilinogen, Urine 1+ (Normal)
[2021-09-03 16:32] LABS: Bilirubin, Urine 2+ (Neg)
[2021-09-03 16:35] LABS: Amorphous Mod (0-Heavy); Bacteria Many /hpf; Granular Casts 25-50 /lpf (0); Hyaline Casts 25-50 /lpf (0-2); Mucus Light (0-Heavy); Red Blood Cells, Urine 0-2 /hpf (0-2); Squamous Epithelial Cells Few /hpf (Few); Yeast/Fungi Urine Rare /hpf
[2021-09-03 16:36] LABS: Calcium Oxalate Crystals Few /hpf
[2021-09-04 04:56] LABS: BASOPHILS ABSOLUTE AUTO 0.02 K/mm3 (0.00-0.23); BASOPHILS PERCENT AUTO 0 % (0-2); EOSINOPHILS PERCENT AUTO 0 % (0-6); Hematocrit 44.2 % (37.0-53.0); Hemoglobin 14.1 g/dL (13.5-17.5); IMMATURE GRAN ABSOLUTE AUTO 0.07 K/mm3 (0.00-0.10); IMMATURE GRAN PERCENT AUTO 0 % (0-1); LYMPHOCYTES ABSOLUTE AUTO 0.69 K/mm3 (0.84-5.20); LYMPHOCYTES PERCENT AUTO 4 % (21-46); MONOCYTES ABSOLUTE AUTO 1.06 K/mm3 (0.16-1.47); MONOCYTES PERCENT AUTO 6 % (4-13); Mean Corpuscular HGB 29.4 pg (26.0-34.0); Mean Corpuscular HGB Conc 31.9 g/dL (31.5-36.5); Mean Corpuscular Volume 92 fL (80-100); Mean Platelet Volume 10.2 fL (9.1-12.4); NEUTROPHILS ABSOLUTE AUTO 15.39 K/mm3 (1.96-9.15); NEUTROPHILS PERCENT AUTO 89 % (41-73); Platelet Count 230 K/mm3 (150-400); RDW Coefficient Variation 15.7 % (11.7-14.2); RDW Standard Deviation 52.8 fL (35.1-46.3); White Blood Cell Count 17.23 K/mm3 (4.00-11.30)
[2021-09-04 05:13] LABS: Prothrombin Time Results 10.5 Sec (9.7-11.5)
[2021-09-04 05:39] LABS: Albumin, Blood 3.7 g/dL (3.4-5.0); Albumin/Globulin Ratio 0.9 (0.8-1.8); Bilirubin, Total 0.6 mg/dL (0.1-1.0); Bun/Creatinine Ratio 27.5 (12.0-20.0); Calcium, Blood 8.5 mg/dL (8.5-10.1); Creatinine, Blood 1.6 mg/dL (0.60-1.20); Potassium, Blood 4.1 mmol/L (3.5-5.5)
[2021-09-04 05:40] LABS: Total Protein, Blood 7.7 g/dL (6.4-8.2)
--- NOTE | 2021-09-04 06:03 | NUR ---
SHIFT SUMMAEY 61 YR M ADMITTED ON 09/03/21 FOR ABDOMINAL PAIN AND UTI. FULL CODE. PT HAS A URIBE BUT STATES THAT HE CONTINUALLY FEELS THE NEED TO URINATE. HE C/O SEVERE PAIN IN HIS ABDOMEN AND WOULD LIKE TO STAY ON TOP OF HIS PAIN MANAGEMENT. HE C/O CHEST PAIN AND STATES IT IS SEVERE HEARTBURN AND REFLUX. HE WAS MEDICATED PER EMAR. HE IS A&O X 4 AND IS ACTIVELY PARTICIPATING IN HIS OWN CARE. HE IS INDEPENDANT BUT HAS WEAKNESS DUE TO PAIN AND NEEDS AT LEAST STAND BY ASSISTANCE. FLUTTER &110 PER CHAIRMAN.
--- NOTE | 2021-09-04 13:17 | NUR ---
Spiritual care visit conducted. Patient is lying in bed and alert. Patient immediately tells me about the events that led to his hospitalization. Then he talks to me about his depression, loneliness and anxiety. We discuss his Yarsani belief system, his coping skills and resources. We explore sources of meaning, value and purpose. I assist pt in finding things that he can be thankful for. I normalize his experience, reinforce helpful attitudes and practices and provide therapeutic listneing and prayer. Pt responds well and shows signs of an elevated mood. I will continue to remain available to patient and family.
--- NOTE | 2021-09-04 19:57 | NUR ---
PATIENT NPO UPON ARRIVAL ON SHIFT. PRN PAIN MEDICATION ( PLEASE SEE MAR) GIVE UPON CLIENT REQUEST. CLIENT ABLE TO DRINK SOME LIQUIDS AND TAKE MEDICATIONS. URIBE TAKEN OUT FROM ED ADMISSION. PATIENT INCONINENT ON FIRST VOID BUT URINARY RETENTION NOT SEEN. CLIENT STABLE IN BED AND GETTING CONT FLUIDS IV ORDERED TODAY. REPORT GIVEN TO RN UPON ARRIVAL.
--- NOTE | 2021-09-05 02:44 | NUR ---
SHIFT SUMMARY 61 YR M ADMITTED ON 09/03/21 FOR A SEVERE UTI. FULL CODE. NO ACUTE CHANGES THIS SHIFT. PT APPEARS TO BE FEELING BETTER THAN LAST NIGHT AND IS PROACTIVE IN HIS PAIN MANAGEMENT. TODAY HE WAS GIVEN OXYCODONE RATHER THAN MORPHINE AND HAD GOOD RESULTS WITH IT. HE HAS NOT HAD NAUSEA OR VOMOITING THIS SHIFT AND HAS BEEN ABLE TO SLEEP FOR AT LEAST A FEW HOURS AT A TIME.
[2021-09-05 05:26] LABS: Hemoglobin 11.2 g/dL (13.5-17.5); Mean Corpuscular HGB 29.5 pg (26.0-34.0); Mean Corpuscular HGB Conc 31.1 g/dL (31.5-36.5); Mean Corpuscular Volume 95 fL (80-100); Mean Platelet Volume 10.5 fL (9.1-12.4); Platelet Count 149 K/mm3 (150-400); RDW Coefficient Variation 15.7 % (11.7-14.2); RDW Standard Deviation 53.9 fL (35.1-46.3); White Blood Cell Count 7.66 K/mm3 (4.00-11.30)
[2021-09-05 05:40] LABS: International Normalized Ratio 1.03; Prothrombin Time Results 10.8 Sec (9.7-11.5)
[2021-09-05 05:55] LABS: Albumin, Blood 3.1 g/dL (3.4-5.0); Bilirubin, Total 0.6 mg/dL (0.1-1.0); Bun/Creatinine Ratio 26.1 (12.0-20.0); Calcium, Blood 7.6 mg/dL (8.5-10.1); Creatinine, Blood 1.38 mg/dL (0.60-1.20); Globulin, Blood 3.1 g/dL (2.2-4.0); Total Protein, Blood 6.2 g/dL (6.4-8.2)
[2021-09-05] MEDS ORDERED: TAMS.4ER PO (14:36)
--- NOTE | 2021-09-05 15:35 | NUR ---
MD SAW PATIENT TODAY STATED THAT HIS LABS HAD IMPROVED AND COULD POSSIBLY GO HOME TODAY. DISCHARGE PAPERWORK SENT FROM MD WITH ORDERS FULFILLED. RN WENT THROUGH DISCHARGE PAPERWORK WITH THE PATIENT. PATIENT DID NOT HAVE ANY QUESTIONS AND STATED THEY UNDERSTOOD. PERIPHERAL IV'S REMOVED X2. PATIENT ALERT AND ORIENTED TO BASELINE PRIOR TO COMING TO THE HOSPITAL. PATIENT LEFT BY CAB BUT WAS OFFERED MEDICAL TRANSPORT AND DECLINED.
== END 2021-09-05 15:33 | disposition home or self-care (01) | DRG 872 ==
LOC: ER 13:29 → MEDS 20:29 → ENPENDDIS 09-05 12:37 → MEDS 09-05 15:33
PROVIDERS: Family Medicine; Internal Medicine; Pharmacist; Physician Assistant; ADMIT Internal Medicine
DX: A41.9 Sepsis, unspecified organism (principal); I48.92 Unspecified atrial flutter; E87.1 Hypo-osmolality and hyponatremia; N17.9 Acute kidney failure, unspecified; N39.0 Urinary tract infection, site not specified; E87.2 Acidosis; R65.20 Severe sepsis without septic shock; Z20.822 Contact with and (suspected) exposure to COVID-19; D63.1 Anemia in chronic kidney disease; I48.91 Unspecified atrial fibrillation; I25.10 Atherosclerotic heart disease of native coronary artery without angina pectoris; I12.9 Hypertensive chronic kidney disease with stage 1 through stage 4 chronic kidney disease, or unspecified chronic kidney disease; E86.9 Volume depletion, unspecified; N18.9 Chronic kidney disease, unspecified; J44.9 Chronic obstructive pulmonary disease, unspecified; F32.A Depression, unspecified; F43.10 Post-traumatic stress disorder, unspecified; F41.9 Anxiety disorder, unspecified; R79.1 Abnormal coagulation profile; K22.70 Barrett's esophagus without dysplasia; Z95.1 Presence of aortocoronary bypass graft; Z98.890 Other specified postprocedural states; I25.2 Old myocardial infarction; Z88.0 Allergy status to penicillin; Z88.2 Allergy status to sulfonamides; Z79.82 Long term (current) use of aspirin; Z79.01 Long term (current) use of anticoagulants; Z79.899 Other long term (current) drug therapy
CPT/HCPCS: 0241U; 36415; 51702; 51798; 71045; 74176; 80053; 81001; 83605; 83690; 83880; 84484; 85025; 85027; 85610; 87040; 87086; 93005; 93010; 96374; 96375; 96376; 99285-25; A9270; C9113; J0696; J1170; J1650; J2060; J2270; J2405; J7030

== ENCOUNTER 2021-09-16 10:05 | Inpatient (IN) | payer OTHER ==
[~2021-09-16] VITALS: Ht 177.8 cm; Wt 82.3 kg
[2021-09-16 11:01] LABS: BASOPHILS ABSOLUTE AUTO 0.06 K/mm3 (0.00-0.23); BASOPHILS PERCENT AUTO 0 % (0-2); EOSINOPHILS ABSOLUTE AUTO 0.01 K/mm3 (0.00-0.68); EOSINOPHILS PERCENT AUTO 0 % (0-6); Hematocrit 53.8 % (37.0-53.0); Hemoglobin 17.5 g/dL (13.5-17.5); IMMATURE GRAN ABSOLUTE AUTO 0.09 K/mm3 (0.00-0.10); IMMATURE GRAN PERCENT AUTO 1 % (0-1); LYMPHOCYTES ABSOLUTE AUTO 0.71 K/mm3 (0.84-5.20); LYMPHOCYTES PERCENT AUTO 4 % (21-46); MONOCYTES ABSOLUTE AUTO 0.76 K/mm3 (0.16-1.47); MONOCYTES PERCENT AUTO 4 % (4-13); Mean Corpuscular HGB 28.7 pg (26.0-34.0); Mean Corpuscular HGB Conc 32.5 g/dL (31.5-36.5); Mean Corpuscular Volume 88 fL (80-100); Mean Platelet Volume 9.7 fL (9.1-12.4); NEUTROPHILS ABSOLUTE AUTO 16.18 K/mm3 (1.96-9.15); NEUTROPHILS PERCENT AUTO 91 % (41-73); Platelet Count 405 K/mm3 (150-400); RDW Coefficient Variation 15.1 % (11.7-14.2); RDW Standard Deviation 49.1 fL (35.1-46.3); Red Blood Cell Count 6.09 M/mm3 (4.30-5.90); White Blood Cell Count 17.81 K/mm3 (4.00-11.30)
[2021-09-16 11:14] LABS: International Normalized Ratio 2.54; Prothrombin Time Results 25.1 Sec (9.7-11.5)
[2021-09-16 11:34] LABS: Albumin, Blood 4.5 g/dL (3.4-5.0); Albumin/Globulin Ratio 0.9 (0.8-1.8); Bun/Creatinine Ratio 12.5 (12.0-20.0); Calcium, Blood 9.7 mg/dL (8.5-10.1); Creatinine, Blood 1.44 mg/dL (0.60-1.20); Potassium, Blood 4.1 mmol/L (3.5-5.5); Total Protein, Blood 9.5 g/dL (6.4-8.2)
[2021-09-16 15:33] LABS: Source, Urine Clean Catch
[2021-09-16 15:43] LABS: Bilirubin, Urine Neg (Neg); Blood, Urine Neg (Neg); Glucose Qualitative, Urine Neg (Neg); Ketones, Urine Neg (Neg); Leukocyte Esterase, Urine Neg (Neg); Nitrite, Urine Neg (Neg); Protein, Urine Neg (Neg); Urobilinogen, Urine NORM (Normal)
[2021-09-16 15:46] LABS: Appearance, Urine Clear (Clear); Color, Urine Pale Yellow (P-Yellow)
[2021-09-16 15:48] LABS: U Amphetamine Screen Not Detected; U Barbituate Screen DETECTED; U Benzodiazapine Screen Not Detected; U Buprenorphine Screen Not Detected; U Cannabinoids Screen DETECTED; U Cocaine Screen Not Detected; U Methadone Screen Not Detected; U Methamphetamine Screen Not Detected; U Opiates Screen Not Detected; U Oxycodone Screen Not Detected; U Phencyclidine Screen Not Detected; U Propoxyphene Screen Not Detected
--- NOTE | 2021-09-16 17:43 | NUR ---
SHIFT SUMMARY PT HAS BEEN RESTING IN ROOM SINCE ADMISSION. PT HAS C/O PAIN TO THE ABD AND LOWER BACK 02/11, THIS HAS BEEN TREATED WITH POSITIONING, REST, AND MEDICATED PER EMAR. PT HAS BEEN IN ATRIAL FLUTTER WITH A RATE OF 89-144, DILTIAZEM GTT CURRENTLY RUNNING AT 5ML/HR. SBP 143-169. PT HAS REPOSITIONED SELF FREQUENTLY FOR COMFORT AND PRESSURE. PT SUCCESSFULLY VOIDED WITH A URINAL AT BEDSIDE.
[2021-09-17 04:38] LABS: Hemoglobin 12.7 g/dL (13.5-17.5); Mean Corpuscular HGB 29.3 pg (26.0-34.0); Mean Corpuscular HGB Conc 32.6 g/dL (31.5-36.5); Mean Corpuscular Volume 90 fL (80-100); Mean Platelet Volume 10.2 fL (9.1-12.4); Platelet Count 230 K/mm3 (150-400); RDW Coefficient Variation 15.2 % (11.7-14.2); RDW Standard Deviation 50.3 fL (35.1-46.3); Red Blood Cell Count 4.34 M/mm3 (4.30-5.90); White Blood Cell Count 8.85 K/mm3 (4.00-11.30)
[2021-09-17 05:10] LABS: Creatinine, Blood 1.31 mg/dL (0.60-1.20); Potassium, Blood 3.5 mmol/L (3.5-5.5)
--- NOTE | 2021-09-17 06:18 | NUR ---
SHIFT SUMMARY PT ALERT AND ORIENTED X4. STARTED SHIFT AFLUTTER 100'S, ON DILTIAZEM DRIP 5ML/HR. PT CONVERTED TO SR AT 2230 AND PT OFF DILTIAZEM DRIP AT 0045. HR MAINTAINED IN 60'S AND 70'S NSR SINCE. BP STABLE. COMPLAINT OF NAUSEA THROUGHOUT SHIFT. MEDICATED PER EMAR. X1 EPSIODE OF EMESIS, 180ML. VOIDS INDEPENDENTLY WITH BESIDE URINAL. LACTATED RINGERS INFUSING AT 150ML/HR. IN BED RESTING WITH CALL ALARM AT SIDE, WILL CONTINUE TO MONITOR UNTIL REPORT GIVEN TO DAYSPAMARIO ALBERTO WHITTINGTON
[2021-09-17] MEDS ORDERED: ALUM-MAG HYDROX30 ML PO (10:52)
[2021-09-17] MEDS ORDERED: OMEP20ER PO (10:53)
--- NOTE | 2021-09-17 11:09 | NUR ---
PT DISCHARGE Pt has been a/o x 4 today with c/o abdominal and back pain. He was medicated per Emar. Pt reports that he does not take any pain meds at home but he does have chronic back pain. His heart rate has been in the 70's in sinus rhythm with no c/o chest pain or SOB. He remains on RA. Dr Osorio saw him this morning and wrote DC orders.The med rec was faxed to [facility] per pt request. All instructions were reviewed with the pt who verbalized an understanding. Pt will follow up with his pcp and the coumadin clinic. He packed his personal items, called his own cab ride and was assisted down to the parking lot. Pt stable upon Dc.
== END 2021-09-17 11:12 | disposition home or self-care (01) | DRG 641 ==
LOC: ER 10:05 → PCU 14:20
PROVIDERS: Emergency Medicine; ADMIT Internal Medicine
DX: E87.2 Acidosis (principal); I42.1 Obstructive hypertrophic cardiomyopathy; I48.92 Unspecified atrial flutter; K22.10 Ulcer of esophagus without bleeding; I25.10 Atherosclerotic heart disease of native coronary artery without angina pectoris; K21.9 Gastro-esophageal reflux disease without esophagitis; Z95.2 Presence of prosthetic heart valve; E86.1 Hypovolemia; Z88.2 Allergy status to sulfonamides; Z88.0 Allergy status to penicillin; Z95.1 Presence of aortocoronary bypass graft; Z95.5 Presence of coronary angioplasty implant and graft; I10 Essential (primary) hypertension; J44.9 Chronic obstructive pulmonary disease, unspecified; F32.A Depression, unspecified; F41.9 Anxiety disorder, unspecified; Z98.890 Other specified postprocedural states; Z79.82 Long term (current) use of aspirin; Z79.899 Other long term (current) drug therapy; M32.9 Systemic lupus erythematosus, unspecified; E86.0 Dehydration; Z79.01 Long term (current) use of anticoagulants; F43.10 Post-traumatic stress disorder, unspecified
CPT/HCPCS: 36415; 51798; 71045; 74174; 80048; 80053; 81003; 83605; 83690; 83880; 84484; 85025; 85027; 85610; 87040; 93005; 93010; 96365; 96368; 96375; 99285-25; A9270; C9113; J0696; J0780; J1170; J2405; J7030; J7040; J7120; Q9967

== ENCOUNTER 2021-12-30 09:48 | Inpatient (IN) | payer OTHER ==
[~2021-12-30] VITALS: Ht 172.7 cm; Wt 74.5 kg
[~2021-12-30 09:48] MED LIST changes: +ALUM-MAG HYDROX30 ML PO
[2021-12-30 10:53] LABS: Albumin, Blood 4.3 g/dL (3.4-5.0); Bilirubin, Total 1.1 mg/dL (0.1-1.0); Bun/Creatinine Ratio 19.9 (12.0-20.0); Calcium, Blood 9.3 mg/dL (8.5-10.1); Creatinine, Blood 5.33 mg/dL (0.60-1.20); Globulin, Blood 4.3 g/dL (2.2-4.0); Potassium, Blood 4.8 mmol/L (3.5-5.5); Total Protein, Blood 8.6 g/dL (6.4-8.2)
[2021-12-30 11:03] LABS: BASOPHILS ABSOLUTE AUTO 0.02 K/mm3 (0.00-0.23); BASOPHILS PERCENT AUTO 0 % (0-2); EOSINOPHILS ABSOLUTE AUTO 0.01 K/mm3 (0.00-0.68); EOSINOPHILS PERCENT AUTO 0 % (0-6); Hematocrit 44.4 % (37.0-53.0); Hemoglobin 15.3 g/dL (13.5-17.5); IMMATURE GRAN ABSOLUTE AUTO 0.08 K/mm3 (0.00-0.10); IMMATURE GRAN PERCENT AUTO 1 % (0-1); LYMPHOCYTES ABSOLUTE AUTO 0.55 K/mm3 (0.84-5.20); LYMPHOCYTES PERCENT AUTO 4 % (21-46); MONOCYTES ABSOLUTE AUTO 1.42 K/mm3 (0.16-1.47); MONOCYTES PERCENT AUTO 10 % (4-13); Mean Corpuscular HGB 29.7 pg (26.0-34.0); Mean Corpuscular HGB Conc 34.5 g/dL (31.5-36.5); Mean Corpuscular Volume 86 fL (80-100); NEUTROPHILS ABSOLUTE AUTO 12.07 K/mm3 (1.96-9.15); NEUTROPHILS PERCENT AUTO 85 % (41-73); Platelet Count 221 K/mm3 (150-400); RDW Coefficient Variation 18.2 % (11.7-14.2); RDW Standard Deviation 58.4 fL (35.1-46.3); Red Blood Cell Count 5.15 M/mm3 (4.30-5.90); White Blood Cell Count 14.15 K/mm3 (4.00-11.30)
[2021-12-30 13:52] LABS: Source, Urine Clean Catch
[2021-12-30 13:56] LABS: Base Excess Venous -5.5 mmol/L; Bicarbonate Venous 19.6 mmol/L (24.0-30.0); PCO2 Venous 42.4 mmHg (38-42)
[2021-12-30 13:56] LABS: Appearance, Urine Clear (Clear); Bilirubin, Urine Neg (Neg); Blood, Urine 1+ (Neg); Color, Urine Yellow (P-Yellow); Glucose Qualitative, Urine Neg (Neg); Ketones, Urine 1+ (Neg); Leukocyte Esterase, Urine Neg (Neg); Nitrite, Urine Neg (Neg); Protein, Urine 1+ (Neg); Urobilinogen, Urine NORM (Normal)
[2021-12-30 14:03] LABS: International Normalized Ratio 1.15
[2021-12-30 14:12] LABS: Amorphous Light (0-Heavy); Bacteria Mod /hpf; Mucus Light (0-Heavy); Squamous Epithelial Cells Mod /hpf (Few)
[2021-12-30 14:17] LABS: U Amphetamine Screen Not Detected; U Barbituate Screen Not Detected; U Benzodiazapine Screen Not Detected; U Buprenorphine Screen Not Detected; U Cannabinoids Screen DETECTED; U Cocaine Screen Not Detected; U Methadone Screen Not Detected; U Methamphetamine Screen Not Detected; U Opiates Screen Not Detected; U Oxycodone Screen Not Detected; U Phencyclidine Screen Not Detected; U Propoxyphene Screen Not Detected
[2021-12-30 14:58] LABS: SARS-Cov-2 (COVID-19) PCR, MMC NEGATIVE (NEGATIVE)
[2021-12-30 17:08] LABS: Hematocrit 40.7 % (37.0-53.0)
--- NOTE | 2021-12-30 18:21 | NUR ---
PARTIAL SHIFT SUMMARY- ASSUMED CARE OF PT MID SHIFT. PT A@O X3. PT ABLE TO BEAR WEIGHT AND STAND WHEN NEEDED. PT DIZZY WITH TRANSFER, NO VOMITING NOTED. PT DRANK SMALL AMOUNTS OF CLEAR LIQUID AND KEPT IT DOWN BUT STILL NAUSATED. PT RESTING COMFORTABLY WITH CALL LIGHT IN REACH, SIDE RAILS UP, AND ALARM ON.
[2021-12-31 01:19] LABS: Hemoglobin 13.3 g/dL (13.5-17.5)
--- NOTE | 2021-12-31 03:47 | NUR ---
PT IS A/OX4. HE WAS VERY CALM AND PATIENT WITH CARE. HE DID HAVE C/O OF INCREASING PAIN AND THE RN INFORMED THE MD. PRN FENTANYL WAS ORDERED AND HAS BEEN EFFECTIVE IN REDUCING HIS PAIN. HEPARIN DRIP WAS ADJUSTED BY PHARM AND THERE ARE NO OTHER CHANGES TO REPORT THIS SHIFT. WE'LL CONTINUE TO MONITOR.
[2021-12-31 07:59] LABS: International Normalized Ratio 1.18; Prothrombin Time Results 12.3 Sec (9.7-11.5)
[2021-12-31 08:04] LABS: BASOPHILS ABSOLUTE AUTO 0.01 K/mm3 (0.00-0.23); BASOPHILS PERCENT AUTO 0 % (0-2); EOSINOPHILS ABSOLUTE AUTO 0.03 K/mm3 (0.00-0.68); EOSINOPHILS PERCENT AUTO 0 % (0-6); Hematocrit 35.5 % (37.0-53.0); IMMATURE GRAN ABSOLUTE AUTO 0.05 K/mm3 (0.00-0.10); IMMATURE GRAN PERCENT AUTO 1 % (0-1); LYMPHOCYTES ABSOLUTE AUTO 0.52 K/mm3 (0.84-5.20); LYMPHOCYTES PERCENT AUTO 7 % (21-46); MONOCYTES ABSOLUTE AUTO 0.97 K/mm3 (0.16-1.47); MONOCYTES PERCENT AUTO 13 % (4-13); Mean Corpuscular HGB 30.1 pg (26.0-34.0); Mean Corpuscular HGB Conc 33.8 g/dL (31.5-36.5); Mean Corpuscular Volume 89 fL (80-100); NEUTROPHILS ABSOLUTE AUTO 5.76 K/mm3 (1.96-9.15); NEUTROPHILS PERCENT AUTO 79 % (41-73); Platelet Count 129 K/mm3 (150-400); RDW Coefficient Variation 17.8 % (11.7-14.2); RDW Standard Deviation 58.6 fL (35.1-46.3); Red Blood Cell Count 3.99 M/mm3 (4.30-5.90); White Blood Cell Count 7.34 K/mm3 (4.00-11.30)
[2021-12-31 08:13] LABS: Albumin/Globulin Ratio 1.1 (0.8-1.8); Bilirubin, Total 0.7 mg/dL (0.1-1.0); Bun/Creatinine Ratio 23.9 (12.0-20.0); Calcium, Blood 7.9 mg/dL (8.5-10.1); Creatinine, Blood 3.89 mg/dL (0.60-1.20); Globulin, Blood 2.8 g/dL (2.2-4.0); Potassium, Blood 3.6 mmol/L (3.5-5.5)
[2021-12-31 08:16] LABS: Total Protein, Blood 5.8 g/dL (6.4-8.2)
--- NOTE | 2021-12-31 13:03 | NUR ---
Upon receiving a spiritual care referral, I visit pt. Pt tells me about his medical issues and the medical plan going forward. He then shares about his personal struggles with depression and anxiety. We talk about his stressors, family unit complications, loneliness and limitations. I gently advise pt, explore sources of value and spiritual beliefs, reinforce helpful attitudes and practices and provide therapeutic listening and prayer. Patient responds well and shows signs of an elevated mood and increased peace. I will continue to remain available to patient and family.
--- NOTE | 2021-12-31 16:48 | NUR ---
PT B/P SOFT. CONTACTED . ORDERED BLADDER SCAN. WILL CONTACT DR WITH RESULTS, HOLDING CO-REG PER DR ORDER. PT NAUSEA MEDICATED PER EMAR. WILL CONTINUE TO MONITOR.
--- NOTE | 2021-12-31 16:57 | NUR ---
BLADDER SCAN 81ML OR LESS
[2021-12-31 17:18] LABS: Hematocrit 30.3 % (37.0-53.0); Hemoglobin 10.4 g/dL (13.5-17.5)
--- NOTE | 2021-12-31 18:01 | NUR ---
SHIFT SUMMARY- PT C/O OF ABDOMINAL PAIN, MEDICATED SEE EMAR. PT BEDFAST DUE TO INFUSION BUT WOULD LIKE TO AMBULATE ONCE ABLE. PT EPISODE OF LOW B/P AROUND 1500. NOTIFIED, TREATED PT PER ORDERS IN EMAR. PT A&O X4. PT APPETITE IMROVING, NO VOMITING TODAY, NAUSEA WITH LOW B/P EPISODE, MEDICATED PER EMAR. HELD COREG PER DR ORDERS. PT RSTING NOW WITH CALL LIGHT IN REACH, AND SIDE RAILS UP FOR SAFETY.
[2022-01-01 06:00] LABS: Albumin, Blood 2.9 g/dL (3.4-5.0); Anion Gap 9 mmol/L (6-16); Blood Urea Nitrogen 67 mg/dL (8-24); Bun/Creatinine Ratio 28.2 (12.0-20.0); CO2, Blood 23 mmol/L (21-32); Calcium, Blood 7.8 mg/dL (8.5-10.1); Chloride, Blood 103 mmol/L (98-108); Creatinine, Blood 2.38 mg/dL (0.60-1.20); Glomerular Filtration Rate 30 (60-); Glucose, Blood 81 mg/dL (70-99); Potassium, Blood 3.6 mmol/L (3.5-5.5); Sodium, Blood 135 mmol/L (136-145)
[2022-01-01 06:01] LABS: Phosphorus, Blood 2.9 mg/dL (2.5-4.9)
--- NOTE | 2022-01-01 06:10 | NUR ---
SHIFT SUMMARY PATIENT ALERT AND ORIENTED. MEDICATED PER EMAR FOR PAIN. NO COMPLAINTS OF SHORTNESS OF BREATH. COMPLAINED OF DIZZINESS UPON SITTING AND STANDING AT BEDSIDE. NO OTHER ACUTE ISSUES NOTED. CALL LIGHT WITHIN REACH. REPORT GIVEN TO ONCOMING RN.
[2022-01-01 09:57] LABS: Hematocrit 32.6 % (37.0-53.0); Hemoglobin 10.9 g/dL (13.5-17.5)
[2022-01-01] MEDS ORDERED: CARV6.25 PO (12:34)
[2022-01-01] MEDS ORDERED: ENOX80I SC (12:41)
--- NOTE | 2022-01-01 13:30 | NUR ---
DISCHARGE PT A&OX4 @ TIME OF DC. PT PROVIDED W/ VERBAL AND WRITTEN INFORMATION, PT VERBALIZED UNDERSTANDING. 2XIV DC. TOLERATING PO INTAKE WELL. [facility] PROVIDED FOR TRANSPORT, WC ESCORT TO [facility]. MEDS FAXED INTO [facility].
== END 2022-01-01 13:21 | disposition home or self-care (01) | DRG 683 ==
LOC: ER 09:48 → MEDS 13:16 → EDBEDREQ 13:51 → MEDS 16:28
PROVIDERS: Emergency Medicine; Nurse Practitioner Acute Care; ADMIT Internal Medicine
DX: N17.9 Acute kidney failure, unspecified (principal); I48.92 Unspecified atrial flutter; I42.1 Obstructive hypertrophic cardiomyopathy; R04.2 Hemoptysis; E87.2 Acidosis; E87.1 Hypo-osmolality and hyponatremia; R65.10 Systemic inflammatory response syndrome (SIRS) of non-infectious origin without acute organ dysfunction; Z20.822 Contact with and (suspected) exposure to COVID-19; R33.9 Retention of urine, unspecified; I25.10 Atherosclerotic heart disease of native coronary artery without angina pectoris; F12.10 Cannabis abuse, uncomplicated; K21.9 Gastro-esophageal reflux disease without esophagitis; F32.A Depression, unspecified; D72.829 Elevated white blood cell count, unspecified; F43.10 Post-traumatic stress disorder, unspecified; J44.9 Chronic obstructive pulmonary disease, unspecified; F41.9 Anxiety disorder, unspecified; E86.0 Dehydration; I12.9 Hypertensive chronic kidney disease with stage 1 through stage 4 chronic kidney disease, or unspecified chronic kidney disease; N18.9 Chronic kidney disease, unspecified; D63.1 Anemia in chronic kidney disease; K76.0 Fatty (change of) liver, not elsewhere classified; D75.1 Secondary polycythemia; Z95.4 Presence of other heart-valve replacement; I25.2 Old myocardial infarction; Z98.890 Other specified postprocedural states; Z88.2 Allergy status to sulfonamides; Z88.0 Allergy status to penicillin; Z79.01 Long term (current) use of anticoagulants; Z79.82 Long term (current) use of aspirin; Z79.899 Other long term (current) drug therapy
CPT/HCPCS: 36415; 71045; 74177; 80053; 80069; 81001; 82550; 82803; 82947; 83690; 83735; 83880; 84100; 85014; 85018; 85025; 85520; 85610; 87040; 87086; 93005; 93010; 96361; 96374; 96375; 96376; 99285-25; A9270; J1644; J1650; J2270; J2405; J2765; J3010; J7030; J7120; Q9967; U0004

== ENCOUNTER → 2022-08-25 | Outpatient (CLI) | payer OTHER ==
[~2022-08-25] MED LIST changes: +CARV6.25 PO
[2022-08-25 11:51] LABS: BASOPHILS ABSOLUTE AUTO 0.04 K/mm3 (0.00-0.23); BASOPHILS PERCENT AUTO 1 % (0-2); EOSINOPHILS ABSOLUTE AUTO 0.18 K/mm3 (0.00-0.68); EOSINOPHILS PERCENT AUTO 2 % (0-6); Hematocrit 37.4 % (37.0-53.0); Hemoglobin 11.7 g/dL (13.5-17.5); IMMATURE GRAN ABSOLUTE AUTO 0.04 K/mm3 (0.00-0.10); IMMATURE GRAN PERCENT AUTO 1 % (0-1); LYMPHOCYTES ABSOLUTE AUTO 0.71 K/mm3 (0.84-5.20); LYMPHOCYTES PERCENT AUTO 9 % (21-46); MONOCYTES ABSOLUTE AUTO 0.89 K/mm3 (0.16-1.47); MONOCYTES PERCENT AUTO 11 % (4-13); Mean Corpuscular HGB 22.8 pg (26.0-34.0); Mean Corpuscular HGB Conc 31.3 g/dL (31.5-36.5); Mean Corpuscular Volume 73 fL (80-100); Mean Platelet Volume 8.7 fL (9.1-12.4); NEUTROPHILS ABSOLUTE AUTO 6.33 K/mm3 (1.96-9.15); NEUTROPHILS PERCENT AUTO 77 % (41-73); Platelet Count 351 K/mm3 (150-400); RDW Coefficient Variation 20.9 % (11.7-14.2); RDW Standard Deviation 54.4 fL (35.1-46.3); Red Blood Cell Count 5.13 M/mm3 (4.30-5.90); White Blood Cell Count 8.19 K/mm3 (4.00-11.30)
[2022-08-25 12:12] LABS: International Normalized Ratio 2.78; Prothrombin Time Results 27.3 Sec (9.7-11.5)
[2022-08-25 14:55] LABS: Percent Saturation 6.4 % (20.0-50.0)
[2022-08-25 15:49] LABS: Albumin, Blood 3.2 g/dL (3.4-5.0); Albumin/Globulin Ratio 0.8 (0.8-1.8); Bilirubin, Total 0.5 mg/dL (0.1-1.0); Bun/Creatinine Ratio 15.9 (12.0-20.0); Calcium, Blood 8.4 mg/dL (8.5-10.1); Creatinine, Blood 1.13 mg/dL (0.60-1.20); Globulin, Blood 4.1 g/dL (2.2-4.0); Thyroid Stimulating Hormone 1.9 uIU/mL (0.360-4.800); Total Protein, Blood 7.3 g/dL (6.4-8.2)
== END | disposition home or self-care (01) ==
LOC: LAB SHORT 10:20 → LAB 10:20
PROVIDERS: Internal Medicine Cardiovascular Disease; Physician Assistant Medical
DX: D50.0 Iron deficiency anemia secondary to blood loss (chronic) (principal); K61.1 Rectal abscess; R41.3 Other amnesia; Z95.2 Presence of prosthetic heart valve
CPT/HCPCS: 36415; 80053; 82607; 82728; 82746; 83540; 83550; 84443; 85025; 85060; 85610

== ENCOUNTER 2022-11-05 09:34 | Day surgery (SDC) | payer OTHER ==
[~2022-11-05] VITALS: Ht 172.7 cm; Wt 90.7 kg
[2022-11-05] VITALS (9 sets, daily range): BP systolic 131–174; BP diastolic 77–93
[~2022-11-05 09:34] MED LIST changes: +Cefpodoxime Pr200 MG PO
[2022-11-05] MEDS ORDERED: ENOX80I (09:58)
[2022-11-05] MEDS ORDERED: ENOX80I SC (09:59)
--- NOTE | 2022-11-05 10:15 | NUR ---
Ambulatory in Day Surgery with walker. History, Chart, Medications and Allergies reviewed before start of procedure.12 lead ecg done. Patient reports completing Chlorhexadine shower X2 prior to admission to hospital.Patient confirms NPO status and agrees with scheduled surgery. Patient States Post-Procedure ride home has been arranged.
--- NOTE | 2022-11-05 12:46 | NUR ---
Patient up to Ambulate independently. Gait steady. Discharge instructions reviewed with patient. Patient verbalizes understanding. Copy given to patient to take home. Patient States Post-Procedure ride home has been arranged. Discharged via wheelchair to private car for ride home. PT HAS SMALL AMT OF DRAINAGE ON GAUZE. PT REPORTS HAVING DRESSING SUPPLIES AND ICE AT HOME. PT REPORTS KNOWING HIS INSTRUCTIONS FOR HIS WOUND CARE.
== END 2022-11-05 12:46 | disposition home or self-care (01) ==
LOC: ORSCMMR 09:34 → ORD 11:45 → ORSCMMR 11:45
PROVIDERS: Surgery
PROC: 0D9QXZZ Drainage of Anus, External Approach (ICD-10-PCS; principal; 2022-11-05 11:45)
DX: K61.1 Rectal abscess (principal); I48.92 Unspecified atrial flutter; Z79.01 Long term (current) use of anticoagulants; I25.10 Atherosclerotic heart disease of native coronary artery without angina pectoris; J44.9 Chronic obstructive pulmonary disease, unspecified; K21.9 Gastro-esophageal reflux disease without esophagitis; I10 Essential (primary) hypertension; Z79.899 Other long term (current) drug therapy
CPT/HCPCS: 93005; 93010; A9270; J0330; J0694; J1100; J2250; J2270; J2704; J3010; J7120

== ENCOUNTER → 2023-01-07 | Outpatient (CLI) | payer OTHER ==
[~2023-01-07] MED LIST changes: +ENOX80I
== END | disposition home or self-care (01) ==
LOC: LAB SHORT 15:42 → LAB 15:42
DX: K61.0 Anal abscess (principal)
CPT/HCPCS: 87070; 87075; 87076; 87185; 87205

== ENCOUNTER 2023-02-23 09:18 | Day surgery (SDC) | payer OTHER ==
[~2023-02-23] VITALS: Ht 172.7 cm; Wt 92.0 kg
[2023-02-23] VITALS (25 sets, daily range): BP systolic 126–177; BP diastolic 83–115
[~2023-02-23 09:18] MED LIST changes: +ABILIFY MYCITE5 M2 PO; +AMIODARONE HCL PO; +FERSU300 PO; +Norco 5-325 Ta1 EACH PO; +Prinivil10 MG PO; +TRITOCIN430 GM TOP
--- NOTE | 2023-02-23 11:31 | NUR ---
History, Chart, Medications and Allergies reviewed before start of procedure. Patient confirms NPO status and agrees with scheduled surgery. Pre-Op teaching done. Pt verbalizes understanding. Patient states colon prep results light yellow. Patient States Post-Procedure ride home has been arranged.
[2023-02-23 12:00] LABS: Bun/Creatinine Ratio 8.1 (12.0-20.0); Calcium, Blood 9.2 mg/dL (8.5-10.1); Creatinine, Blood 1.23 mg/dL (0.60-1.20); Potassium, Blood 3.8 mmol/L (3.5-5.5)
--- NOTE | 2023-02-23 12:51 | NUR ---
02/23/[address] COOL IN OR 2; SEE ANESTHESIA RECORDS.
--- NOTE | 2023-02-23 17:51 | NUR ---
1700 RECEIVED PATIETN FROM PACU, AWAKE VSS. SUKUMAR PAD W/ MADONNA PANTS AND SM RED DRAINAGE ON PAD. 174 ANBULATE TO BR W/C ASSIST STEADY ON FEET 1754 PAIN PILL GIVEN 10/12
--- NOTE | 2023-02-23 17:56 | NUR ---
WAITING FOR RIDE HOME
== END 2023-02-23 22:36 | disposition home or self-care (01) ==
LOC: ORSCMMR 09:18 → ORD 11:00 → ORSCMMR 22:36
PROVIDERS: Surgery
PROC: 0D9Q7ZZ Drainage of Anus, Via Natural or Artificial Opening (ICD-10-PCS; principal; 2023-02-23 11:00)
PROC: 0DBH8ZX Excision of Cecum, Via Natural or Artificial Opening Endoscopic, Diagnostic (ICD-10-PCS; principal; 2023-02-23 11:00)
PROC: 0D9P7ZZ Drainage of Rectum, Via Natural or Artificial Opening (ICD-10-PCS; principal; 2023-02-23 11:00)
PROC: 0DBN8ZX Excision of Sigmoid Colon, Via Natural or Artificial Opening Endoscopic, Diagnostic (ICD-10-PCS; principal; 2023-02-23 11:00)
DX: Z12.11 Encounter for screening for malignant neoplasm of colon (principal); D12.5 Benign neoplasm of sigmoid colon; K63.5 Polyp of colon; K60.3 Anal fistula; I10 Essential (primary) hypertension; I25.10 Atherosclerotic heart disease of native coronary artery without angina pectoris; J44.9 Chronic obstructive pulmonary disease, unspecified; K21.9 Gastro-esophageal reflux disease without esophagitis; I25.2 Old myocardial infarction; I48.91 Unspecified atrial fibrillation; Z79.01 Long term (current) use of anticoagulants; Z79.899 Other long term (current) drug therapy
CPT/HCPCS: 80048; 88305; A9270; J0690; J1100; J1170; J2405; J2704; J2765; J3010; J7120

== ENCOUNTER 2024-10-31 06:42 | Emergency (ER) | payer OTHER ==
[~2024-10-31] VITALS: Ht 172.7 cm; Wt 97.5 kg
[2024-10-31] MEDS ORDERED: Tranexamic Acid 1000 MG/10 ML 10ML Vial (SDV) ONE (07:05)
[2024-10-31] MEDS ORDERED: Oxymetazoline 0.05% Nasal Relief Spray 15mL BTL ONE (07:05)
[2024-10-31] MEDS ORDERED: Ondansetron HCl 2 MG / ML 2ML Vial IV ONE (07:25)
[2024-10-31] MEDS ORDERED: HYDROcodone 5-APAP 325 TAB PO ONE (07:45)
[2024-10-31 07:55] LABS: Hematocrit 43.4 % (37.0-53.0); Hemoglobin 14.6 g/dL (13.5-17.5)
[2024-10-31 08:10] LABS: International Normalized Ratio 3.3; Prothrombin Time Results 32.3 Sec (9.7-11.5)
[2024-10-31 08:42] VITALS: BP 179/103
== END 2024-10-31 08:44 | disposition home or self-care (01) ==
LOC: ER 06:42
PROVIDERS: Emergency Medicine
DX: R04.0 Epistaxis (principal); I48.91 Unspecified atrial fibrillation; J44.9 Chronic obstructive pulmonary disease, unspecified; K21.9 Gastro-esophageal reflux disease without esophagitis; I25.2 Old myocardial infarction; I12.9 Hypertensive chronic kidney disease with stage 1 through stage 4 chronic kidney disease, or unspecified chronic kidney disease; N18.9 Chronic kidney disease, unspecified; Z79.01 Long term (current) use of anticoagulants; Z79.82 Long term (current) use of aspirin; Z79.899 Other long term (current) drug therapy; Z88.2 Allergy status to sulfonamides; Z88.0 Allergy status to penicillin
CPT/HCPCS: 85014; 85018; 85610; 85730; 99283; A9270

== ENCOUNTER → 2025-01-03 | Outpatient (CLI) | payer OTHER ==
[~2025-01-03] MED LIST changes: +CLIN300 PO
== END | disposition home or self-care (01) ==
LOC: LAB 07:28 → LAB SHORT 07:28
DX: D23.112 Other benign neoplasm of skin of right lower eyelid, including canthus (principal)
CPT/HCPCS: 88305; 88341; 88342